=== PATIENT | female | born 1960 | race Hispanic/Latino ===

== ENCOUNTER → 2016-05-21 | Outpatient (CLI) | payer OTHER ==
[~2016-05-21] MED LIST: *ANUSOI RE; /FENT50PA; ACET65TA OR; ALBU17IN2 INH; ALBU83IN INH; ALBUTEROL; ASPI1TAB PO; CELLCEPT; COLA100C2 OR; COMBVENT; DIAZ10TA2 PO; DIAZ5CON PO; DRISDOL PO; DULC10SU2 PR; FLON0.05; INSUDET SC; INSULANT SC; LEVA750T PO; LOPR50TA PO; MORP1SOL PO; NITR4TASL SL; NYST50SS SS; ONDA1TAB16 PO; OXYC1SOL PO; OXYC1TAB57 PO; OXYC20TA21 PO; OXYC40TA12 PO; OXYC40TA19 OR; OXYC5CAP4; OXYC5CAP4 PO; OXYCO5TA PO; PRED5SOL10 PO; PRED5TAB OR; SILV1CRE19 TOP; SILV50CR TOP; TIZA4TAB OR; TYLE325T5 PO; VALI5TAB; VALI5TAB PO; XANA0.25 PO; [UNRECOGNIZED DRUG - CODE]; [UNRECOGNIZED DRUG - CODE] PO; [UNRECOGNIZED DRUG - CODE] PO; [UNRECOGNIZED DRUG - CODE] PV; [UNRECOGNIZED DRUG - OTHER]; [UNRECOGNIZED DRUG - OTHER]; hydroxychloroquine
[2016-05-21 20:37] LABS: ANION GAP 9 MEQ/L (8-16); BLOOD UREA NITROGEN 11 MG/DL (7-18); CALCIUM LEVEL 8.6 MG/DL (8.5-10.1); CARBON DIOXIDE LEVEL 24 MEQ/L (21-32); CHLORIDE LEVEL 108 MEQ/L (98-107); GLOMERULAR FILTRATION RATE > 60.0 (>51); GLUCOSE, FASTING 109 MG/DL (70-105); POTASSIUM SERUM 3.8 MEQ/L (3.5-5.1); SODIUM LEVEL 141 MEQ/L (136-145)
== END ==
LOC: M WUC 16:23
PROVIDERS: ATTEND Family Medicine
DX: M62.838 Other muscle spasm (principal)

== ENCOUNTER → 2016-08-11 | Outpatient (CLI) | payer OTHER ==
[~2016-08-11] MED LIST changes: +LOPR1TAB6 PO; -LOPR50TA PO; +OXYC-517 PO; -OXYC40TA12 PO; +OXYC40TA13 PO; -OXYCO5TA PO
== END ==
LOC: M LAB 12:43
PROVIDERS: ATTEND Nurse Practitioner Family
DX: A09 Infectious gastroenteritis and colitis, unspecified (principal); R10.32 Left lower quadrant pain; R50.9 Fever, unspecified
CPT/HCPCS: 36415; 80053; 82150; 83690; 83735; 85025; G0463

== ENCOUNTER → 2016-11-24 | Outpatient (CLI) | payer OTHER ==
[~2016-11-24] MED LIST changes: -LEVA750T PO; +LEVA750T7 PO; -ONDA1TAB16 PO; +ONDA8TAB7 PO; +OXYC-405 PO; -OXYC1SOL PO; +OXYC1SOL3 PO; -OXYC1TAB57 PO; -OXYC20TA21 PO; +OXYC20TA40 PO; -OXYC40TA13 PO; +OXYC40TA29 PO; -SILV1CRE19 TOP; +SILV1CRE60 TOP
[2016-11-24 19:33] LABS: MEAN CORPUSCULAR HEMOGLOBIN 23.2 pg (27.0-33.0); MEAN CORPUSCULAR HGB CONC 31.8 g/dl (32.0-36.5); MEAN CORPUSCULAR VOLUME 72.8 fl (80.0-96.0); RED CELL DISTRIBUTION WIDTH 15.6 % (11.5-14.5)
[2016-11-24 20:03] LABS: ALBUMIN 3.2 GM/DL (3.2-5.2); ALKALINE PHOSPHATASE 124 U/L (45-117); ALT/SGPT 16 U/L (12-78); ANION GAP 7 MEQ/L (8-16); AST/SGOT 33 U/L (15-37); BILIRUBIN,TOTAL 0.6 MG/DL (0.2-1.0); BLOOD UREA NITROGEN 11 MG/DL (7-18); CALCIUM LEVEL 8.6 MG/DL (8.5-10.1); CARBON DIOXIDE LEVEL 27 MEQ/L (21-32); CHLORIDE LEVEL 105 MEQ/L (98-107); CREATININE FOR GFR 0.95 MG/DL (0.55-1.02); GLOMERULAR FILTRATION RATE > 60.0 (>51); GLUCOSE, FASTING 137 MG/DL (70-105); MAGNESIUM LEVEL 2.2 MG/DL (1.8-2.4); POTASSIUM SERUM 4.3 MEQ/L (3.5-5.1); SODIUM LEVEL 139 MEQ/L (136-145); TOTAL PROTEIN 7.8 GM/DL (6.4-8.2)
== END ==
LOC: M SMT 14:55
PROVIDERS: ATTEND Physician Assistant
DX: M32.19 Other organ or system involvement in systemic lupus erythematosus (principal); D89.9 Disorder involving the immune mechanism, unspecified; R25.2 Cramp and spasm
CPT/HCPCS: 36415; 80053; 83735; 85027; G0463

== ENCOUNTER → 2017-01-21 | Outpatient (CLI) | payer OTHER ==
[2017-01-21 17:38] LABS: IONIZED CALCIUM 4.6 MG/DL (4.5-5.3)
[2017-01-21 20:06] LABS: MAGNESIUM LEVEL 1.9 MG/DL (1.8-2.4); POTASSIUM SERUM 3.7 MEQ/L (3.5-5.1)
== END ==
LOC: M SMT 14:35
PROVIDERS: ATTEND Family Medicine
DX: R25.2 Cramp and spasm (principal)

== ENCOUNTER → 2017-05-07 | Outpatient (CLI) | payer OTHER ==
--- NOTE | 2017-05-07 15:11 | REP ---
Abdominal aortic sonography: History: Abdominal pain. Comparison CT abdomen is from July 24, 2015. No abdominal aortic aneurysm is seen. The abdominal aorta measures 2.2 cm in AP by 2.7 cm in transverse dimension proximally at the diaphragmatic hiatus. At the level of the main renal artery origins these dimensions are 1.6 x 1.9 cm. The distal aorta measures 1.6 x 1.4 cm. Right and left common iliac arteries are normal measuring 0.9 and 1.0 cm in AP dimension respectively. Impression: No abdominal aortic aneurysm seen. Signed by Alejandro Blandon MD 05/07/2017 04:02 P
== END ==
LOC: M RAD 08:06
PROVIDERS: ATTEND Family Medicine
DX: R10.9 Unspecified abdominal pain (principal)

== ENCOUNTER → 2017-06-10 | Outpatient (CLI) | payer OTHER ==
[2017-06-10 18:56] LABS: BASO % 0.3 % (0.0-1.0); EOS # 0.1 10^3/uL (0.0-0.50); EOS % 2.3 % (0.0-3.0); HEMATOCRIT 34.9 % (36.0-47.0); HEMOGLOBIN 10.9 g/dl (12.0-16.0); IMMATURE GRANULOCYTE % 0.2 % (0-0); LYMPH # 2.8 10^3/uL (1.5-4.5); LYMPH % 48.7 % (24.0-44.0); MEAN CORPUSCULAR HEMOGLOBIN 24.2 pg (27.0-33.0); MEAN CORPUSCULAR HGB CONC 31.2 g/dl (32.0-36.5); MEAN CORPUSCULAR VOLUME 77.6 fl (80.0-96.0); MONO # 0.7 10^3/uL (0.0-0.8); MONO % 11.7 % (0.0-5.0); NEUTROPHILS # 2.1 10^3/uL (1.8-7.7); NEUTROPHILS % 36.8 % (36.0-66.0); PLATELET COUNT, AUTOMATED 284 10^3/uL (150-450); RED CELL DISTRIBUTION WIDTH 14.5 % (11.5-14.5); WHITE BLOOD COUNT 5.7 10^3/uL (4.0-10.0)
[2017-06-10 19:56] LABS: ALBUMIN 3.3 GM/DL (3.2-5.2); ALBUMIN/GLOBULIN RATIO 0.79 (1.00-1.93); ALKALINE PHOSPHATASE 118 U/L (45-117); ALT/SGPT 32 U/L (12-78); ANION GAP 6 MEQ/L (8-16); AST/SGOT 50 U/L (7-37); BILIRUBIN,TOTAL 0.4 MG/DL (0.2-1.0); BLOOD UREA NITROGEN 11 MG/DL (7-18); CALCIUM LEVEL 8.4 MG/DL (8.5-10.1); CARBON DIOXIDE LEVEL 29 MEQ/L (21-32); CHLORIDE LEVEL 106 MEQ/L (98-107); CREATININE FOR GFR 0.78 MG/DL (0.55-1.02); GLOMERULAR FILTRATION RATE > 60.0 (>51); GLUCOSE, FASTING 135 MG/DL (70-100); MAGNESIUM LEVEL 2.2 MG/DL (1.8-2.4); POTASSIUM SERUM 4.4 MEQ/L (3.5-5.1); SODIUM LEVEL 141 MEQ/L (136-145); TOTAL PROTEIN 7.5 GM/DL (6.4-8.2)
[2017-06-12 08:07] LABS: CYTOMEGALOVIRUS IgG ANTIBODY <0.60 U/mL (0.00-0.59)
[2017-06-12 08:07] LABS: CYTOMEGALOVIRUS IgM ANTIBODY <30.0 AU/mL (0.0-29.9)
[2017-06-12 11:02] LABS: HEP C VIRUS AB SCREEN MEDICARE 0.1 INDEX (<0.8)
[2017-06-12 11:03] LABS: HIV 1&2 SCREEN CENTAUR NEGATIVE (NEGATIVE)
== END ==
LOC: M SMT 15:25
DX: R10.84 Generalized abdominal pain (principal); R25.2 Cramp and spasm
CPT/HCPCS: 83735

== ENCOUNTER 2017-06-13 13:13 | Emergency (ER) | payer OTHER ==
[2017-06-13] MEDS: NS 500 ML IV (14:55)
[2017-06-13 15:02] LABS: BASO % 0.4 % (0.0-1.0); EOS # 0.1 10^3/uL (0.0-0.50); EOS % 1.7 % (0.0-3.0); HEMATOCRIT 36.7 % (36.0-47.0); HEMOGLOBIN 11.5 g/dl (12.0-16.0); IMMATURE GRANULOCYTE % 0.1 % (0-0); LYMPH # 2.4 10^3/uL (1.5-4.5); LYMPH % 34.2 % (24.0-44.0); MEAN CORPUSCULAR HEMOGLOBIN 24.2 pg (27.0-33.0); MEAN CORPUSCULAR HGB CONC 31.3 g/dl (32.0-36.5); MEAN CORPUSCULAR VOLUME 77.3 fl (80.0-96.0); MONO # 0.7 10^3/uL (0.0-0.8); MONO % 9.5 % (0.0-5.0); NEUTROPHILS # 3.8 10^3/uL (1.8-7.7); NEUTROPHILS % 54.1 % (36.0-66.0); PLATELET COUNT, AUTOMATED 323 10^3/uL (150-450); RED BLOOD COUNT 4.75 10^6/uL (4.00-5.40); RED CELL DISTRIBUTION WIDTH 14.4 % (11.5-14.5)
[2017-06-13] MEDS: MORPHINE 4 MG/ML 1ML SYRINGE IV (15:35)
[2017-06-13 15:41] LABS: ALBUMIN 3.5 GM/DL (3.2-5.2); ALBUMIN/GLOBULIN RATIO 0.67 (1.00-1.93); ALKALINE PHOSPHATASE 109 U/L (45-117); ALT/SGPT 38 U/L (12-78); ANION GAP 5 MEQ/L (8-16); AST/SGOT 57 U/L (7-37); BILIRUBIN,DIRECT < 0.1 MG/DL (0.0-0.2); BILIRUBIN,TOTAL 0.5 MG/DL (0.2-1.0); BLOOD UREA NITROGEN 12 MG/DL (7-18); CALCIUM LEVEL 8.7 MG/DL (8.5-10.1); CARBON DIOXIDE LEVEL 28 MEQ/L (21-32); CHLORIDE LEVEL 108 MEQ/L (98-107); GLOMERULAR FILTRATION RATE > 60.0 (>51); GLUCOSE, FASTING 155 MG/DL (70-100); LIPASE 90 U/L (73-393); POTASSIUM SERUM 3.4 MEQ/L (3.5-5.1); SODIUM LEVEL 141 MEQ/L (136-145); TOTAL PROTEIN 8.7 GM/DL (6.4-8.2)
[2017-06-13 15:41] LABS: LACTIC ACID SEPSIS PROTOCOL 1.2 MMOL/L (0.4-2.0)
[2017-06-13 15:48] LABS: INR 1.08; PROTHROMBIN TIME 14.2 SECONDS (12.4-14.5)
[2017-06-13] MEDS ORDERED: ISOVUE-370 76% 100ML VIAL (Q9967) As Ordered (15:57)
[2017-06-13 17:02] LABS: KETONE, URINE AUTO RFX NEGATIVE (NEGATIVE); LEUKOCYTE ESTERASE UR AUTO RFX NEGATIVE (NEGATIVE); NITRITE, URINE AUTO RFX NEGATIVE (NEGATIVE); RBC, URINE AUTO RFX 0 /HPF (0-3); SPECIFIC GRAVITY UR AUTO RFX 1.019 (1.002-1.035); SQUAM EPITHELIAL CELL UR AURFX 0 /HPF (0-6); WBC, URINE AUTO RFX 0 /HPF (0-3)
[2017-06-13] MEDS: HYDROmorphone HCL 1 MG/ML SYRINGE (J1170) IV (17:47)
== END 2017-06-13 18:20 | disposition home or self-care (01) ==
LOC: M ED 13:13
DX: R10.9 Unspecified abdominal pain (principal); R11.2 Nausea with vomiting, unspecified; R19.7 Diarrhea, unspecified; E11.9 Type 2 diabetes mellitus without complications; J45.909 Unspecified asthma, uncomplicated; K21.9 Gastro-esophageal reflux disease without esophagitis; M32.9 Systemic lupus erythematosus, unspecified; M81.0 Age-related osteoporosis without current pathological fracture; F41.9 Anxiety disorder, unspecified; F32.9 Major depressive disorder, single episode, unspecified; Z87.440 Personal history of urinary (tract) infections; Z86.73 Personal history of transient ischemic attack (TIA), and cerebral infarction without residual deficits; Z77.098 Contact with and (suspected) exposure to other hazardous, chiefly nonmedicinal, chemicals; F12.10 Cannabis abuse, uncomplicated; K57.30 Diverticulosis of large intestine without perforation or abscess without bleeding; K76.0 Fatty (change of) liver, not elsewhere classified; Z79.891 Long term (current) use of opiate analgesic; Z79.899 Other long term (current) drug therapy; Z88.2 Allergy status to sulfonamides; Z88.0 Allergy status to penicillin; Z88.8 Allergy status to other drugs, medicaments and biological substances; Z91.018 Allergy to other foods; Z91.010 Allergy to peanuts
CPT/HCPCS: J1170

== ENCOUNTER 2017-06-19 13:44 | Emergency (ER) | payer OTHER ==
[2017-06-19] MEDS: ONDANSETRON 4MG/2ML VIAL (J2405) IV (14:15)
[2017-06-19] MEDS: NS 1,000 ML IV (14:15)
[2017-06-19 15:02] LABS: BASO % 0.4 % (0.0-1.0); EOS # 0.1 10^3/uL (0.0-0.50); EOS % 1.6 % (0.0-3.0); HEMATOCRIT 36.5 % (36.0-47.0); HEMOGLOBIN 11.6 g/dl (12.0-16.0); IMMATURE GRANULOCYTE % 0.4 % (0-0); LYMPH # 2.3 10^3/uL (1.5-4.5); MEAN CORPUSCULAR HEMOGLOBIN 24.2 pg (27.0-33.0); MEAN CORPUSCULAR HGB CONC 31.8 g/dl (32.0-36.5); MONO # 0.6 10^3/uL (0.0-0.8); NEUTROPHILS % 61.6 % (36.0-66.0); PLATELET COUNT, AUTOMATED 356 10^3/uL (150-450); RED CELL DISTRIBUTION WIDTH 14.9 % (11.5-14.5)
[2017-06-19] MEDS: diphenhydrAMINE INJ 50MG/ML VIAL (J1200) IV (16:30)
[2017-06-19] MEDS: METOCLOPRAMIDE INJ 10MG/2ML VIAL (J2765) IV (16:30)
[2017-06-19 17:32] LABS: ALBUMIN 3.3 GM/DL (3.2-5.2); ALBUMIN/GLOBULIN RATIO 0.75 (1.00-1.93); ALKALINE PHOSPHATASE 85 U/L (45-117); ALT/SGPT 39 U/L (12-78); ANION GAP 6 MEQ/L (8-16); AST/SGOT 81 U/L (7-37); BILIRUBIN,TOTAL 0.9 MG/DL (0.2-1.0); BLOOD UREA NITROGEN 9 MG/DL (7-18); CALCIUM LEVEL 8.3 MG/DL (8.5-10.1); CARBON DIOXIDE LEVEL 27 MEQ/L (21-32); CHLORIDE LEVEL 107 MEQ/L (98-107); CREATININE FOR GFR 0.86 MG/DL (0.55-1.30); GLOMERULAR FILTRATION RATE > 60.0 (>51); GLUCOSE, FASTING 107 MG/DL (70-100); LIPASE 78 U/L (73-393); POTASSIUM SERUM 3.9 MEQ/L (3.5-5.1); SODIUM LEVEL 140 MEQ/L (136-145); TOTAL PROTEIN 7.7 GM/DL (6.4-8.2)
[2017-06-19] MEDS ORDERED: metroNIDAZOLE 500 MG in APPROPRIATE DILUENT 1 EA IV (18:15)
[2017-06-19] MEDS: CIPROFLOXACIN 400 MG in APPROPRIATE DILUENT 1 EA IV (18:25)
[2017-06-19] MEDS: metroNIDAZOLE (FLAGYL) 500 MG TAB PO (20:11)
== END 2017-06-19 20:52 | disposition home or self-care (01) ==
LOC: M ED 13:44
DX: A04.0 Enteropathogenic Escherichia coli infection (principal); R11.2 Nausea with vomiting, unspecified; R19.7 Diarrhea, unspecified; G43.909 Migraine, unspecified, not intractable, without status migrainosus; I73.00 Raynaud's syndrome without gangrene; M35.00 Sjogren syndrome, unspecified; M32.9 Systemic lupus erythematosus, unspecified; K56.50 Intestinal adhesions [bands], unspecified as to partial versus complete obstruction; Z79.899 Other long term (current) drug therapy; Z88.8 Allergy status to other drugs, medicaments and biological substances; Z91.040 Latex allergy status; Z91.010 Allergy to peanuts; Z91.018 Allergy to other foods; Z88.0 Allergy status to penicillin; Z88.2 Allergy status to sulfonamides
CPT/HCPCS: J1200

== ENCOUNTER → 2017-07-10 | Outpatient (CLI) | payer OTHER | LOC: M WUC 16:54 | DX: M79.645 Pain in left finger(s) (principal) ==

== ENCOUNTER 2018-02-21 14:44 | Emergency (ER) | payer OTHER ==
[2018-02-21] MEDS: NS 1,000 ML IV (15:26)
[2018-02-21] MEDS: KETOROLAC 30 MG/ML VIAL (J1885) IV (15:27)
[2018-02-21 16:09] LABS: BASO % 0.2 % (0.0-1.0); EOS # 0.2 10^3/uL (0.0-0.50); EOS % 2.3 % (0.0-3.0); HEMATOCRIT 35.3 % (36.0-47.0); HEMOGLOBIN 11.4 g/dl (12.0-15.5); IMMATURE GRANULOCYTE % 0.2 % (0-3.0); LYMPH # 3.2 10^3/uL (1.5-4.5); LYMPH % 38.3 % (24.0-44.0); MEAN CORPUSCULAR HEMOGLOBIN 24.3 pg (27.0-33.0); MEAN CORPUSCULAR HGB CONC 32.3 g/dl (32.0-36.5); MEAN CORPUSCULAR VOLUME 75.1 fl (80.0-96.0); MONO # 0.7 10^3/uL (0.0-0.8); MONO % 8.3 % (0.0-5.0); NEUTROPHILS # 4.2 10^3/uL (1.8-7.7); NEUTROPHILS % 50.7 % (36.0-66.0); PLATELET COUNT, AUTOMATED 316 10^3/uL (150-450); RED CELL DISTRIBUTION WIDTH 14.6 % (11.5-14.5); WHITE BLOOD COUNT 8.3 10^3/uL (4.0-10.0)
[2018-02-21 16:31] LABS: ALBUMIN 3.7 GM/DL (3.2-5.2); ALBUMIN/GLOBULIN RATIO 0.79 (1.00-1.93); ALKALINE PHOSPHATASE 106 U/L (45-117); ALT/SGPT 48 U/L (12-78); ANION GAP 8 MEQ/L (8-16); AST/SGOT 76 U/L (7-37); BLOOD UREA NITROGEN 14 MG/DL (7-18); CALCIUM LEVEL 8.7 MG/DL (8.5-10.1); CARBON DIOXIDE LEVEL 27 MEQ/L (21-32); CHLORIDE LEVEL 105 MEQ/L (98-107); CREATININE FOR GFR 1.05 MG/DL (0.55-1.30); GLOMERULAR FILTRATION RATE 57.9 (>51); GLUCOSE, FASTING 111 MG/DL (70-100); LIPASE 89 U/L (73-393); POTASSIUM SERUM 3.6 MEQ/L (3.5-5.1); SODIUM LEVEL 140 MEQ/L (136-145); TOTAL PROTEIN 8.4 GM/DL (6.4-8.2)
[2018-02-21] MEDS ORDERED: ISOVUE-370 76% 100ML VIAL (Q9967) As Ordered (16:45)
[2018-02-21 18:10] LABS: KETONE, URINE AUTO RFX NEGATIVE (NEGATIVE); MUCUS, URINE RFX SMALL (NEGATIVE); NITRITE, URINE AUTO RFX NEGATIVE (NEGATIVE); RBC, URINE AUTO RFX 3 /HPF (0-3); SQUAM EPITHELIAL CELL UR AURFX 24 /HPF (0-6); WBC, URINE AUTO RFX 2 /HPF (0-3)
[2018-02-21 18:58] LABS: LEUKOCYTE ESTERASE UR AUTO RFX 3+ (NEGATIVE); SPECIFIC GRAVITY UR AUTO RFX >1.060 (1.002-1.035)
[2018-02-21] MEDS: DICYCLOMINE 10 MG CAP PO (19:04)
== END 2018-02-21 19:25 | disposition home or self-care (01) ==
LOC: M ED 14:44
DX: R11.2 Nausea with vomiting, unspecified (principal); R10.84 Generalized abdominal pain; D59.9 Acquired hemolytic anemia, unspecified; E11.9 Type 2 diabetes mellitus without complications; M32.9 Systemic lupus erythematosus, unspecified; I10 Essential (primary) hypertension; J45.909 Unspecified asthma, uncomplicated; Z86.73 Personal history of transient ischemic attack (TIA), and cerebral infarction without residual deficits; G54.9 Nerve root and plexus disorder, unspecified; M35.00 Sjogren syndrome, unspecified; K57.90 Diverticulosis of intestine, part unspecified, without perforation or abscess without bleeding; Z95.0 Presence of cardiac pacemaker; Z88.8 Allergy status to other drugs, medicaments and biological substances; Z88.0 Allergy status to penicillin; Z88.2 Allergy status to sulfonamides; Z91.018 Allergy to other foods; Z79.899 Other long term (current) drug therapy; Z91.040 Latex allergy status
CPT/HCPCS: Q9967

== ENCOUNTER → 2018-02-24 | Outpatient (REF) | payer OTHER | LOC: M LAB REF 17:34 | DX: R19.7 Diarrhea, unspecified (principal) ==

== ENCOUNTER → 2018-03-01 | Outpatient (REF) | payer OTHER ==
[2018-03-01 17:57] LABS: BASO % 0.3 % (0.0-1.0); EOS # 0.2 10^3/uL (0.0-0.50); EOS % 2.6 % (0.0-3.0); HEMATOCRIT 33.6 % (36.0-47.0); HEMOGLOBIN 10.8 g/dl (12.0-15.5); IMMATURE GRANULOCYTE % 0.2 % (0-3.0); LYMPH # 2.1 10^3/uL (1.5-4.5); LYMPH % 32.4 % (24.0-44.0); MEAN CORPUSCULAR HEMOGLOBIN 24.3 pg (27.0-33.0); MEAN CORPUSCULAR HGB CONC 32.1 g/dl (32.0-36.5); MEAN CORPUSCULAR VOLUME 75.5 fl (80.0-96.0); MONO # 0.6 10^3/uL (0.0-0.8); MONO % 9.7 % (0.0-5.0); NEUTROPHILS # 3.5 10^3/uL (1.8-7.7); NEUTROPHILS % 54.8 % (36.0-66.0); RED BLOOD COUNT 4.45 10^6/uL (4.00-5.40); RED CELL DISTRIBUTION WIDTH 15.1 % (11.5-14.5); WHITE BLOOD COUNT 6.4 10^3/uL (4.0-10.0)
[2018-03-01 18:04] LABS: ALBUMIN 3.6 GM/DL (3.2-5.2); ANION GAP 8 MEQ/L (8-16); BLOOD UREA NITROGEN 6 MG/DL (7-18); CALCIUM LEVEL 8.6 MG/DL (8.5-10.1); CARBON DIOXIDE LEVEL 26 MEQ/L (21-32); CHLORIDE LEVEL 105 MEQ/L (98-107); CREATININE FOR GFR 0.94 MG/DL (0.55-1.30); GLOMERULAR FILTRATION RATE > 60.0 (>51); GLUCOSE, FASTING 149 MG/DL (70-100); PHOSPHORUS LEVEL 3.9 MG/DL (2.5-4.9); POTASSIUM SERUM 3.9 MEQ/L (3.5-5.1); SODIUM LEVEL 139 MEQ/L (136-145)
[2018-03-01 19:10] LABS: POS COUNT POS FLAG
== END ==
LOC: M SFHCPLAZ 15:03
DX: A09 Infectious gastroenteritis and colitis, unspecified (principal)

== ENCOUNTER 2018-06-10 11:29 | Emergency (ER) | payer OTHER ==
[~2018-06-10] VITALS: Ht 157.5 cm; Wt 59.1 kg
[~2018-06-10 11:29] MED LIST changes: +BENT10CA PO; +CIPR500S PO; +DICY20TA11 PO; +FLAG500T PO; +OXYC30TA72; +PROAAER10; +PROP60CA; +SIME80TA PO; +TRAM50TA2 PO; +[UNRECOGNIZED DRUG - REMARK] PB
[2018-06-10] MEDS ORDERED: DIAZ5SOL (11:38)
[2018-06-10 12:27] LABS: BILIRUBIN, URINE MANUAL NEGATIVE (NEGATIVE); GLUCOSE, URINE (UA) MANUAL NEGATIVE (NEGATIVE); KETONE, URINE MANUAL NEGATIVE (NEGATIVE); UROBILINOGEN, URINE MANUAL NORMAL (NORMAL)
[2018-06-10 12:44] LABS: AMORPHOUS SEDIMENT, URINE SMALL AMOUNT (NEGATIVE); BACTERIA, URINE SMALL AMOUNT; HYALINE CAST, URINE NONE SEEN /lpf (0-1); MUCUS, URINE SMALL AMOUNT (NEGATIVE); RBC, URINE 0-1 /hpf (0-3); SQUAMOUS EPITHELIAL CELL URINE SMALL AMOUNT /hpf (SMALL AMT); TRANSITIONAL EPI CELLS, URINE SMALL AMOUNT /hpf
[2018-06-10 13:21] LABS: BASO % 0.2 % (0.0-1.0); EOS # 0.1 10^3/uL (0.0-0.50); EOS % 2.1 % (0.0-3.0); HEMATOCRIT 32.6 % (36.0-47.0); HEMOGLOBIN 10.4 g/dl (12.0-15.5); LYMPH # 2.3 10^3/uL (1.5-4.5); LYMPH % 41.5 % (24.0-44.0); MEAN CORPUSCULAR HGB CONC 31.9 g/dl (32.0-36.5); MEAN CORPUSCULAR VOLUME 75.3 fl (80.0-96.0); MONO # 0.7 10^3/uL (0.0-0.8); MONO % 11.8 % (0.0-5.0); NEUTROPHILS # 2.5 10^3/uL (1.8-7.7); NEUTROPHILS % 44.2 % (36.0-66.0); PLATELET COUNT, AUTOMATED 212 10^3/uL (150-450); RED BLOOD COUNT 4.33 10^6/uL (4.00-5.40); WHITE BLOOD COUNT 5.6 10^3/uL (4.0-10.0)
[2018-06-10 13:55] LABS: ALBUMIN 3.4 GM/DL (3.2-5.2); ALT/SGPT 31 U/L (12-78); AMYLASE 57 U/L (25-115); BILIRUBIN,DIRECT 0.2 MG/DL (0.0-0.2); BILIRUBIN,TOTAL 0.8 MG/DL (0.2-1.0); BLOOD UREA NITROGEN 9 MG/DL (7-18); CALCIUM LEVEL 8.4 MG/DL (8.5-10.1); CARBON DIOXIDE LEVEL 22 MEQ/L (21-32); CHLORIDE LEVEL 104 MEQ/L (98-107); CREATININE FOR GFR 0.95 MG/DL (0.55-1.30); GLOMERULAR FILTRATION RATE > 60.0 (>51); GLUCOSE, FASTING 158 MG/DL (70-100); LIPASE 64 U/L (73-393); POTASSIUM SERUM 3.8 MEQ/L (3.5-5.1); SODIUM LEVEL 137 MEQ/L (136-145); TOTAL PROTEIN 7.6 GM/DL (6.4-8.2)
[2018-06-10] MEDS ORDERED: VOLT1GEL15 TOP (14:58)
[2018-06-10] MEDS ORDERED: KETOROLAC 60 MG/2 ML VIAL (J1885) IM ONE (15:15)
--- NOTE | 2018-06-10 15:24 | REP ---
Urinary tract sonogram: History: Right flank pain. Comparison: Comparison CT study February 21, 2018. Findings: Scanning at the level of the urinary bladder shows no abnormality. Renal cortical echogenicity pattern is normal bilaterally and contours are smooth. There is no evidence of hydronephrosis, cyst, mass, or calculus in either kidney. The right kidney measures 9.7 x 5.5 x 4.2 cm. Left renal dimensions are 10.4 x 4.3 x 5.5 cm. There is a dromedary hump configuration in the left kidney unchanged from the comparison CT study. Impression: Normal urinary tract sonography. Electronically Signed by Alejandro Blandon MD 06/10/2018 03:16 P
[2018-06-10 16:16] VITALS: BP 110/82
== END 2018-06-10 16:38 | disposition home or self-care (01) ==
LOC: M ED 11:29
DX: M62.830 Muscle spasm of back (principal); M32.9 Systemic lupus erythematosus, unspecified; I25.10 Atherosclerotic heart disease of native coronary artery without angina pectoris; R00.1 Bradycardia, unspecified; Z79.899 Other long term (current) drug therapy; Z88.0 Allergy status to penicillin; Z88.2 Allergy status to sulfonamides; Z88.8 Allergy status to other drugs, medicaments and biological substances; Z91.018 Allergy to other foods; Z91.040 Latex allergy status

== ENCOUNTER 2018-06-27 20:09 | Inpatient (IN) | payer OTHER ==
[~2018-06-27] VITALS: Ht 157.5 cm; Wt 61.0 kg
[~2018-06-27 20:09] MED LIST changes: +DIAZ5SOL; -PROAAER10; +PROAAER10 INH; -PROP60CA; +PROP60CA PO; +VOLT1GEL15 TOP
[2018-06-27] MEDS ORDERED: HALOPERIDOL 5 MG/ML VIAL (J1630) IV STA (20:51)
[2018-06-27] MEDS ORDERED: diphenhydrAMINE INJ 50MG/ML VIAL (J1200) IV STA (20:51)
[2018-06-27] MEDS ORDERED: MORPHINE 2 MG/ML 1ML SYRINGE (J2270) IV ONE (21:00)
[2018-06-27] MEDS ORDERED: MORPHINE 10 MG/ML 1ML VIAL (J2270) IV ONE (21:00)
[2018-06-27] MEDS ORDERED: NS 1,000 ML IV ONE (21:00)
[2018-06-27] MEDS ORDERED: HALOPERIDOL 5 MG/ML VIAL (J1630) IM STA (21:28)
[2018-06-27] MEDS ORDERED: MORPHINE 4 MG/ML 1ML VIAL/SYRINGE (J2270) IM ONE (21:30)
[2018-06-27] MEDS ORDERED: diphenhydrAMINE INJ 50MG/ML VIAL (J1200) IM ONE (21:30)
[2018-06-27 23:04] LABS: BASO % 0.4 % (0.0-1.0); EOS # 0.1 10^3/uL (0.0-0.50); EOS % 1.6 % (0.0-3.0); HEMATOCRIT 39.1 % (36.0-47.0); HEMOGLOBIN 12.6 g/dl (12.0-15.5); LYMPH # 2.5 10^3/uL (1.5-4.5); LYMPH % 32.7 % (24.0-44.0); MEAN CORPUSCULAR HEMOGLOBIN 23.9 pg (27.0-33.0); MEAN CORPUSCULAR HGB CONC 32.2 g/dl (32.0-36.5); MEAN CORPUSCULAR VOLUME 74.2 fl (80.0-96.0); MONO # 1.1 10^3/uL (0.0-0.8); MONO % 14.2 % (0.0-5.0); NEUTROPHILS # 3.9 10^3/uL (1.8-7.7); NEUTROPHILS % 50.8 % (36.0-66.0); PLATELET COUNT, AUTOMATED 185 10^3/uL (150-450); RED BLOOD COUNT 5.27 10^6/uL (4.00-5.40); WHITE BLOOD COUNT 7.6 10^3/uL (4.0-10.0)
[2018-06-27 23:22] LABS: ALBUMIN 2.7 GM/DL (3.2-5.2); ALT/SGPT 35 U/L (12-78); BILIRUBIN,DIRECT 0.2 MG/DL (0.0-0.2); BILIRUBIN,TOTAL 0.8 MG/DL (0.2-1.0); BLOOD UREA NITROGEN 15 MG/DL (7-18); CALCIUM LEVEL 7.9 MG/DL (8.5-10.1); CARBON DIOXIDE LEVEL 25 MEQ/L (21-32); CHLORIDE LEVEL 103 MEQ/L (98-107); GLOMERULAR FILTRATION RATE > 60.0 (>51); GLUCOSE, FASTING 242 MG/DL (70-100); LIPASE 65 U/L (73-393); POTASSIUM SERUM 3.3 MEQ/L (3.5-5.1); SODIUM LEVEL 137 MEQ/L (136-145); TOTAL PROTEIN 7.1 GM/DL (6.4-8.2)
[2018-06-27] MEDS ORDERED: ISOVUE-370 76% 100ML VIAL (Q9967) As Ordered ONE (23:48)
--- NOTE | 2018-06-28 01:07 | REPVR ---
EXAM: CT Abdomen and Pelvis With Contrast EXAM DATE/TIME: 06/27/2018 12:00 AM CLINICAL HISTORY: 58 years old, female; Pain; Abdominal pain; Additional info: Pain/emesis/distension TECHNIQUE: Axial computed tomography images of the abdomen and pelvis with intravenous contrast. All CT scans at this facility use at least one of these dose optimization techniques: automated exposure control; mA and/or kV adjustment per patient size (includes targeted exams where dose is matched to clinical indication); or iterative reconstruction. Coronal and sagittal reformatted images were created and reviewed. CONTRAST: 100 ml of iso 370 administered intravenously. COMPARISON: CT ABD/PEL W/IV CONTRAST ONLY 02/21/2018 4:40 PM FINDINGS: Lower thorax: No suspicious mass or airspace process in the visualized lung bases. ABDOMEN: Liver: Liver is decreased in density, consistent with fatty infiltration. Gallbladder and bile ducts: Gallbladder is surgically absent. Prominent central bile ducts, likely postcholecystectomy capacitance effect. Pancreas: Pancreas appears normal. No focal mass or peripancreatic inflammation. Spleen: Spleen appears homogeneous without focal mass. Adrenals: Adrenal glands are normal in appearance. Kidneys and ureters: Kidneys appear normal, with no stone, solid mass or hydronephrosis. Stomach and bowel: No evidence of small bowel obstruction. Long segment distal small bowel wall thickening is present circumferentially with mesenteric edema and fluid. No obstructive change or intramural air. Diverticular changes are present within the colon without inflammation. Appendix: Normal caliber appendix is identified, with no adjacent inflammation. PELVIS: Bladder: Bladder appears normal. Reproductive: Uterus is surgically absent. ABDOMEN and PELVIS: Intraperitoneal space: Moderate volume transudate density abdominal free fluid is present. No pneumoperitoneum. No pneumoperitoneum. Bones/joints: Degenerative changes are seen in the lumbar spine with disc height loss, endplate osteophytes and hypertrophic facet arthropathy. Soft tissues: Unremarkable. Vasculature: Main portal and splenic veins enhance normally. Lymph nodes: Normal. No enlarged lymph nodes. IMPRESSION: 1. Findings are highly suggestive of distal small bowel inflammatory or infectious enteritis with mesenteric edema and small volume ascites. No obstruction or perforation. 2. Probable hepatic steatosis. 3. Normal appearing appendix Electronically signed by: Julius Rojas On 06/28/2018 01:06:58 AM
[2018-06-28] MEDS ORDERED: MORPHINE 4 MG/ML 1ML VIAL/SYRINGE (J2270) IV ONE (02:00)
[2018-06-28] MEDS ORDERED: AFIN5TAB PO (02:08)
[2018-06-28] MEDS ORDERED: VOLT1GEL15 TOP (02:08)
[2018-06-28] MEDS ORDERED: OXYC30TA72 PO (02:15)
[2018-06-28] MEDS ORDERED: OXYC5SOL15 PO (02:15)
[2018-06-28] MEDS ORDERED: PRED5PAK2 PO (02:15)
[2018-06-28] MEDS ORDERED: PROC5TA PO (02:15)
[2018-06-28] MEDS ORDERED: [UNRECOGNIZED DRUG - CODE] PO (02:15)
[2018-06-28] MEDS ORDERED: METO10TA2 PO (02:15)
[2018-06-28] MEDS ORDERED: FLUTISP (02:15)
[2018-06-28] MEDS ORDERED: PATIENT COMMENTS (02:15)
[2018-06-28] MEDS ORDERED: REST0.05 OU (02:15)
[2018-06-28] MEDS ORDERED: ONDANSETRON 4MG/2ML VIAL (J2405) IV PRN (03:15)
[2018-06-28] MEDS ORDERED: KCL 10MEQ/100ML SWI (KRUN) 10 MEQ in APPROPRIATE DILUENT 1 EA IV ONE ×2 (03:30→04:30)
--- NOTE | 2018-06-28 04:29 | HPEPDOC ---
[facility] Medical History & Physical Date of Admission Jun 28, 2018 Other Provider Admitting/dictating: Elmer Servin M.D. Attending Physician: Nate Camacho MD History and Physical CHIEF COMPLAINT: Abdominal pains 3 days' duration HISTORY OF PRESENT ILLNESS: Patient is a 58-year-old woman with history of lupus, diabetes with pacemaker placement, Sjogren's disease, Raynaud's, gastroparesis, osteonecrosis of the hips, asthma, coronary vasospasm, who came in complaining of 3 days' duration of abdominal pains associated with nausea, vomiting and diarrhea. She recounts nausea and dry heave for the past 1 week, resulting in poor oral intake. However, 3 days ago, she developed vomiting of recently ingested food, nonbloody, nonbilious as well as generalized abdominal pains. She describes pain as sore rate 89/10 in intensity, nonradiating, relieved by lying still and aggravated by vomiting. For the past 3 days she has had nothing to eat occasionally able to tolerate fluids until most recently. She denies any chills or fever. No chest pain, no palpitations, no dizziness, no shortness of breath. No cough, showed denies any change in her urinary habits. She was evaluated in the emergency room with a liter bolus of IV fluids and with anti-emetics imaging reveals bowel inflammation. PAST MEDICAL HISTORY: Per HPI She denies diabetes PAST SURGICAL HISTORY: 1. Hysterectomy, 2. ovarian cyst removal in the . 3. Right breast cyst. 4. Laparoscopic cholecystectomy in 2010. 5. Pacer placement for Lupus carditis. SOCIAL HISTORY: Lives with her . Denies smoking, denies illicit drug use. Denies alcohol. Uses marijuana for abdominal pains last use this morning. FAMILY HISTORY: Father: at age 99. He was diagnosed with hypertension and stroke Mother: at age 53 diagnosed with CHF and from complications of asthma Siblings: 2 sisters alive, also diagnosed with SLE Children: 2 daughters, one diagnosed with asthma, the other alive and well. ALLERGIES: Please see below. REVIEW OF SYSTEMS: She denies any chills or fever. No chest pain, no palpitations, no dizziness, no shortness of breath. No cough, showed denies any change in her urinary habits. Other systems reviewed negative. 12 point review of systems done HOME MEDICATIONS: Please see below. PHYSICAL EXAMINATION: VITAL SIGNS: Temperature 98.6, pulse 99, respiratory rate 18, blood pressure 14 5/69, pulse oximetry 97% on room air. GENERAL APPEARANCE: middle aged woman, lying calmly in bed, not in any apparent distress. She is not pale, anicteric and afebrile HEENT: Atraumatic. Neck: Supple. LUNGS: Clear to auscultation bilaterally. CARDIOVASCULAR: S1 and 2 heard, no murmurs, rubs or gallops. ABDOMEN: Soft, Adele umbilical tenderness, not distended. Bowel sounds hyperactive. MUSCULOSKELETAL: Apparently within normal limits. EXTREMITIES: No pedal edema, 2+ bilateral pedal pulses noted. NEUROLOGICAL: Awake, alert, oriented 3. PSYCHIATRIC: Normal affect LABORATORY DATA: See below. IMAGING: CT abdomen and pelvis: IMPRESSION: 1. Findings are highly suggestive of distal small bowel inflammatory or infectious enteritis with mesenteric edema and small volume ascites. No obstruction or perforation. 2. Probable hepatic steatosis. 3. Normal appearing appendix MICROBIOLOGY: Please see below. ASSESSMENT: 58-year-old woman with above mentioned comorbid history comes complaining of abdominal pains associated with nausea, vomiting with diarrhea of 3 days duration. Exam significant for periumbilical tenderness. CT abdomen reveals bowel inflammation. DIAGNOSES: 1. Gastroenteritis. 2. Hypokalemia . PLAN: 1. Patient will be transferred to the medical floor with remote telemetry under care of Dr. Camacho. 2. Will continue volume expansion with normal saline to run at 100 mils per hour. 3. Will replete potassium IV, 20 mEq K run repeat BMP this morning by 6 AM. 4. IV Zofran when necessary, vomiting. 5. IV pantoprazole. I will hold off antibiotics for now. Patient's been no clear signs of systemic infection. 6. DVT prophylaxis, TEDs. 7. Patient will remain nothing by mouth for now. She can commence a trial of cl ear liquid diet when able to tolerate by mouth. 8. We'll resume by mouth medications as soon as she can tolerate by mouth. 9. Further management will be per patient's clinical course. Vital Signs Vital Signs Date Time Temp Pulse Resp B/P (MAP) Pulse Ox O2 Delivery O2 Flow Rate FiO2 06/28/18 02:51 19 06/28/18 00:02 98.6 99 145/69 (94) 97 Room Air Laboratory Data Labs 24H Laboratory Tests 2 06/27/18 22:48: Immature Granulocyte % (Auto) 0.3, White Blood Count 7.6, Red Blood Count 5.27, Hemoglobin 12.6, Hematocrit 39.1, Mean Corpuscular Volume 74.2L, Mean Corpuscular Hemoglobin 23.9L, Mean Corpuscular Hemoglobin Concent 32.2, Red Cell Distribution Width 14.3, Platelet Count 185, Neutrophils (%) (Auto) 50.8, Lymphocytes (%) (Auto) 32.7, Monocytes (%) (Auto) 14.2H, Eosinophils (%) (Auto) 1.6, Basophils (%) (Auto) 0.4, Neutrophils # (Auto) 3.9, Lymphocytes # (Auto) 2.5, Monocytes # (Auto) 1.1H, Eosinophils # (Auto) 0.1, Basophils # (Auto) 0.0, Nucleated Red Blood Cells % (auto) 0.0, Anion Gap 9, Glomerular Filtration Rate > 60.0, Lactic Acid Level 1.2, Calcium Level 7.9L, Aspartate Amino Transf (AST/SGOT) 50H, Alanine Aminotransferase (ALT/SGPT) 35, Alkaline Phosphatase 90, Total Bilirubin 0.8, Direct Bilirubin 0.2, Total Protein 7.1, Albumin 2.7L, Albumin/Globulin Ratio 0.61L, Lipase 65L CBC/BMP Laboratory Tests 06/27/18 22:48 Red Blood Count 5.27, Mean Corpuscular Volume 74.2 L, Mean Corpuscular Hemoglobin 23.9 L, Mean Corpuscular Hemoglobin Concent 32.2, Red Cell Distribution Width 14.3, Neutrophils (%) (Auto) 50.8, Lymphocytes (%) (Auto) 32.7, Monocytes (%) (Auto) 14.2 H, Eosinophils (%) (Auto) 1.6, Basophils (%) (Auto) 0.4, Neutrophils # (Auto) 3.9, Lymphocytes # (Auto) 2.5, Monocytes # (Auto) 1.1 H, Eosinophils # (Auto) 0.1, Basophils # (Auto) 0.0 Home Medications Scheduled (Restasis) 0.05 % Emu, 1 DROP OU BID Erythromycin Ethylsuccinate (Eryped 400) 400 Mg/5 Ml Angela, 400 MG PO DAILY Everolimus (Afinitor) 5 Mg Tab, 2.5 MG PO BID Metoclopramide HCl (Metoclopramide HCl) 10 Mg Tab, 10 MG PO AC PATIENT USES ODT FORM OF METOCLOPRAMIDE Prednisone (Prednisone) 5 Mg Josh, 5 MG PO DAILY Propranolol HCl (Propranolol HCl ER) 60 Mg Cap, 60 MG PO DAILY [Liqui Cannibis] , 2 ML PB TID Scheduled PRN (Voltaren) 1 % Gel, 1 APLCT TOP QID PRN for PAIN apply to affected area(s) (Oxycodone Hydrochloride) 5 Mg/5 Ml Dee Dee, 5 ML PO Q6H PRN for PAIN Albuterol Sulfate (Proair Hfa) 108 Mcg/Act Aer, 2 PUFF INH Q4-6HP PRN for SHORTNESS OF BREATH Diazepam (Diazepam Intensol) 5 Mg/Ml Con, 1 ML PO BIDP PRN for ANXIETY Fluticasone Propionate (Fluticasone Propionate) 50 Mcg/Act Spr, 1 SPRAY NA BID PRN for ALLERGIES Oxycodone HCl (Oxycontin) 30 Mg Tab, 30 MG PO TID PRN for PAIN Prochlorperazine (Prochlorperazine Maleate) 5 Mg Tab, 5 MG PO TID PRN for NAUSEA Miscellaneous Medications [Patient Comments] FAMILY MEMBER PRESENT IN THE ROOM STATES KM HAS NOT TAKEN ANY MEDICATIONS FOR AT LEAST 3 DAYS EXCEPT FOR THE CANNIBIS BECAUSE SHE HAS BEEN VOMITING Allergies Coded Allergies: Sulfa Drugs (Unverified Allergy, Severe, THROAT CLOSES, 10/02/15) Sulfa Drugs Cross Reactors (Unverified Allergy, Severe, THROAT CLOSES, 10/02/15) Penicillins (Unverified Allergy, Intermediate, LIPS SWELL, 10/02/15) Penicillins Cross Reactors (Unverified Allergy, Intermediate, LIPS SWELL, 10/02/15) NUTS (Verified Allergy, Unknown, 01/30/06) Nalbuphine (Verified Allergy, Unknown, 08/19/12) Olives (Verified Allergy, Unknown, 01/30/06) [place] (Verified Allergy, Unknown, 08/19/12) Latex (Verified Adverse Reaction, Intermediate, LATEX SENSITIVITY, 10/02/15) Promethazine (Unverified Adverse Reaction, Intermediate, TACHY, 10/02/15) Colchicine (Unverified Adverse Reaction, Mild, NAUSEA, 10/02/15) ELMER SERVIN MD Jun 28, 2018 03:00
[2018-06-28] MEDS: PANTOPRAZOLE 40MG INJ (PROTONIX) (C9113) IV SCH (05:20)
[2018-06-28] MEDS: NS 1,000 ML IV SCH ×2 (05:20→13:15)
[2018-06-28] MEDS: MORPHINE 4 MG/ML 1ML VIAL/SYRINGE (J2270) IV PRN ×4 (05:46→21:59)
[2018-06-28 06:50] LABS: BASO % 0.1 % (0.0-1.0); EOS # 0.2 10^3/uL (0.0-0.50); EOS % 1.9 % (0.0-3.0); HEMATOCRIT 34.6 % (36.0-47.0); HEMOGLOBIN 10.9 g/dl (12.0-15.5); LYMPH # 2.5 10^3/uL (1.5-4.5); LYMPH % 32.1 % (24.0-44.0); MEAN CORPUSCULAR HEMOGLOBIN 23.6 pg (27.0-33.0); MEAN CORPUSCULAR HGB CONC 31.5 g/dl (32.0-36.5); MEAN CORPUSCULAR VOLUME 75.1 fl (80.0-96.0); MONO % 12.9 % (0.0-5.0); NEUTROPHILS # 4.1 10^3/uL (1.8-7.7); NEUTROPHILS % 52.7 % (36.0-66.0); PLATELET COUNT, AUTOMATED 192 10^3/uL (150-450); RED BLOOD COUNT 4.61 10^6/uL (4.00-5.40); WHITE BLOOD COUNT 7.8 10^3/uL (4.0-10.0)
[2018-06-28 07:28] LABS: BLOOD UREA NITROGEN 13 MG/DL (7-18); CALCIUM LEVEL 7.5 MG/DL (8.5-10.1); CARBON DIOXIDE LEVEL 25 MEQ/L (21-32); CHLORIDE LEVEL 105 MEQ/L (98-107); CREATININE FOR GFR 0.77 MG/DL (0.55-1.30); GLOMERULAR FILTRATION RATE > 60.0 (>51); GLUCOSE, FASTING 172 MG/DL (70-100); POTASSIUM SERUM 3.3 MEQ/L (3.5-5.1); SODIUM LEVEL 138 MEQ/L (136-145)
[2018-06-28] MEDS: methylPREDNISolone INJ 125 MG/2 ML VIAL (J2930) IV SCH (09:04)
[2018-06-28] MEDS ORDERED: KCL 20MEQ IN 100ML SWI (KRUN) 20 MEQ in APPROPRIATE DILUENT 1 EA IV ONE ×2 (10:15)
[2018-06-28] MEDS: KCL 10MEQ/100ML SWI (KRUN) 100 ML IV SCH ×2 (10:30→11:30)
[2018-06-28 14:24] VITALS: BP 136/78
--- NOTE | 2018-06-28 15:05 | REP ---
ABDOMEN, FLAT UPRIGHT PA CHEST, THREE VIEWS: HISTORY: Abdominal pain. COMPARISON: 09/16/2015 A small amount of air is present in the small and large intestine. Several air fluid levels are present. There are no dilated loops of intestine. There is no pneumoperitoneum. A minimal increased in interstitial markings is present in the lower lobes consistent with chronic interstitial change. IMPRESSION:Non-specific bowel gas pattern. Electronically Signed by Francisco Deal MD 06/28/2018 03:06 P
--- NOTE | 2018-06-28 15:53 | IPNPDOC ---
Subjective Date Seen The patient was seen on 06/28/18. Subjective Chief Complaint/HPI Patient reports her pain worsened . Has had long history of nausea, abdominal pain. This is when she started having vomiting with everything, including water. Constitutional: Denies: Chills, Fever ENT: Denies: Head Aches Pulmonary: Denies: Dyspnea Cardiovascular: Denies: Chest Pain Objective Physical Examination General Exam: Positive: Alert, Cooperative, Mild Distress Eye Exam: Positive: PERRLA ENT Exam: Positive: Atraumatic; Negative: Mucous membr. moist/pink (mucous membranes are dry but not cracked or furrowed) Neck Exam: Positive: Supple Chest Exam: Positive: Clear to auscultation; Negative: Rales, Rhonchi Heart Exam: Positive: Rate Normal, Normal S1, Normal S2 Abdomen Exam: Positive: Normal bowel sounds, Tenderness (Diffuse), Other (mildly distended. Pain left upper quadrant. No rebound tenderness. ); Negative: Mass Psych Exam: Positive: Mental status NL, Mood NL, Memory Intact, Oriented x 3 Assessment /Plan Problems (1) Abdominal pain Status: Acute Problem Text: CT showed some evidence of enteritis. No other signs of infection, no fever, WBC normal. Patient noted pain is still intense but better enough to try some sips of water. On IV zofran if needed and IV pantoprazole. Pain being controlled with IV morphine as patient cannot tolerate home oral pain medications. Differential includes gastroparesis, lupus enteritis, diabetes, other infectious cause. 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 (2) SLE (systemic lupus erythematosus related syndrome) Status: Chronic Problem Text: Currently on IV methylprednsiolone at this time. Holding home medication, including Afinitor, at this time. (3) Type 2 diabetes mellitus Onset Date: ~ 07/17/2015 Status: Chronic Problem Text: This is a steroid induced diabetes. When she is not on steroids she does well. However we are restarting her on steroids to help control her current symptoms. Plan/VTE VTE Prophylaxis Ordered?: Yes (Teds and squentials) VS, I&O, 24H, Fishbone Vital Signs/I&O Vital Signs Date Time Temp Pulse Resp B/P (MAP) Pulse Ox O2 Delivery O2 Flow Rate FiO2 06/28/18 14:24 97.6 74 19 136/78 (97) 98 06/28/18 00:02 Room Air Laboratory Data 24H LABS Laboratory Tests 2 06/27/18 22:48: Immature Granulocyte % (Auto) 0.3, White Blood Count 7.6, Red Blood Count 5.27, Hemoglobin 12.6, Hematocrit 39.1, Mean Corpuscular Volume 74.2L, Mean Corpuscular Hemoglobin 23.9L, Mean Corpuscular Hemoglobin Concent 32.2, Red Cell Distribution Width 14.3, Platelet Count 185, Neutrophils (%) (Auto) 50.8, Lymphocytes (%) (Auto) 32.7, Monocytes (%) (Auto) 14.2H, Eosinophils (%) (Auto) 1.6, Basophils (%) (Auto) 0.4, Neutrophils # (Auto) 3.9, Lymphocytes # (Auto) 2.5, Monocytes # (Auto) 1.1H, Eosinophils # (Auto) 0.1, Basophils # (Auto) 0.0, Nucleated Red Blood Cells % (auto) 0.0, Anion Gap 9, Glomerular Filtration Rate > 60.0, Lactic Acid Level 1.2, Calcium Level 7.9L, Aspartate Amino Transf (AST/SGOT) 50H, Alanine Aminotransferase (ALT/SGPT) 35, Alkaline Phosphatase 90, Total Bilirubin 0.8, Direct Bilirubin 0.2, Total Protein 7.1, Albumin 2.7L, Albumin/Globulin Ratio 0.61L, Lipase 65L 06/28/18 06:12: Immature Granulocyte % (Auto) 0.3, White Blood Count 7.8, Red Blood Count 4.61, Hemoglobin 10.9L, Hematocrit 34.6L, Mean Corpuscular Volume 75.1L, Mean Corpusc ular Hemoglobin 23.6L, Mean Corpuscular Hemoglobin Concent 31.5L, Red Cell Distribution Width 14.6H, Platelet Count 192, Neutrophils (%) (Auto) 52.7, Lymphocytes (%) (Auto) 32.1, Monocytes (%) (Auto) 12.9H, Eosinophils (%) (Auto) 1.9, Basophils (%) (Auto) 0.1, Neutrophils # (Auto) 4.1, Lymphocytes # (Auto) 2.5, Monocytes # (Auto) 1.0H, Eosinophils # (Auto) 0.2, Basophils # (Auto) 0.0, Nucleated Red Blood Cells % (auto) 0.0, Anion Gap 8, Glomerular Filtration Rate > 60.0, Calcium Level 7.5L, Blood Urea Nitrogen 13, Creatinine 0.77, Sodium Level 138, Potassium Level 3.3L, Chloride Level 105, Carbon Dioxide Level 25 CBC/BMP Laboratory Tests 06/27/18 22:48 Red Blood Count 5.27, Mean Corpuscular Volume 74.2 L, Mean Corpuscular Hemoglobin 23.9 L, Mean Corpuscular Hemoglobin Concent 32.2, Red Cell Distribution Width 14.3, Neutrophils (%) (Auto) 50.8, Lymphocytes (%) (Auto) 32.7, Monocytes (%) (Auto) 14.2 H, Eosinophils (%) (Auto) 1.6, Basophils (%) (Auto) 0.4, Neutrophils # (Auto) 3.9, Lymphocytes # (Auto) 2.5, Monocytes # (Auto) 1.1 H, Eosinophils # (Auto) 0.1, Basophils # (Auto) 0.0 06/28/18 06:12 Red Blood Count 4.61, Mean Corpuscular Volume 75.1 L, Mean Corpuscular Hemoglobin 23.6 L, Mean Corpuscular Hemoglobin Concent 31.5 L, Red Cell Di stribution Width 14.6 H, Neutrophils (%) (Auto) 52.7, Lymphocytes (%) (Auto) 32.1, Monocytes (%) (Auto) 12.9 H, Eosinophils (%) (Auto) 1.9, Basophils (%) (Auto) 0.1, Neutrophils # (Auto) 4.1, Lymphocytes # (Auto) 2.5, Monocytes # (Auto) 1.0 H, Eosinophils # (Auto) 0.2, Basophils # (Auto) 0.0, Calcium Level 7.5 L GME ATTESTATION ATTENDING NOTE Family Medicine Attending Note: I was present on site to supervise Dale Price D.O. (OGME-3). We discussed the history and exam. I confirmed the henning elements during my [id number] encounter with the patient. We conferred on the assessment and plan; I agree with the note as documented. Taylor Felix has a long history of lupus related complications she has had lupus gastritis and enteritis in the past. 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 We are treating this with steroids to see if we can calm down the inflammation of her small intestine. I have been using erythromycin as a promotility agent for her in the outpatient setting recently. Once we have calmed down her intestinal inflammation we may need to use this again to get things moving. In the outpatient setting she uses liquid diazepam up to twice a day to help relax her muscles and decrease abdominal pain. As we don't have any diazepam currently available in the hospital I have put an order for when necessary lorazepam for the same reason. 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
[2018-06-28 17:51] LABS: HEMATOCRIT 34.1 % (36.0-47.0); HEMOGLOBIN 10.7 g/dl (12.0-15.5); MEAN CORPUSCULAR HEMOGLOBIN 23.8 pg (27.0-33.0); MEAN CORPUSCULAR HGB CONC 31.4 g/dl (32.0-36.5); MEAN CORPUSCULAR VOLUME 75.8 fl (80.0-96.0); PLATELET COUNT, AUTOMATED 163 10^3/uL (150-450); WHITE BLOOD COUNT 5.2 10^3/uL (4.0-10.0)
[2018-06-28] MEDS: LORazepam 2 MG/ML VIAL (J2060) IV PRN (17:55)
[2018-06-28 22:00] VITALS: BP 128/62
[2018-06-29] MEDS: NS 1,000 ML IV SCH ×2 (00:24→09:15)
[2018-06-29] MEDS: MORPHINE 4 MG/ML 1ML VIAL/SYRINGE (J2270) IV PRN ×2 (01:25→08:51)
[2018-06-29] MEDS: LORazepam 2 MG/ML VIAL (J2060) IV PRN (03:29)
[2018-06-29] MEDS: PANTOPRAZOLE 40MG INJ (PROTONIX) (C9113) IV SCH (03:29)
[2018-06-29 06:00] VITALS: BP 132/69
[2018-06-29 07:19] LABS: BLOOD UREA NITROGEN 13 MG/DL (7-18); CALCIUM LEVEL 7.7 MG/DL (8.5-10.1); CARBON DIOXIDE LEVEL 23 MEQ/L (21-32); CHLORIDE LEVEL 109 MEQ/L (98-107); CREATININE FOR GFR 0.63 MG/DL (0.55-1.30); GLOMERULAR FILTRATION RATE > 60.0 (>51); GLUCOSE, FASTING 144 MG/DL (70-100); POTASSIUM SERUM 3.5 MEQ/L (3.5-5.1); SODIUM LEVEL 138 MEQ/L (136-145)
[2018-06-29 08:05] LABS: HEMOGLOBIN A1c 9.4 %
[2018-06-29] MEDS: methylPREDNISolone INJ 125 MG/2 ML VIAL (J2930) IV SCH (08:48)
[2018-06-29] MEDS ORDERED: HYDROmorphone HCL 2 MG/ML 1ML VIAL (J1170) IV PRN (11:15)
[2018-06-29 12:00] VITALS: BP 139/70
[2018-06-29 13:10] LABS: C REACTIVE PROTEIN QUANTITATIV 1.49 MG/DL (0.00-0.30)
[2018-06-29] MEDS: BUDESONIDE EC 3 MG CAP (ENTOCORT EC) PO SCH (13:29)
[2018-06-29] MEDS: HYDROMORPHONE HCL 0.5 MG/ 0.5 ML SYRINGE (J1170 PER 1) IM PRN ×2 (14:05→17:41)
[2018-06-29] MEDS ORDERED: GLUCOSE 4 GM CHEW TABLET PO PRN (15:30)
[2018-06-29] MEDS ORDERED: DEXTROSE 50% 50 ML SYRINGE IV PRN (15:30)
[2018-06-29] MEDS ORDERED: GLUCAGON FOR INJ 1 MG VIAL (J1610) SC PRN (15:30)
[2018-06-29] MEDS: LORazepam 2 MG TAB PO PRN (16:46)
[2018-06-29] MEDS: HumaLOG INSULIN (NovoLOG) PER UNIT SC SCH ×2 (17:30→22:08)
--- NOTE | 2018-06-29 17:45 | IPNPDOC ---
Subjective Date Seen The patient was seen on 06/29/18. Subjective Chief Complaint/HPI Taylor Felix is feeling worse today. She states that it feels like the morphine isn't working. Unfortunately she has also lost her IV access and nursing reports that they have tried 5 times to restart it to no avail. She states she is trying to take down some of the clear liquids, but they make her feel so bad that she can only get a sip or two down before she has to stop. General: Denies: Chills, Normal Appetite Skin: Denies: Rash, Lesions Pulmonary: Denies: Cough Cardiovascular: Denies: Chest Pain, Palpitations Gastrointestinal: Reports: Nausea, Abdominal Pain Genitourinary: Denies: Dysuria Objective Physical Examination General Exam: Positive: Alert, Cooperative, Mild Distress (from the abdominal pain) Eye Exam: Positive: PERRLA; Negative: Sclera icteric ENT Exam: Positive: Atraumatic; Negative: Mucous membr. moist/pink (mucous membranes are dry but not cracked or furrowed) Neck Exam: Positive: Supple Chest Exam: Positive: Clear to auscultation; Negative: Rales, Rhonchi Heart Exam: Positive: Rate Normal, Normal S1, Normal S2 Abdomen Exam: Positive: BS Hypoactive, Tenderness (Diffuse), Other (mildly distended. Pain is more diffuse and jorge-umbillical today); Negative: Mass Extremity Exam: Negative: Edema Psych Exam: Positive: Mental status NL, Memory Intact, Oriented x 3 Assessment /Plan Problems (1) Enteritis Status: Acute Problem Text: 06/29: I have added Entocort to her regimen to try to deliver steroid directly to the inflamed bowel. I have consulted Dr. Phillip to evaluate whether this is lupus related enteritis. If that does not seem promising then, I will look at consulting GI tomorrow (no coverage today). I changed the morphine from 2mg Q3h to IM hydromorphone 0.5mg q3h prn for a slight increase in intensity of the regimen, but also an attempt to make the pain control last longer. 06/28: CT showed some evidence of enteritis. No other signs of infection, no fever, WBC normal. Patient noted pain is still intense but better enough to try some sips of water. On IV zofran if needed and IV pantoprazole. Pain being controlled with IV morphine as patient cannot tolerate home oral pain medications. Differential includes gastroparesis, lupus enteritis, diabetes, other infectious cause. 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 (2) SLE (systemic lupus erythematosus related syndrome) Status: Chronic Problem Text: Currently on IV methylprednsiolone at this time. Unfortunately, she has lost IV access. If it can't be reestablished in the next couple shifts, then will consider a mid-line tomorrow. Holding home medication, including Afinitor, at this time. (3) Type 2 diabetes mellitus Onset Date: ~ 07/17/2015 Status: Chronic Problem Text: Will add 10 units of basal insulin to her regimen starting tomorrow as she will only get worse while on steroids. Plan/VTE VTE Prophylaxis Ordered?: Yes (Teds and squentials) VS, I&O, 24H, Fishbone Vital Signs/I&O Vital Signs Date Time Temp Pulse Resp B/P (MAP) Pulse Ox O2 Delivery O2 Flow Rate FiO2 06/29/18 17:41 14 06/29/18 12:00 99.0 77 139/70 (93) 97 06/28/18 00:02 Room Air I&O- Last 24 Hours up to 6 AM 06/29/18 06:00 Intake Total 2520 ml Output Total 725 ml Balance 1795 ml Laboratory Data 24H LABS Laboratory Tests 2 06/28/18 20:25: Bedside Glucose (Misc Panel) 253H 06/28/18 21:32: 06/28/18 23:49: Bedside Glucose (Misc Panel) 229H 06/29/18 05:41: Anion Gap 6L, Glomerular Filtration Rate > 60.0, Estimated Mean Plasma Glucose 223H, Hemoglobin A1c 9.4, Blood Urea Nitrogen 13, Creatinine 0.63, Sodium Level 138, Potassium Level 3.5, Chloride Level 109H, Carbon Dioxide Level 23, Calcium Level 7.7L 06/29/18 12:03: Bedside Glucose (Misc Panel) 196H 06/29/18 12:37: Erythrocyte Sedimentation Rate 47H, C-Reactive Protein, Quantitative 1.49H, Complement C3 162, Complement C4 27 06/29/18 16:57: Bedside Glucose (Misc Panel) 253H CBC/BMP Laboratory Tests 06/29/18 05:41 Calcium Level 7.7 L Microbiology Microbiology 06/28/18 Gastrointestinal Tract Panel (PCR) - Final, Complete Nate Camacho MD Jun 29, 2018 5:45 pm
--- NOTE | 2018-06-29 18:12 | CR.PDOC ---
General Date of Consultation: Jun 29, 2018 Referring Provider: Nate Camacho MD Primary Care Physician: Nate Camacho MD Consultation REASON FOR CONSULTATION/CHIEF COMPLAINT: evaluate for lupus enteritis HISTORY OF PRESENT ILLNESS: Mrs. Jorgensen is a 67 year-old woman with a long standing history of lupus diagnosed in 1998 as per patient by Dr. Gilbert Rodriguez from [place], and eventually transferred care to Dr. Jyoti Blake in [place]. This time patient is admitted for intractable emesis and diarrhea, unable to tolerate anything by mouth. CT scan abdomen showed enteritis. Patient reports having this abdominal pain, nausea, vomiting and loose stools persistently for at least 6 months. She is a poor historian and history is confusing, but looking at old records, it seems she has been having this problem for more than 10 years. The first note available for review in [facility] records from Dr. Blake (vice president media relations) was in 2009 where it stated patient was on cellcept 1.5g BID, Rapamune 1mg daily and plaquenil 200mg BID for SLE, but she was having some abdominal issues possibly colitis, but it was not inflammatory back then per GI consultation note in [facility]. Cellcept was discontinued due to possible GI side effects. Then patient was supposed to see GI. As per patient they could not finish the colonoscopy and endoscopy. She couldn't explain why. She has been having multiple different "flares of lupus". She says it can flare in her brain, skin, lungs, heart, bowel, joints and basically anywhere. She doesn't take plaquenil or rapamune anymore. She has been lately on Everolimus 2.5mg BID as needed as per last note from Dr. Blake in 02/2018, but patient says she takes only daily as needed. Patient reports severe vomiting for at least one week and could not tolerate anything not even liquid, accompanied with subjective fevers, chills, and weakness. She has watery diarrhea with some "blood spots". She says she was taking Everolimus until 3 days ago. When I asked patient if Dr. Hayden syed about her abdominal complaints, she says "of course, but he doesn't do anything". ALLERGIES: Please see below. HOME MEDICATIONS: Please see below. PAST MEDICAL HISTORY: SLE chronic diarrhea Sinus node dysfunction s/p pacemaker Chronic pain Anxiety disorder PAST SURGICAL HISTORY: Multiple laparoscopic surgeries from adhesions per patient Hysterectomy FAMILY HISTORY: sister has lupus SOCIAL HISTORY: , lives with Has one daughter REVIEW OF SYSTEMS: Constitutional: +fever, and + weight loss, but there is not documented fevers since admission. Eyes: Denies acute vision changes, eye pain, +dry eyes, no red eyes. ENT: Denies hearing changes, dysphagia, sore throat, runny nose, dry mouth. Cardiac: Denies chest pain, edema or orthopnea. +palpitations Respiratory: Denies dyspnea, cough or wheeze. Gastroenterology: +abdominal pain, nausea and vomiting. +diarrhea Genitourinary: Denies dysuria or hematuria. +dark urine Neurologic: Denies seizures, blackout, numbness or focal weakness. Psychiatric: No depression, denies confusion. Endocrine: Denies polyuria or polydipsia. Hematologic: Denies blood clots or easy bleeding. Skin: no rash. Musculoskeletal: +joint pain PHYSICAL EXAMINATION: VITAL SIGNS: Please see below. GENERAL: The patient was lying in bed without acute distress. HEENT: Normocephalic, atraumatic. Extraocular movements intact. No sinus tenderness. No oral ulcers. NECK: Supple without lymph node. CHEST: Clear and good breath sounds equally. No wheezing. No rhonchi. HEART: S1, S2. Regular rate and rhythm. ABDOMEN: Soft, diffuse tenderness especially left lower quadrant. EXTREMITIES: No clubbing, cyanosis or edema. NEUROLOGIC: Patient is alert and oriented x3. No gross focal deficit. No sensory deficit. PSYCHOSOCIAL: Patient is in a good mood. No signs of depression. INTEGUMENT: Moist mucous membranes. Good skin turgor, intact. No visible active rash. No alopecia. MUSCULOSKELETAL: Hands: There is mild swelling and flexion contraction right 5th PIP, with multiple Heberden's and Corinne's nodes. Wrist: There is full range of motion with no tender points or instability in both wrists. Elbows: Full range of motion no synovitis and no pain on extension in both elbows. Shoulders: Full range of motion without the discomfort including abduction and internal rotation in both shoulders. Knees: There is no tenderness to palpation along the joint line in both knees with full range of motion and no effusion or palpable synovitis. Hips: There is pain in the groin and back with internal or external rotation, but range of motion is good. Legs: no pain and swelling. Ankles: Full range of motion with no tenderness or swelling in the ankles Feet: no pain and swelling of toes with normal range of motion. Back: no tenderness in the spine and paraspinal muscles, straight leg raise negative. LABORATORY DATA: Please see below. Reviewed laboratory available in [facility]: MAKI negative in 2014 and 2016, with negative all lupus panel including dsDNA, anti-salamanca, SSA, SSB and GLASS FURNACE TENDER antibodies. Positive anti-Gliadin antibodies, negative anti-transglutaminase. CBC is unremarkable besides chronic anemia with Hb 10, MCV <80. UA with no proteinuria. Normal C3 and C4. ESR 47. CRP 1.[address] scan reviewed with Dr. Stovall: enteritis affecting large section of the distal small bowel new comparing with the previous CT scan. ASSESSMENT/PLAN: Patient carries a history of systemic lupus erythematous on Everolimus as needed. The history is not consistent, and the treatment is not specific. She does have acute on chronic abdominal pain with evidence of small bowel inflammation and ascites seen in CT scan. However, she has hypoalbuminemia that can cause bowel wall edema and ascites seen on CT scan. She has chronic microcytic anemia with low albumin. It's not sure if her hypoalbuminemia is from malabsorption vs malnutrition vs chronic inflammation vs proteinuria (latest one less likely given negative protein in last UA). In term of her SLE, she has negative MAKI twice with negative serology. Currently with normal complement level, no cytopenias except for microcytic anemia. Only mild elevation of ESR and CRP. No evidence of gross kidney diseases with an unusual immunosuppressive therapy regimen making lupus diagnosis questionable. I still can't find out what the objective lupus features she has besides she carries a history of "lupus on Everolimus". We need to get more history and clarify her lupus history from Dr. Blake. Recommendations: Send all complete panel for autoimmune disease to reassess her condition. Please send with am labs the following testing: MAKI titer and pattern, anti-salamanca, anti-GLASS FURNACE TENDER, anti-SSA, anti-SSB, dsDNA, RF, anti-CCP, urine protein random, urine creatinine random, new UA, Immunoglobulins A, M and G, everolimus level. Enteritis work including anti-transglutaminase antibodies, anti-gliadin antibodies, stool studies including wbc, cultures, FOBT, etc Anemia work up to see if it's from chronic inflammation or iron deficiency. GI evaluation regarding her chronic recurrent enteritis that seems not related to lupus as per Dr. Blake's notes Recommendations discussed with Dr. Camacho and patient. Vital Signs/I&O Vital Signs Date Time Temp Pulse Resp B/P (MAP) Pulse Ox O2 Delivery O2 Flow Rate FiO2 06/29/18 14:15 12 06/29/18 12:00 99.0 77 139/70 (93) 97 06/28/18 00:02 Room Air I&O- Last 24 Hours up to 6 AM 06/29/18 06:00 Intake Total 2520 ml Output Total 725 ml Balance 1795 ml Laboratory Data Labs 24H Laboratory Tests 2 06/28/18 17:25: Nucleated Red Blood Cells % (auto) 0.0 06/28/18 20:25: Bedside Glucose (Misc Panel) 253H 06/28/18 21:32: 06/28/18 23:49: Bedside Glucose (Misc Panel) 229H 06/29/18 05:41: Anion Gap 6L, Glomerular Filtration Rate > 60.0, Estimated Mean Plasma Glucose 223H, Hemoglobin A1c 9.4, Blood Urea Nitrogen 13, Creatinine 0.63, Sodium Level 138, Potassium Level 3.5, Chloride Level 109H, Carbon Dioxide Level 23, Calcium Level 7.7L 06/29/18 12:03: Bedside Glucose (Misc Panel) 196H 06/29/18 12:37: Erythrocyte Sedimentation Rate 47H, C-Reactive Protein, Quantitative 1.49H, Complement C3 162, Complement C4 27 06/29/18 16:57: Bedside Glucose (Misc Panel) 253H CBC/BMP Laboratory Tests 06/28/18 17:25 Red Blood Count 4.50, Mean Corpuscular Volume 75.8 L, Mean Corpuscular Hemoglobin 23.8 L, Mean Corpuscular Hemoglobin Concent 31.4 L, Red Cell Dis tribution Width 14.5 06/29/18 05:41 Calcium Level 7.7 L Microbiology Microbiology 06/28/18 Gastrointestinal Tract Panel (PCR) - Final, Complete Allergies Coded Allergies: Sulfa Drugs (Unverified Allergy, Severe, THROAT CLOSES, 10/02/15) Sulfa Drugs Cross Reactors (Unverified Allergy, Severe, THROAT CLOSES, 10/02/15) Penicillins (Unverified Allergy, Intermediate, LIPS SWELL, 10/02/15) Penicillins Cross Reactors (Unverified Allergy, Intermediate, LIPS SWELL, 10/02/15) NUTS (Verified Allergy, Unknown, 01/30/06) Nalbuphine (Verified Allergy, Unknown, 08/19/12) Olives (Verified Allergy, Unknown, 01/30/06) [place] (Verified Allergy, Unknown, 08/19/12) Latex (Verified Adverse Reaction, Intermediate, LATEX SENSITIVITY, 10/02/15) Promethazine (Unverified Adverse Reaction, Intermediate, TACHY, 10/02/15) Colchicine (Unverified Adverse Reaction, Mild, NAUSEA, 10/02/15) Home Medications Scheduled (Restasis) 0.05 % Emu, 1 DROP OU BID, (Reported) Erythromycin Ethylsuccinate (Eryped 400) 400 Mg/5 Ml Agnela, 400 MG PO DAILY, (Reported) Everolimus (Afinitor) 5 Mg Tab, 2.5 MG PO BID, (Reported) Metoclopramide HCl (Metoclopramide HCl) 10 Mg Tab, 10 MG PO AC, (Reported) PATIENT USES ODT FORM OF METOCLOPRAMIDE Prednisone (Prednisone) 5 Mg Josh, 5 MG PO DAILY, (Reported) Propranolol HCl (Propranolol HCl ER) 60 Mg Cap, 60 MG PO DAILY, (Reported) [Liqui Cannibis] , 2 ML PB TID, (Reported) Scheduled PRN (Voltaren) 1 % Gel, 1 APLCT TOP QID PRN for PAIN for 30 Days, #100 (Reported) apply to affected area(s) (Oxycodone Hydrochloride) 5 Mg/5 Ml Dee Dee, 5 ML PO Q6H PRN for PAIN, (Reported) Albuterol Sulfate (Proair Hfa) 108 Mcg/Act Aer, 2 PUFF INH Q4-6HP PRN for SHORTNESS OF BREATH, (Reported) Diazepam (Diazepam Intensol) 5 Mg/Ml Con, 1 ML PO BIDP PRN for ANXIETY, (Reported) Fluticasone Propionate (Fluticasone Propionate) 50 Mcg/Act Spr, 1 SPRAY NA BID PRN for ALLERGIES, (Reported) Oxycodone HCl (Oxycontin) 30 Mg Tab, 30 MG PO TID PRN for PAIN, (Reported) Prochlorperazine (Prochlorperazine Maleate) 5 Mg Tab, 5 MG PO TID PRN for NAUSEA, (Reported) Miscellaneous Medications [Patient Comments] , (Reported) FAMILY MEMBER PRESENT IN THE ROOM STATES KM HAS NOT TAKEN ANY MEDICATIONS FOR AT LEAST 3 DAYS EXCEPT FOR THE CANNIBIS BECAUSE SHE HAS BEEN VOMITING JOSEPH KHAN MD Jun 29, 2018 17:46
[2018-06-30] MEDS: ONDANSETRON 4 MG ORAL DISINTEGRATING TAB (Q0162 PER 1MG) PO PRN (01:21)
[2018-06-30] MEDS: HYDROMORPHONE HCL 0.5 MG/ 0.5 ML SYRINGE (J1170 PER 1) IM PRN ×2 (01:22→06:33)
[2018-06-30] MEDS: LORazepam 2 MG TAB PO PRN ×2 (03:19→19:46)
[2018-06-30 06:00] VITALS: BP 115/69
[2018-06-30 06:29] LABS: BASO % 0.2 % (0.0-1.0); EOS % 0.3 % (0.0-3.0); HEMATOCRIT 29.5 % (36.0-47.0); HEMOGLOBIN 9.5 g/dl (12.0-15.5); LYMPH # 2.3 10^3/uL (1.5-4.5); LYMPH % 39.2 % (24.0-44.0); MEAN CORPUSCULAR HEMOGLOBIN 24.1 pg (27.0-33.0); MEAN CORPUSCULAR HGB CONC 32.2 g/dl (32.0-36.5); MEAN CORPUSCULAR VOLUME 74.9 fl (80.0-96.0); MONO # 0.6 10^3/uL (0.0-0.8); MONO % 9.9 % (0.0-5.0); NEUTROPHILS % 50.2 % (36.0-66.0); PLATELET COUNT, AUTOMATED 178 10^3/uL (150-450); RED BLOOD COUNT 3.94 10^6/uL (4.00-5.40)
[2018-06-30 07:05] LABS: FERRITIN 92 NG/ML (8-252); IMMUNOGLOBULIN G 1080 MG/DL (681-1648); IMMUNOGLOBULIN M 84.5 MG/DL (40-230); IRON (FE) 63 UG/DL (50-170); RHEUMATOID FACTOR QUANT < 10.0 IU/ML (<15.0); TOTAL IRON BINDING CAPACITY 263 UG/DL (250-450)
[2018-06-30] MEDS: HumaLOG INSULIN (NovoLOG) PER UNIT SC SCH ×4 (09:22→22:02)
[2018-06-30] MEDS: LEVEMIR (INSULIN DETEMIR) 1 UNITS/0.01ML SC SCH (09:23)
[2018-06-30] MEDS: LANSOPRAZOLE SUSPENSION 30 MG/10 ML ORAL SYRINGE (FIRST-LANSOPRAZOLE) PO SCH (09:23)
[2018-06-30] MEDS: BUDESONIDE EC 3 MG CAP (ENTOCORT EC) PO SCH (09:26)
[2018-06-30] MEDS: methylPREDNISolone INJ 125 MG/2 ML VIAL (J2930) IV SCH ×2 (12:00→17:40)
[2018-06-30 14:00] VITALS: BP 114/63
[2018-06-30 14:34] LABS: ANTI DOUBLE STRAND-DNA AB 1 IU/mL (0-9)
[2018-06-30 15:23] LABS: TOTAL PROTEIN,RANDOM URINE 18.6 MG/DL (0.0-12.0)
[2018-06-30 15:25] LABS: APPEARANCE, URINE CLEAR (CLEAR); BACTERIA, URINE AUTO NEGATIVE (NEGATIVE); BILIRUBIN, URINE AUTO NEGATIVE (NEGATIVE); BLOOD, URINE BLOOD NEGATIVE (NEGATIVE); COLOR, URINE YELLOW (YELLOW); GLUCOSE, URINE (UA) AUTO NEGATIVE (NEGATIVE); KETONE, URINE AUTO NEGATIVE (NEGATIVE); LEUKOCYTE ESTERASE, URINE AUTO 1+ (NEGATIVE); MUCUS, URINE SMALL (NEGATIVE); NITRITE, URINE AUTO NEGATIVE (NEGATIVE); PROTEIN, URINE AUTO NEGATIVE (NEGATIVE); RBC, URINE AUTO 1 /HPF (0-3); SPECIFIC GRAVITY URINE AUTO 1.013 (1.002-1.035); SQUAMOUS EPITHELIAL CELL UR AU 1 /HPF (0-6); WBC, URINE AUTO 6 /HPF (0-3)
[2018-06-30] MEDS ORDERED: LIDOCAINE 1% MDV 20ML VIAL As Ordered ONE (16:20)
[2018-06-30] MEDS ORDERED: SODIUM CHLORIDE 0.9% INJ 10 ML SYR IV PRN (17:15)
[2018-06-30] MEDS ORDERED: LORazepam 2 MG/ML VIAL (J2060) IV PRN (17:30)
[2018-06-30] MEDS: NS 1,000 ML IV SCH (17:36)
[2018-06-30] MEDS: HYDROMORPHONE HCL 0.5 MG/ 0.5 ML SYRINGE (J1170 PER 1) IV PRN (17:38)
[2018-06-30] MEDS: SODIUM CHLORIDE 0.9% INJ 10 ML SYR IV SCH (17:59)
--- NOTE | 2018-06-30 18:13 | IPNPDOC ---
Subjective Date Seen The patient was seen on 06/30/18. Subjective Chief Complaint/HPI Patient still has a lot of pain. The pain medicine does help some for some time. Would like to have her ativan closer with her pain medication when she goes to sleep. Has been trying sips of clear liquid but very painful. Lost IV access overnight. ENT: Denies: Head Aches Pulmonary: Denies: Dyspnea, Cough Objective Physical Examination General Exam: Positive: Alert, Cooperative, Mild Distress (from the abdominal pain) Eye Exam: Positive: PERRLA; Negative: Sclera icteric ENT Exam: Positive: Atraumatic; Negative: Mucous membr. moist/pink (mucous membranes are dry but not cracked or furrowed) Neck Exam: Positive: Supple Chest Exam: Positive: Clear to auscultation; Negative: Rales, Rhonchi Heart Exam: Positive: Rate Normal, Normal S1, Normal S2 Abdomen Exam: Positive: BS Hypoactive, Tenderness (Diffuse), Other (mildly distended. Pain is more diffuse and jorge-umbillical); Negative: Mass Extremity Exam: Negative: Edema Psych Exam: Positive: Mental status NL, Memory Intact, Oriented x 3 Assessment /Plan Problems (1) Enteritis Status: Acute Problem Text: 06/30 Per Rheumatology, labs pending. Will call and discuss case with GI, Dr. Beltran, who she was referred outpatient. Lost IV access so will put in midline. 06/29: I have added Entocort to her regimen to try to deliver steroid directly to the inflamed bowel. I have consulted Dr. Phillip to evaluate whether this is lupus related enteritis. If that does not seem promising then, I will look at consulting GI tomorrow (no coverage today). I changed the morphine from 2mg Q3h to IM hydromorphone 0.5mg q3h prn for a slight increase in intensity of the regimen, but also an attempt to make the pain control last longer. 06/28: CT showed some evidence of enteritis. No other signs of infection, no fever, WBC normal. Patient noted pain is still intense but better enough to try some sips of water. On IV zofran if needed and IV pantoprazole. Pain being controlled with IV morphine as patient cannot tolerate home oral pain medications. Differential includes gastroparesis, lupus enteritis, diabetes, other infectious cause. 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 (2) SLE (systemic lupus erythematosus related syndrome) Status: Chronic Problem Text: 06/30 Putting in midline today. Will give IV methylpednisolone when that is placed. Labs pending. 06/29 Currently on IV methylprednsiolone at this time. Unfortunately, she has lost IV access. If it can't be reestablished in the next couple shifts, then will consider a mid-line tomorrow. Holding home medication, including Afinitor, at this time. (3) Type 2 diabetes mellitus Onset Date: ~ 07/17/2015 Status: Chronic Problem Text: 06/30 Continue to monitor glucose. 06/29 Will add 10 units of basal insulin to her regimen starting tomorrow as she will only get worse while on steroids. Plan/VTE VTE Prophylaxis Ordered?: Yes (David and derrell) Plan Family Medicine Attending Note: I was present on site to supervise Dale rPice D.O. (OGME-3). We discussed the history and exam. I confirmed the henning elements during my [id number] encounter with the patient. We conferred on the assessment and plan; I agree with the note as documented. Ms. Jorgensen is complaining that her pain is inadequately controlled, but nursing staff also reports that she is refusing pain medication because she is worried that they will constipate her more. She did have a midline placed today, and after that she received IV medication. I had a chance to speak to Dr. Sales, who she was supposed to see in the outpatient setting tomorrow. He reviewed the chart and images with me and has agreed to consult on her tomorrow. Appreciate his input. 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) VS, I&O, 24H, Fishbone Vital Signs/I&O Vital Signs Date Time Temp Pulse Resp B/P (MAP) Pulse Ox O2 Delivery O2 Flow Rate FiO2 06/30/18 17:38 16 06/30/18 14:00 98.0 63 114/63 (80) 97 06/28/18 00:02 Room Air I&O- Last 24 Hours up to 6 AM 06/30/18 06:00 Intake Total 950 ml Output Total 1450 ml Balance -500 ml Laboratory Data 24H LABS Laboratory Tests 2 06/29/18 21:13: Bedside Glucose (Misc Panel) 217H 06/30/18 05:49: Immature Granulocyte % (Auto) 0.2, White Blood Count 6.0, Red Blood Count 3.94L, Hemoglobin 9.5L, Hematocrit 29.5L, Mean Corpuscular Volume 74.9L, Mean Corpuscular Hemoglobin 24.1L, Mean Corpuscular Hemoglobin Concent 32.2, Red Cell Distribution Width 14.5, Platelet Count 178, Neutrophils (%) (Auto) 50.2, Lymphocytes (%) (Auto) 39.2, Monocytes (%) (Auto) 9.9H, Eosinophils (%) (Auto) 0.3, Basophils (%) (Auto) 0.2, Neutrophils # (Auto) 3.0, Lymphocytes # (Auto) 2.3, Monocytes # (Auto) 0.6, Eosinophils # (Auto) 0.0, Basophils # (Auto) 0.0, Reticulocyte # (auto) 28.4, Nucleated Red Blood Cells % (auto) 0.0, Percent Reticulocyte Count 0.7, Reticulocyte Hemoglobin Equivalent 28.6, Iron Level 63, Total Iron Binding Capacity 263, Transferrin % Saturation 24.0, Ferritin 92, C- Reactive Protein, Quantitative 1.25H, Immunoglobulin G 1080, Immunoglobulin A 316.0, Immunoglobulin M 84.5, Rheumatoid Factor < 10.0 06/30/18 05:55: Bedside Glucose (Misc Panel) 130H 06/30/18 08:16: Bedside Glucose (Misc Panel) 163H 06/30/18 11:50: Bedside Glucose (Misc Panel) 121H 06/30/18 14:55: Urine Appearance CLEAR, Urine Color YELLOW, Urine pH 7.0, Urine Specific [place] 1.013, Urine Protein NEGATIVE, Urine Glucose (UA) NEGATIVE, Urine Ketones NEGATIVE, Urine Urobilinogen 4.0H, Urine Bilirubin NEGATIVE, Urine Leukocyte Esterase 1+H, Urine Blood NEGATIVE, Urine Nitrite NEGATIVE, Urine WBC (Auto) 6H, Urine RBC (Auto) 1, Urine Hyaline Casts (Auto) 0, Urine Bacteria (Auto) NEGATIVE, Urine Squamous Epithelial Cells 1, Urine Mucus (Auto) SMALL, Urine Sperm (Auto) , Urine Random Creatinine 103.0, Urine Random Total Protein 18.6H 06/30/18 17:44: Bedside Glucose (Misc Panel) 127H CBC/BMP Laboratory Tests 06/30/18 05:49 Red Blood Count 3.94 L, Mean Corpuscular Volume 74.9 L, Mean Corpuscular Hemoglobin 24.1 L, Mean Corpuscular Hemoglobin Concent 32.2, Red Cell Distribution Width 14.5, Neutrophils (%) (Auto) 50.2, Lymphocytes (%) (Auto) 39.2, Monocytes (%) (Auto) 9.9 H, Eosinophils (%) (Auto) 0.3, Basophils (%) (Auto) 0.2, Neutrophils # (Auto) 3.0, Lymphocytes # (Auto) 2.3, Monocytes # (Auto) 0.6, Eosinophils # (Auto) 0.0, Basophils # (Auto) 0.0 Microbiology Microbiology 06/30/18 Stool Occult Blood (KINJAL) - Final, Complete 06/28/18 Gastrointestinal Tract Panel (PCR) - Final, Complete GME ATTESTATION GME ATTESTATION My faculty preceptor for this patient encounter was physically present during the encounter and was fully available. All aspects of the patient interview, examination, medical decision making process, and medical care plan development were reviewed and approved by the faculty preceptor. The faculty preceptor is aware and concurs with the plan as stated in the body of this note and will attest to such by his/her cosignature. DALE PRICE DO Jun 30, 2018 6:12 pm Nate Camacho MD Jun 30, 2018 8:42 pm
[2018-06-30 22:00] VITALS: BP 132/60
[2018-07-01] MEDS: ONDANSETRON 4 MG ORAL DISINTEGRATING TAB (Q0162 PER 1MG) PO PRN ×3 (01:13→19:33)
[2018-07-01] MEDS: NS 1,000 ML IV SCH ×3 (01:13→17:59)
[2018-07-01] MEDS: HYDROMORPHONE HCL 0.5 MG/ 0.5 ML SYRINGE (J1170 PER 1) IV PRN ×6 (01:14→22:38)
[2018-07-01] MEDS: LORazepam 2 MG TAB PO PRN ×3 (02:44→20:30)
[2018-07-01] MEDS: SODIUM CHLORIDE 0.9% INJ 10 ML SYR IV SCH ×2 (05:43→17:52)
[2018-07-01 06:00] VITALS: BP 137/77
[2018-07-01] MEDS: LEVEMIR (INSULIN DETEMIR) 1 UNITS/0.01ML SC SCH (08:37)
[2018-07-01] MEDS: LANSOPRAZOLE SUSPENSION 30 MG/10 ML ORAL SYRINGE (FIRST-LANSOPRAZOLE) PO SCH (08:37)
[2018-07-01] MEDS: HumaLOG INSULIN (NovoLOG) PER UNIT SC SCH ×4 (08:37→21:00)
[2018-07-01] MEDS: BUDESONIDE EC 3 MG CAP (ENTOCORT EC) PO SCH (08:38)
--- NOTE | 2018-07-01 09:19 | REP ---
Procedure: Mid line insertion with Site-Rite The procedure was performed under the direct supervision of Dr. Stovall. The risks and benefits of the procedure were explained to the patient and informed consent was obtained. The right basilic vein was localized using ultrasound guidance. The skin was prepped and draped in a sterile fashion. 1% lidocaine was used as a local anesthetic. Using ultrasound guidance the basilic vein was cannulated and a 0.018 guidewire was inserted. The needle was removed and a 4.5 Danish dilator and peel-away sheath was inserted over the guide wire. A 4.5 Danish single lumen catheter was cut to length of 16.5 cm. The dilator was removed and the catheter was inserted over the guide wire. The peel-away sheath was removed and the catheter was flushed with heparinized saline as per Hospital protocol. The catheter was affixed to the skin and a sterile dressing was applied. The patient tolerated the procedure well and there were no immediate complications. Reviewed by JEMMA Rodriguez 06/30/2018 05:04 P Electronically Signed by Carloz Stovall MD 07/01/2018 09:11 A
[2018-07-01 10:34] LABS: EOS % 0.1 % (0.0-3.0); HEMATOCRIT 30.3 % (36.0-47.0); HEMOGLOBIN 9.6 g/dl (12.0-15.5); LYMPH # 1.6 10^3/uL (1.5-4.5); LYMPH % 23.1 % (24.0-44.0); MEAN CORPUSCULAR HEMOGLOBIN 23.5 pg (27.0-33.0); MEAN CORPUSCULAR HGB CONC 31.7 g/dl (32.0-36.5); MEAN CORPUSCULAR VOLUME 74.3 fl (80.0-96.0); MONO # 0.3 10^3/uL (0.0-0.8); MONO % 5.1 % (0.0-5.0); NEUTROPHILS # 4.8 10^3/uL (1.8-7.7); NEUTROPHILS % 71.3 % (36.0-66.0); PLATELET COUNT, AUTOMATED 198 10^3/uL (150-450); RED BLOOD COUNT 4.08 10^6/uL (4.00-5.40); WHITE BLOOD COUNT 6.7 10^3/uL (4.0-10.0)
[2018-07-01 10:39] LABS: ALBUMIN 2.6 GM/DL (3.2-5.2); ALT/SGPT 49 U/L (12-78); BILIRUBIN,TOTAL 0.9 MG/DL (0.2-1.0); BLOOD UREA NITROGEN 11 MG/DL (7-18); CALCIUM LEVEL 7.9 MG/DL (8.5-10.1); CARBON DIOXIDE LEVEL 24 MEQ/L (21-32); CHLORIDE LEVEL 107 MEQ/L (98-107); GLOMERULAR FILTRATION RATE > 60.0 (>51); GLUCOSE, FASTING 172 MG/DL (70-100); POTASSIUM SERUM 3.4 MEQ/L (3.5-5.1); SODIUM LEVEL 139 MEQ/L (136-145); TOTAL PROTEIN 6.5 GM/DL (6.4-8.2)
[2018-07-01] MEDS ORDERED: ISOVUE-370 76% 100ML VIAL (Q9967) As Ordered ONE (12:35)
[2018-07-01 14:00] VITALS: BP 149/65
--- NOTE | 2018-07-01 18:59 | REP ---
CT ANGIOGRAM ABDOMINAL AORTA AND BILATERAL LOWER EXTREMITIES: CT angiogram of the abdominal aorta and bilateral lower extremities were performed following intravenous administration of 100 mL of Isovue-370. Sagittal, coronal and 3D reconstructions images are performed. Comparison is made with prior CT of 06/27/2018. Abdominal aorta is normal in caliber with no aneurysm. I do not see significant atherosclerotic plaquing. Celiac axis demonstrates focal narrowing at the origin with a hooked shape of the celiac axis as seen on sagittal reconstruction images. The appearance is consistent with median arcuate ligament syndrome with the narrowing caused by compression of the celiac axis by the medial arcuate ligament. A degree of stenosis appears to be in the range of about 80-90%. There is mild post-stenotic dilatation of the celiac artery. There appears to be a prominent collateral gastroduodenal artery assisting supply of the hepatic artery. Superior and inferior mesenteric arteries are widely patent. Renal arteries are widely patent. Common iliac, external iliac, internal iliac and common femoral arteries are widely patent with no stenosis. Bilateral lower extremity arterial systems are also widely patent without significant stenosis. There is three vessel runoff into both feet. There appears to be diffuse fatty infiltration of the liver. There is no hydronephrosis of the kidneys. I see no adenopathy or free air. Previously noted diffuse distal small bowel wall thickening has improved with mild residual thickening present. Upper abdominal ascites has also improved, with a very small amount of free fluid in the pelvis now seen. Sigmoid diverticulosis is noted. The appendix is normal. Small left effusion is seen with adjacent left bas atelectasis/infiltrate. There is a tiny right effusion. 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 The hook like narrowing is apparent on sagittal reconstruction images, characteristic of this syndrome. There is no other evidence of arterial narrowing as discussed above. There is a prominent gastroduodenal collateral artery helping to provide flow for the hepatic artery. Previously noted distal small bowel wall thickening has improved. Ascites has improved with mild free fluid in the pelvis. Small left effusion with adjacent left basilar atelectasis/infiltrate. Tiny right effusion. Electronically Signed by Carloz Stovall MD 07/02/2018 03:57 P
--- NOTE | 2018-07-01 20:11 | CR ---
DATE OF CONSULTATION: 07/01/2018 STATUS OF PATIENT: Inpatient. REQUESTING PHYSICIAN: Dr. Nate Camacho REASON FOR CONSULTATION: Abdominal pain, abnormal CT scan. HISTORY OF PRESENT ILLNESS: Taylor Jorgensen Is a 58-year-old female with a history of systemic lupus erythematous, diabetes. she also has a history of chronic abdominal pain with diarrhea and sometimes constipation. She presents with a 3-day history of increased abdominal pain, nausea and vomiting. She denies any fevers or chills. On presentation, her CT scan showed some abnormal ileum c/w ileitis. Consultation was placed to evaluate this abnormal CT scan and her symptoms. PAST MEDICAL HISTORY: 1. Systemic lupus erythematous on CellCept. 2. Gastroparesis. 3. Osteonecrosis of the hips. 4. Coronary artery spasm. 5. Chronic abdominal pain. PAST SURGICAL HISTORY: Hysterectomy, ovarian cyst, cholecystectomy, pacemaker placement. SOCIAL HISTORY: Negative for tobacco. Negative for alcohol. ALLERGIES: Are to SULFA, PENICILLIN, LATEX, PROMETHAZINE, COLCHICINE. MEDICATIONS: At home are: - erythromycin - everolimus - metoclopramide - prednisone - propranolol - as needed diazepam - as needed oxycodone FAMILY HISTORY: Is negative for colorectal carcinoma, inflammatory bowel disease. PHYSICAL EXAMINATION: Temperature 98.7, pulse is 60, respiratory rate 18, blood pressure 149/65, pulse oximetry 95% room air. General: She is a awake and alert and is oriented times three. She is in mild abdominal distress. She is nontoxic in appearance. Head, eyes, ears, nose and throat: Grossly without abnormality. There is no oral thrush. No jaundice. Mucosa are pink. Neck is supple. No lymphadenopathy, thyromegaly. Chest is clear bilaterally. Heart is regular rate and rhythm, S1, S2. Abdomen is positive bowel sounds throughout. Soft abdomen, no masses palpable. She is very tender in the left lower quadrant and lower abdomen. There is no rebound tenderness. Her abdominal exam reveals no fluid. Extremities are negative for edema. Rectal examination is deferred as per patient. Hemoglobin 9.6, hematocrit 30.3, MCV 74.3, platelet count is 198, sodium 139, potassium 3.4, BUN 11, creatinine 0.6, CRP 1.25 / 0.90, albumin 2.6. IMAGING STUDIES: 06/27/2018 CT abdomen and pelvis with IV contrast, impression: 1. Findings highly suggestive of distal small bowel, inflammatory or infectious enteritis with mesenteric edema and small volume ascites. No obstruction or perforation. 2. Probable hepatic pseudoptosis. 3. Normal-appearing appendix. IMPRESSION: 1. Patient with chronic abdominal pain presents with acute worsening of her discomfort over the past 2-3 days. This is associated with nausea, vomiting and diarrhea. She has an abnormal CT scan and a physical examination with pain out of proportion to her examination. I have reviewed several of her previous CT scans over the course of the past few years and this CT finding appears to be new. Differential diagnoses here includes infectious (incl viral), inflammatory and with her history of lupus also includes ischemic / vasculitis. RECOMMENDATIONS: 1. CT angio of her mesenteric vessels to determine vasculitis / ischemia, especially in view of findings on examination. 2. Endoscopic evaluation of the small bowel / terminal ileum should also be considered. However, I will wait until her abdominal pain is somewhat improved. 3. I think it is reasonable to try budesonide / Entocort. 4. We are awaiting viral studies at this time. DISCUSSION: I have reviewed several of her previous CT scans which never in the past have shown any abnormalities of her ileum. On one of the CT scans I see that she may have had some sigmoid colitis that was read as such. That also is not a consistent finding. From an inflammatory bowel disease perspective, it would be highly unusual to have sudden new findings such as this and the degree of abdominal pain is also unusual for inflammatory bowel disease. At this time we are awaiting CT angiography and decide on further management. DONELL
--- NOTE | 2018-07-01 21:35 | IPNPDOC ---
Subjective Date Seen The patient was seen on 07/01/18. Subjective Chief Complaint/HPI Patient still has a lot of pain. Pain medication does provide some relief. Not drinking much oral intake. Constitutional: Denies: Chills, Fever Gastrointestinal: Reports: Abdominal Pain Objective Physical Examination General Exam: Positive: Alert, Cooperative, Mild Distress (from the abdominal pain) Eye Exam: Positive: PERRLA; Negative: Sclera icteric ENT Exam: Positive: Atraumatic; Negative: Mucous membr. moist/pink (mucous membranes are dry but not cracked or furrowed) Neck Exam: Positive: Supple Chest Exam: Positive: Clear to auscultation; Negative: Rales, Rhonchi Heart Exam: Positive: Rate Normal, Normal S1, Normal S2 Abdomen Exam: Positive: BS Hypoactive, Tenderness (Diffuse), Other (mildly distended. Pain is more diffuse and jogre-umbillical); Negative: Mass Extremity Exam: Negative: Edema Psych Exam: Positive: Mental status NL, Memory Intact, Oriented x 3 Assessment /Plan Problems (1) Enteritis Status: Acute Problem Text: 07/01 Labs pending. GI consulted, appreciate Dr. Beltran's assistance. Continue IV steroids and IV pain medication. 06/30 Per Rheumatology, labs pending. Will call and discuss case with GI, Dr. Beltran, who she was referred outpatient. Lost IV access so will put in midline. 06/29: I have added Entocort to her regimen to try to deliver steroid directly to the inflamed bowel. I have consulted Dr. Phillip to evaluate whether this is lupus related enteritis. If that does not seem promising then, I will look at consulting GI tomorrow (no coverage today). I changed the morphine from 2mg Q3h to IM hydromorphone 0.5mg q3h prn for a slight increase in intensity of the regimen, but also an attempt to make the pain control last longer. 06/28: CT showed some evidence of enteritis. No other signs of infection, no fever, WBC normal. Patient noted pain is still intense but better enough to try some sips of water. On IV zofran if needed and IV pantoprazole. Pain being controlled with IV morphine as patient cannot tolerate home oral pain medications. Differential includes gastroparesis, lupus enteritis, diabetes, other infectious cause. 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 (2) SLE (systemic lupus erythematosus related syndrome) Status: Chronic Problem Text: 06/30 Putting in midline today. Will give IV methylpednisolone when that is placed. Labs pending. 06/29 Currently on IV methylprednsiolone at this time. Unfortunately, she has lost IV access. If it can't be reestablished in the next couple shifts, then will consider a mid-line tomorrow. Holding home medication, including Afinitor, at this time. (3) Type 2 diabetes mellitus Onset Date: ~ 07/17/2015 Status: Chronic Problem Text: 06/30 Continue to monitor glucose. 06/29 Will add 10 units of basal insulin to her regimen starting tomorrow as she will only get worse while on steroids. Plan/VTE VTE Prophylaxis Ordered?: Yes (Teds and squentials) VS, I&O, 24H, Fishbone Vital Signs/I&O Vital Signs Date Time Temp Pulse Resp B/P (MAP) Pulse Ox O2 Delivery O2 Flow Rate FiO2 07/01/18 19:43 18 07/01/18 14:00 98.7 60 149/65 (93) 07/01/18 12:47 95 06/28/18 00:02 Room Air I&O- Last 24 Hours up to 6 AM 07/01/18 06:00 Intake Total 2100 ml Output Total 500 ml Balance 1600 ml Laboratory Data 24H LABS Laboratory Tests 2 06/30/18 21:36: Bedside Glucose (Misc Panel) 151H 07/01/18 05:43: Anion Gap 8, Glomerular Filtration Rate > 60.0, Blood Urea Nitrogen 11, Creatinine 0.60, Sodium Level 139, Potassium Level 3.4L, Chloride Level 107, Carbon Dioxide Level 24, Calcium Level 7.9L, Aspartate Amino Transf (AST/SGOT) 54H, Alanine Aminotransferase (ALT/SGPT) 49, Alkaline Phosphatase 71, Total Bilirubin 0.9, Total Protein 6.5, Albumin 2.6L, C-Reactive Protein, Quantitative 0.90H, Albumin/Globulin Ratio 0.67L 07/01/18 06:00: Immature Granulocyte % (Auto) 0.4, White Blood Count 6.7, Red Blood Count 4.08, Hemoglobin 9.6L, Hematocrit 30.3L, Mean Corpuscular Volume 74.3L, Mean Corpuscular Hemoglobin 23.5L, Mean Corpuscular Hemoglobin Concent 31.7L, Red Cell Distribution Width 14.6H, Platelet Count 198, Neutrophils (%) (Auto) 71.3H, Lymphocytes (%) (Auto) 23.1L, Monocytes (%) (Auto) 5.1H, Eosinophils (%) (Auto) 0.1, Basophils (%) (Auto) 0.0, Neutrophils # (Auto) 4.8, Lymphocytes # (Auto) 1.6, Monocytes # (Auto) 0.3, Eosinophils # (Auto) 0.0, Basophils # (Auto) 0.0, Nucleated Red Blood Cells % (auto) 0.0 07/01/18 06:09: Bedside Glucose (Misc Panel) 151H 07/01/18 11:24: Bedside Glucose (Misc Panel) 91 07/01/18 16:51: Bedside Glucose (Misc Panel) 109H CBC/BMP Laboratory Tests 07/01/18 05:43 Calcium Level 7.9 L, Aspartate Amino Transf (AST/SGOT) 54 H, Alanine Aminotransferase (ALT/SGPT) 49, Alkaline Phosphatase 71, Total Bilirubin 0.9, Total Protein 6.5, Albumin 2.6 L 07/01/18 06:00 Red Blood Count 4.08, Mean Corpuscular Volume 74.3 L, Mean Corpuscular Hemoglobin 23.5 L, Mean Corpuscular Hemoglobin Concent 31.7 L, Red Cell Distribution Width 14.6 H, Neutrophils (%) (Auto) 71.3 H, Lymphocytes (%) (Auto) 23.1 L, Monocytes (%) (Auto) 5.1 H, Eosinophils (%) (Auto) 0.1, Basophils (%) (Auto) 0.0, Neutrophils # (Auto) 4.8, Lymphocytes # (Auto) 1.6, Monocytes # (Auto) 0.3, Eosinophils # (Auto) 0.0, Basophils # (Auto) 0.0 Microbiology Microbiology 06/30/18 Stool Occult Blood (KINJAL) - Final, Complete 06/28/18 Gastrointestinal Tract Panel (PCR) - Final, Complete GME ATTESTATION ATTENDING NOTE Family Medicine Attending Note: I was present on site to supervise Dale Price D.O. (OGME-3). We discussed the history and exam. I confirmed the henning elements during my [id number] encounter with the patient. We conferred on the assessment and plan; I agree with the note as documented. Dr. Sales will see her today; appreciate his input. He has ordered CT angiogram of her mesentery. We'll continue to monitor. 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
[2018-07-01 22:00] VITALS: BP 96/50
[2018-07-02 00:07] LABS: ANA (HEP2) Negative (.); RNP ANTIBODY 0.2 AI (0.0-0.9); SMITHS ANTIBODY < 0.2 AI (0.0-0.9); SSA SJOGRENS A <0.2 AI (0.0-0.9); SSB SJOGRENS B <0.2 AI (0.0-0.9); TISSUE TRANSGLUTAMINASE IgA <2 U/mL (0-3); TISSUE TRANSGLUTAMINASE IgG <2 U/mL (0-5)
[2018-07-02] MEDS ORDERED: PREPARATION H SUPP (HEMORRHOID) PR PRN (01:15)
[2018-07-02] MEDS: NS 1,000 ML IV SCH (01:34)
[2018-07-02] MEDS: HYDROMORPHONE HCL 0.5 MG/ 0.5 ML SYRINGE (J1170 PER 1) IV PRN ×4 (01:34→21:11)
[2018-07-02] MEDS: ONDANSETRON 4 MG ORAL DISINTEGRATING TAB (Q0162 PER 1MG) PO PRN ×3 (01:44→21:29)
[2018-07-02] MEDS: LORazepam 2 MG TAB PO PRN ×3 (02:06→22:38)
[2018-07-02] MEDS: SODIUM CHLORIDE 0.9% INJ 10 ML SYR IV SCH ×2 (05:42→17:28)
[2018-07-02 06:00] VITALS: BP 129/68
[2018-07-02 06:45] LABS: HEMATOCRIT 28.5 % (36.0-47.0); MEAN CORPUSCULAR HEMOGLOBIN 23.8 pg (27.0-33.0); MEAN CORPUSCULAR HGB CONC 31.6 g/dl (32.0-36.5); MEAN CORPUSCULAR VOLUME 75.4 fl (80.0-96.0); PLATELET COUNT, AUTOMATED 212 10^3/uL (150-450); RED BLOOD COUNT 3.78 10^6/uL (4.00-5.40); WHITE BLOOD COUNT 7.6 10^3/uL (4.0-10.0)
[2018-07-02 07:41] LABS: BLOOD UREA NITROGEN 6 MG/DL (7-18); C REACTIVE PROTEIN QUANTITATIV 0.49 MG/DL (0.00-0.30); CALCIUM LEVEL 7.3 MG/DL (8.5-10.1); CARBON DIOXIDE LEVEL 22 MEQ/L (21-32); CHLORIDE LEVEL 109 MEQ/L (98-107); CREATININE FOR GFR 0.72 MG/DL (0.55-1.30); GLOMERULAR FILTRATION RATE > 60.0 (>51); GLUCOSE, FASTING 133 MG/DL (70-100); POTASSIUM SERUM 2.6 MEQ/L (3.5-5.1); SODIUM LEVEL 140 MEQ/L (136-145)
[2018-07-02] MEDS: KCL 10MEQ/100ML SWI (KRUN) 10 MEQ in APPROPRIATE DILUENT 1 EA IV SCH ×4 (08:55→13:00)
[2018-07-02] MEDS: KCL 20MEQ in NS 1000ML 1,000 ML IV SCH ×2 (08:55→19:57)
[2018-07-02] MEDS: BUDESONIDE EC 3 MG CAP (ENTOCORT EC) PO SCH (08:56)
[2018-07-02] MEDS: methylPREDNISolone INJ 125 MG/2 ML VIAL (J2930) IV SCH (08:56)
[2018-07-02] MEDS: LEVEMIR (INSULIN DETEMIR) 1 UNITS/0.01ML SC SCH (08:57)
[2018-07-02] MEDS: HumaLOG INSULIN (NovoLOG) PER UNIT SC SCH ×4 (08:58→21:00)
[2018-07-02 09:48] LABS: MAGNESIUM LEVEL 1.8 MG/DL (1.8-2.4)
[2018-07-02] MEDS ORDERED: POTASSIUM CHLORIDE 10 MEQ SR TABLET PO ONE (10:00)
[2018-07-02] MEDS: LANSOPRAZOLE SUSPENSION 30 MG/10 ML ORAL SYRINGE (FIRST-LANSOPRAZOLE) PO SCH (11:52)
[2018-07-02] MEDS: NYSTATIN 500,000 U/5 ML SUSP UDC SS SCH ×2 (11:52→18:00)
[2018-07-02 14:00] VITALS: BP 138/77
[2018-07-02 16:13] LABS: CYCLIC CITRULLINATED PEPTIDE 11 units (0-19); EVEROLIMUS LEVEL 1.3 ng/mL (3.0-8.0); UNITSIGA FOR GLIADIN IGA 9 units (0-19); UNITSIGG FOR GLIADIN IGG 2 units (0-19)
[2018-07-02 17:54] LABS: BLOOD UREA NITROGEN 4 MG/DL (7-18); CALCIUM LEVEL 8.3 MG/DL (8.5-10.1); CARBON DIOXIDE LEVEL 24 MEQ/L (21-32); CHLORIDE LEVEL 106 MEQ/L (98-107); CREATININE FOR GFR 0.74 MG/DL (0.55-1.30); GLOMERULAR FILTRATION RATE > 60.0 (>51); GLUCOSE, FASTING 187 MG/DL (70-100); POTASSIUM SERUM 4.9 MEQ/L (3.5-5.1); SODIUM LEVEL 137 MEQ/L (136-145)
--- NOTE | 2018-07-02 19:04 | IPNPDOC ---
Subjective Date Seen The patient was seen on 07/02/18. Subjective Chief Complaint/HPI Still has pain, severe. Consistent. Anxious to go home. Has not been drinking much due to pain. Had some lentel soup that friend brought in and vomited it up last night. Pulmonary: Denies: Dyspnea Cardiovascular: Denies: Chest Pain Gastrointestinal: Reports: Abdominal Pain Objective Physical Examination General Exam: Positive: Alert, Cooperative, Mild Distress (from the abdominal pain) Eye Exam: Positive: PERRLA; Negative: Sclera icteric ENT Exam: Positive: Atraumatic; Negative: Mucous membr. moist/pink (mucous membranes are dry but not cracked or furrowed) Neck Exam: Positive: Supple Chest Exam: Positive: Clear to auscultation; Negative: Rales, Rhonchi Heart Exam: Positive: Rate Normal, Normal S1, Normal S2 Abdomen Exam: Positive: BS Hypoactive, Tenderness (Diffuse), Other (mildly di stended. Pain is more diffuse and jorge-umbillical); Negative: Mass Extremity Exam: Negative: Edema Psych Exam: Positive: Mental status NL, Memory Intact, Oriented x 3 Assessment /Plan Problems (1) Median arcuate ligament syndrome Problem Text: Noted on CT scan. May be contributing to pain. (2) Abdominal pain Problem Text: Continue to treat abdominal pain. Dilaudid IV. (3) Hypokalemia Problem Text: K was 2.6 this morning. Added K to IV fluids and gave K runs. recheck at 1700. (4) Enteritis Status: Acute Problem Text: 07/01 Labs pending. GI consulted, appreciate Dr. Beltran's assistance. Continue IV steroids and IV pain medication. 06/30 Per Rheumatology, labs pending. Will call and discuss case with GI, Dr. Beltran, who she was referred outpatient. Lost IV access so will put in midline. 06/29: I have added Entocort to her regimen to try to deliver steroid directly to the inflamed bowel. I have consulted Dr. Phillip to evaluate whether this is lupus related enteritis. If that does not seem promising then, I will look at consulting GI tomorrow (no coverage today). I changed the morphine from 2mg Q3h to IM hydromorphone 0.5mg q3h prn for a slight increase in intensity of the regimen, but also an attempt to make the pain control last longer. 06/28: CT showed some evidence of enteritis. No other signs of infection, no fever, WBC normal. Patient noted pain is still intense but better enough to try some sips of water. On IV zofran if needed and IV pantoprazole. Pain being controlled with IV morphine as patient cannot tolerate home oral pain medications. Differential includes gastroparesis, lupus enteritis, diabetes, other infectious cause. 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 (5) SLE (systemic lupus erythematosus related syndrome) Status: Chronic Problem Text: 06/30 Putting in midline today. Will give IV methylpednisolone when that is placed. Labs pending. 06/29 Currently on IV methylprednsiolone at this time. Unfortunately, she has lost IV access. If it can't be reestablished in the next couple shifts, then will consider a mid-line tomorrow. Holding home medication, including Afinitor, at this time. (6) Type 2 diabetes mellitus Onset Date: ~ 07/17/2015 Status: Chronic Problem Text: 06/30 Continue to monitor glucose. 06/29 Will add 10 units of basal insulin to her regimen starting tomorrow as she will only get worse while on steroids. Plan/VTE VTE Prophylaxis Ordered?: Yes (Teds and squentials) VS, I&O, 24H, Fishbone Vital Signs/I&O Vital Signs Date Time Temp Pulse Resp B/P (MAP) Pulse Ox O2 Delivery O2 Flow Rate FiO2 07/02/18 06:02 18 07/02/18 06:00 98.1 63 129/68 (88) 97 06/28/18 00:02 Room Air I&O- Last 24 Hours up to 6 AM 07/02/18 06:00 Intake Total 1910 ml Output Total 1000 ml Balance 910 ml Laboratory Data 24H LABS Laboratory Tests 2 07/01/18 11:24: Bedside Glucose (Misc Panel) 91 07/01/18 16:51: Bedside Glucose (Misc Panel) 109H 07/01/18 21:17: Bedside Glucose (Misc Panel) 157H 07/02/18 06:33: Nucleated Red Blood Cells % (auto) 0.0, Anion Gap 9, Glomerular Filtration Rate > 60.0, Blood Urea Nitrogen 6L, Creatinine 0.72, Sodium Level 140, Potassium Level 2.6#*L, Chloride Level 109H, Carbon Dioxide Level 22, Calcium Level 7.3L, Magnesium Level 1.8, C-Reactive Protein, Quantitative 0.49H CBC/BMP Laboratory Tests 07/02/18 06:33 Red Blood Count 3.78 L, Mean Corpuscular Volume 75.4 L, Mean Corpuscular Hemoglobin 23.8 L, Mean Corpuscular Hemoglobin Concent 31.6 L, Red Cell Distribution Width 15.0 H, Calcium Level 7.3 L Microbiology Microbiology 07/02/18 Stool Lactoferrin, Received Pending 06/30/18 Stool Occult Blood (KINJAL) - Final, Complete 06/28/18 Gastrointestinal Tract Panel (PCR) - Final, Complete GME ATTESTATION ATTENDING NOTE Family Medicine Attending Note: I was present on site to supervise Dale Price D.O. (OGME-3). We discussed the history and exam. I confirmed the henning elements during my [id number] encounter with the patient. We conferred on the assessment and plan; I agree with the note as documented. CT angiogram done ye sterday showed median arcuate ligament syndrome. I had a conversation with Dr. Chang today regarding this and he feels that she may benefit from surgical correction future. However, first we need to calm down the ileitis/inflammation. After that he would like to do upper and lower scopes to confirm there is no pathology in those areas. Capsule scope may be necessary after that. It would be around that time that surgical correction for the immediate arcuate ligament syndrome may be best considered. Objectively her inflammation (CRP, and CT findings) seems to be improving. Subjectively she seems about the same. Perhaps this is because she is limiting her intake of the pain medication. I encouraged her not to overuse the medication, but to take enough that she could get some relief and therefore rest and heal better. 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
[2018-07-03] MEDS: HYDROMORPHONE HCL 0.5 MG/ 0.5 ML SYRINGE (J1170 PER 1) IV PRN ×7 (00:20→21:12)
[2018-07-03] MEDS: NYSTATIN 500,000 U/5 ML SUSP UDC SS SCH ×4 (00:25→18:50)
[2018-07-03] MEDS: LORazepam 2 MG TAB PO PRN ×3 (03:55→22:34)
[2018-07-03] MEDS: KCL 20MEQ in NS 1000ML 1,000 ML IV SCH ×3 (03:55→21:14)
[2018-07-03] MEDS: SODIUM CHLORIDE 0.9% INJ 10 ML SYR IV SCH ×2 (05:34→17:58)
[2018-07-03 06:00] VITALS: BP 115/59
[2018-07-03] MEDS: LANSOPRAZOLE SUSPENSION 30 MG/10 ML ORAL SYRINGE (FIRST-LANSOPRAZOLE) PO SCH (09:59)
[2018-07-03] MEDS: methylPREDNISolone INJ 125 MG/2 ML VIAL (J2930) IV SCH (10:00)
[2018-07-03] MEDS: LEVEMIR (INSULIN DETEMIR) 1 UNITS/0.01ML SC SCH (10:01)
[2018-07-03] MEDS: HumaLOG INSULIN (NovoLOG) PER UNIT SC SCH ×4 (10:02→21:13)
[2018-07-03] MEDS: BUDESONIDE EC 3 MG CAP (ENTOCORT EC) PO SCH (10:05)
--- NOTE | 2018-07-03 11:39 | IPNPDOC ---
Subjective Date Seen The patient was seen on 07/03/18. Subjective Chief Complaint/HPI Noted that the pain does improve with Dilaudid. Has not had much to drink due to concern for high glucose. Would like friend to bring her in food to try. No other new concerns. No vomiting overnight. Constitutional: Denies: Chills, Fever Pulmonary: Denies: Dyspnea Cardiovascular: Denies: Chest Pain Objective Physical Examination General Exam: Positive: Alert, Cooperative, Mild Distress (from the abdominal pain) Eye Exam: Positive: PERRLA; Negative: Sclera icteric ENT Exam: Positive: Atraumatic; Negative: Mucous membr. moist/pink (mucous membranes are dry but not cracked or furrowed) Neck Exam: Positive: Supple Chest Exam: Positive: Clear to auscultation; Negative: Rales, Rhonchi Heart Exam: Positive: Rate Normal, Normal S1, Normal S2 Abdomen Exam: Positive: BS Hypoactive, Tenderness (Diffuse), Other (mildly distended. Pain is more diffuse and jorge-umbillical); Negative: Mass Extremity Exam: Negative: Edema Psych Exam: Positive: Mental status NL, Memory Intact, Oriented x 3 Assessment /Plan Problems (1) Abdominal pain Problem Text: Continue to treat abdominal pain. Encourage patient to use medication when need it. Dilaudid IV. Morphine was not helping as much, wore off. (2) Hypokalemia Problem Text: 07/03 K improved yesterday. Repeating BMP today. IV fluids with K. May adjust if needed. 07/02 K was 2.6 this morning. Added K to IV fluids and gave K runs. recheck at 1700. (3) Enteritis Status: Acute Problem Text: 07/02 Continue IV methylprenisolone to calm down inflammation. If able to calm down pain Dr. Beltran will consider upper endoscopy for patient while admitted. Also continue oral steroids at this time. 07/01 Labs pending. GI consulted, appreciate Dr. Beltran's assistance. Continue IV steroids and IV pain medication. 06/30 Per Rheumatology, labs pending. Will call and discuss case with GI, Dr. Beltran, who she was referred outpatient. Lost IV access so will put in midline. 06/29: I have added Entocort to her regimen to try to deliver steroid directly to the inflamed bowel. I have consulted Dr. Phillip to evaluate whether this is lupus related enteritis. If that does not seem promising then, I will look at consulting GI tomorrow (no coverage today). I changed the morphine from 2mg Q3h to IM hydromorphone 0.5mg q3h prn for a slight increase in intensity of the regimen, but also an attempt to make the pain control last longer. 06/28: CT showed some evidence of enteritis. No other signs of infection, no fever, WBC normal. Patient noted pain is still intense but better enough to try some sips of water. On IV zofran if needed and IV pantoprazole. Pain being controlled with IV morphine as patient cannot tolerate home oral pain medications. Differential includes gastroparesis, lupus enteritis, diabetes, other infectious cause. 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 (4) Median arcuate ligament syndrome Problem Text: Noted on CT scan. May be contributing to pain. May consider treating outpatient. (5) Thrush Problem Text: Some oral thrush was noted. Using Nystain SS q6. (6) SLE (systemic lupus erythematosus related syndrome) Status: Chronic Problem Text: 06/30 Putting in midline today. Will give IV methylpednisolone when that is placed. Labs pending. 06/29 Currently on IV methylprednsiolone at this time. Unfortunately, she has lost IV access. If it can't be reestablished in the next couple shifts, then will consider a mid-line tomorrow. Holding home medication, including Afinitor, at this time. (7) Type 2 diabetes mellitus Onset Date: ~ 07/17/2015 Status: Chronic Problem Text: 06/30 Continue to monitor glucose. 06/29 Will add 10 units of basal insulin to her regimen starting tomorrow as she will only get worse while on steroids. Plan/VTE VTE Prophylaxis Ordered?: Yes (Teds and squentials) VS, I&O, 24H, Fishbone Vital Signs/I&O Vital Signs Date Time Temp Pulse Resp B/P (MAP) Pulse Ox O2 Delivery O2 Flow Rate FiO2 07/03/18 10:00 16 07/03/18 06:00 98.2 68 115/59 (77) 95 06/28/18 00:02 Room Air I&O- Last 24 Hours up to 6 AM 07/03/18 06:00 Intake Total 2870 ml Output Total 3600 ml Balance -730 ml Laboratory Data 24H LABS Laboratory Tests 2 07/02/18 11:40: Bedside Glucose (Misc Panel) 121H 07/02/18 16:47: Bedside Glucose (Misc Panel) 189H 07/02/18 17:01: Anion Gap 7L, Glomerular Filtration Rate > 60.0, Blood Urea Nitrogen 4L, Creatinine 0.74, Sodium Level 137, Potassium Level 4.9#, Chloride Level 106, Carbon Dioxide Level 24, Calcium Level 8.3L 07/03/18 05:48: Bedside Glucose (Misc Panel) 153H 07/03/18 05:54: C-Reactive Protein, Quantitative 0.55H CBC/BMP Laboratory Tests 07/02/18 17:01 Calcium Level 8.3 L Microbiology Microbiology 07/02/18 Stool Lactoferrin - Final, Complete 06/30/18 Stool Occult Blood (KINJAL) - Final, Complete 06/28/18 Gastrointestinal Tract Panel (PCR) - Final, Complete GME ATTESTATION GME ATTESTATION My faculty preceptor for this patient encounter was physically present during the encounter and was fully available. All aspects of the patient interview, examination, medical decision making process, and medical care plan development were reviewed and approved by the faculty preceptor. The faculty preceptor is aware and concurs with the plan as stated in the body of this note and will attest to such by his/her cosignature. ATTENDING NOTE Patient seen and examined. Case reviewed with Dr. Price. DALE PRICE DO Jul 03, 2018 11:39 Felipe Hartman M.D. Jul 05, 2018 07:59
[2018-07-03 13:06] LABS: BLOOD UREA NITROGEN 5 MG/DL (7-18); CALCIUM LEVEL 8.1 MG/DL (8.5-10.1); CARBON DIOXIDE LEVEL 25 MEQ/L (21-32); CHLORIDE LEVEL 111 MEQ/L (98-107); CREATININE FOR GFR 0.86 MG/DL (0.55-1.30); GLOMERULAR FILTRATION RATE > 60.0 (>51); GLUCOSE, FASTING 66 MG/DL (70-100); POTASSIUM SERUM 3.6 MEQ/L (3.5-5.1); SODIUM LEVEL 143 MEQ/L (136-145)
[2018-07-03 14:00] VITALS: BP 123/61
[2018-07-03 22:00] VITALS: BP 131/71
[2018-07-03] MEDS: ONDANSETRON 4 MG ORAL DISINTEGRATING TAB (Q0162 PER 1MG) PO PRN (22:04)
[2018-07-04] MEDS: HYDROMORPHONE HCL 0.5 MG/ 0.5 ML SYRINGE (J1170 PER 1) IV PRN ×6 (00:22→20:54)
[2018-07-04] MEDS: NYSTATIN 500,000 U/5 ML SUSP UDC SS SCH ×5 (00:28→23:07)
[2018-07-04] MEDS: KCL 20MEQ in NS 1000ML 1,000 ML IV SCH ×3 (05:09→18:20)
[2018-07-04] MEDS: LORazepam 2 MG TAB PO PRN (05:09)
[2018-07-04] MEDS: SODIUM CHLORIDE 0.9% INJ 10 ML SYR IV SCH ×2 (05:10→14:48)
[2018-07-04 06:00] VITALS: BP 122/67
[2018-07-04 07:00] LABS: BLOOD UREA NITROGEN 4 MG/DL (7-18); C REACTIVE PROTEIN QUANTITATIV 0.52 MG/DL (0.00-0.30); CALCIUM LEVEL 7.7 MG/DL (8.5-10.1); CARBON DIOXIDE LEVEL 23 MEQ/L (21-32); CHLORIDE LEVEL 110 MEQ/L (98-107); CREATININE FOR GFR 0.86 MG/DL (0.55-1.30); GLOMERULAR FILTRATION RATE > 60.0 (>51); GLUCOSE, FASTING 165 MG/DL (70-100); POTASSIUM SERUM 3.5 MEQ/L (3.5-5.1); SODIUM LEVEL 140 MEQ/L (136-145)
[2018-07-04] MEDS: methylPREDNISolone INJ 125 MG/2 ML VIAL (J2930) IV SCH (10:12)
[2018-07-04] MEDS: HumaLOG INSULIN (NovoLOG) PER UNIT SC SCH ×4 (10:13→21:00)
[2018-07-04] MEDS: LANSOPRAZOLE SUSPENSION 30 MG/10 ML ORAL SYRINGE (FIRST-LANSOPRAZOLE) PO SCH (10:13)
[2018-07-04] MEDS: BUDESONIDE EC 3 MG CAP (ENTOCORT EC) PO SCH (10:13)
[2018-07-04] MEDS: LEVEMIR (INSULIN DETEMIR) 1 UNITS/0.01ML SC SCH (10:14)
[2018-07-04] MEDS: ONDANSETRON 4 MG ORAL DISINTEGRATING TAB (Q0162 PER 1MG) PO PRN (19:36)
[2018-07-04 22:00] VITALS: BP 123/67
[2018-07-04] MEDS: zolPIDEM TARTRATE 10MG TAB PO PRN (23:07)
[2018-07-05] MEDS: HYDROMORPHONE HCL 0.5 MG/ 0.5 ML SYRINGE (J1170 PER 1) IV PRN ×8 (00:02→22:49)
[2018-07-05] MEDS: KCL 20MEQ in NS 1000ML 1,000 ML IV SCH ×3 (03:08→20:37)
[2018-07-05] MEDS: LORazepam 2 MG TAB PO PRN ×2 (03:59→16:02)
[2018-07-05 06:00] VITALS: BP 140/64
[2018-07-05] MEDS: NYSTATIN 500,000 U/5 ML SUSP UDC SS SCH ×4 (06:10→23:09)
[2018-07-05] MEDS: SODIUM CHLORIDE 0.9% INJ 10 ML SYR IV SCH ×2 (06:11→16:56)
[2018-07-05 06:26] LABS: BASO % 0.1 % (0.0-1.0); EOS % 0.4 % (0.0-3.0); HEMATOCRIT 26.8 % (36.0-47.0); HEMOGLOBIN 8.6 g/dl (12.0-15.5); LYMPH # 2.5 10^3/uL (1.5-4.5); LYMPH % 28.3 % (24.0-44.0); MEAN CORPUSCULAR HEMOGLOBIN 24.5 pg (27.0-33.0); MEAN CORPUSCULAR HGB CONC 32.1 g/dl (32.0-36.5); MEAN CORPUSCULAR VOLUME 76.4 fl (80.0-96.0); MONO # 0.9 10^3/uL (0.0-0.8); MONO % 9.6 % (0.0-5.0); NEUTROPHILS # 5.4 10^3/uL (1.8-7.7); NEUTROPHILS % 60.4 % (36.0-66.0); PLATELET COUNT, AUTOMATED 256 10^3/uL (150-450); RED BLOOD COUNT 3.51 10^6/uL (4.00-5.40); WHITE BLOOD COUNT 8.9 10^3/uL (4.0-10.0)
[2018-07-05 06:54] LABS: ALBUMIN 2.6 GM/DL (3.2-5.2); ALT/SGPT 36 U/L (12-78); BILIRUBIN,TOTAL 0.4 MG/DL (0.2-1.0); BLOOD UREA NITROGEN 5 MG/DL (7-18); C REACTIVE PROTEIN QUANTITATIV 0.39 MG/DL (0.00-0.30); CALCIUM LEVEL 7.6 MG/DL (8.5-10.1); CARBON DIOXIDE LEVEL 25 MEQ/L (21-32); CHLORIDE LEVEL 108 MEQ/L (98-107); CREATININE FOR GFR 0.85 MG/DL (0.55-1.30); GLOMERULAR FILTRATION RATE > 60.0 (>51); GLUCOSE, FASTING 171 MG/DL (70-100); POTASSIUM SERUM 3.3 MEQ/L (3.5-5.1); SODIUM LEVEL 140 MEQ/L (136-145); TOTAL PROTEIN 6.1 GM/DL (6.4-8.2)
[2018-07-05] MEDS ORDERED: POTASSIUM CHLORIDE 10% LIQ 20 MEQ/15 ML UDC PO ONE (09:00)
[2018-07-05] MEDS: BUDESONIDE EC 3 MG CAP (ENTOCORT EC) PO SCH (09:21)
[2018-07-05] MEDS: methylPREDNISolone INJ 125 MG/2 ML VIAL (J2930) IV SCH (09:22)
[2018-07-05] MEDS: LANSOPRAZOLE SUSPENSION 30 MG/10 ML ORAL SYRINGE (FIRST-LANSOPRAZOLE) PO SCH (09:22)
[2018-07-05] MEDS: LEVEMIR (INSULIN DETEMIR) 1 UNITS/0.01ML SC SCH (09:23)
[2018-07-05] MEDS: HumaLOG INSULIN (NovoLOG) PER UNIT SC SCH ×4 (09:24→20:34)
--- NOTE | 2018-07-05 11:54 | IPNPDOC ---
Subjective Date Seen The patient was seen on 07/05/18. Subjective Chief Complaint/HPI Patient is in about the same amount of pain as previous. The pain medication does bring it down. Patient is able to walk to the bathroom and back. Did keep down some outside tea over the weekend. Constitutional: Denies: Chills, Fever ENT: Denies: Head Aches Pulmonary: Denies: Dyspnea, Cough Cardiovascular: Denies: Chest Pain Objective Physical Examination General Exam: Positive: Alert, Cooperative, Mild Distress (from the abdominal pain) Eye Exam: Positive: PERRLA; Negative: Sclera icteric ENT Exam: Positive: Atraumatic; Negative: Mucous membr. moist/pink (mucous membranes are dry but not cracked or furrowed) Neck Exam: Positive: Supple Chest Exam: Positive: Clear to auscultation; Negative: Rales, Rhonchi Heart Exam: Positive: Rate Normal, Normal S1, Normal S2 Abdomen Exam: Positive: BS Hypoactive, Tenderness (Diffuse), Other (mildly distended. Pain is more diffuse and jorge-umbillical); Negative: Mass Extremity Exam: Negative: Edema Psych Exam: Positive: Mental status NL, Memory Intact, Oriented x 3 Assessment /Plan Problems (1) Abdominal pain Problem Text: 07/05 Patient continues to have abdominal pain. Is being managed with Dilaudid. Continue to treat abdominal pain. Encourage patient to use medication when need it. Dilaudid IV. Morphine was not helping as much, wore off. (2) Hypokalemia Problem Text: 07/05 K 3.3 today. Continue to give K in IV fluids. One time dose 20 meq PO potassium. 07/03 K improved yesterday. Repeating BMP today. IV fluids with K. May adjust if needed. 07/02 K was 2.6 this morning. Added K to IV fluids and gave K runs. recheck at 1700. (3) Enteritis Status: Acute Problem Text: 07/05 Consider tapering IV steroid tomorrow. Also continuing oral steroids for now. If patient's symptoms worsen can increase. 07/02 Continue IV methylprenisolone to calm down inflammation. If able to calm down pain Dr. Beltran will consider upper endoscopy for patient while admitted. Also continue oral steroids at this time. 07/01 Labs pending. GI consulted, appreciate Dr. Beltran's assistance. Continue IV steroids and IV pain medication. 06/30 Per Rheumatology, labs pending. Will call and discuss case with GI, Dr. Beltran, who she was referred outpatient. Lost IV access so will put in midline. 06/29: I have added Entocort to her regimen to try to deliver steroid directly to the inflamed bowel. I have consulted Dr. Phillip to evaluate whether this is lupus related enteritis. If that does not seem promising then, I will look at consulting GI tomorrow (no coverage today). I changed the morphine from 2mg Q3h to IM hydromorphone 0.5mg q3h prn for a slight increase in intensity of the regimen, but also an attempt to make the pain control last longer. 06/28: CT showed some evidence of enteritis. No other signs of infection, no fever, WBC normal. Patient noted pain is still intense but better enough to try some sips of water. On IV zofran if needed and IV pantoprazole. Pain being controlled with IV morphine as patient cannot tolerate home oral pain medications. Differential includes gastroparesis, lupus enteritis, diabetes, other infectious cause. 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 (4) Median arcuate ligament syndrome Problem Text: Noted on CT scan. May be contributing to pain. May consider treating outpatient. (5) Thrush Problem Text: Some oral thrush was noted. Using Nystain SS q6. (6) SLE (systemic lupus erythematosus related syndrome) Status: Chronic Problem Text: 07/05 Labs for IBD and celiac were negative. 06/30 Putting in midline today. Will give IV methylpednisolone when that is placed. Labs pending. 06/29 Currently on IV methylprednsiolone at this time. Unfortunately, she has lost IV access. If it can't be reestablished in the next couple shifts, then will consider a mid-line tomorrow. Holding home medication, including Afinitor, at this time. (7) Type 2 diabetes mellitus Onset Date: ~ 07/17/2015 Status: Chronic Problem Text: 06/30 Continue to monitor glucose. 06/29 Will add 10 units of basal insulin to her regimen starting tomorrow as she will only get worse while on steroids. Plan/VTE VTE Prophylaxis Ordered?: Yes (Teds and squentials) VS, I&O, 24H, Fishbone Vital Signs/I&O Vital Signs Date Time Temp Pulse Resp B/P (MAP) Pulse Ox O2 Delivery O2 Flow Rate FiO2 07/05/18 09:35 16 07/05/18 06:00 98.3 86 140/64 (89) 97 I&O- Last 24 Hours up to 6 AM 07/05/18 05:59 Intake Total 300 ml Output Total 1300 ml Balance -1000 ml Laboratory Data 24H LABS Laboratory Tests 2 07/04/18 11:58: Bedside Glucose (Misc Panel) 123H 07/04/18 16:26: Bedside Glucose (Misc Panel) 224H 07/04/18 21:49: Bedside Glucose (Misc Panel) 198H 07/05/18 05:59: Immature Granulocyte % (Auto) 1.2, White Blood Count 8.9, Red Blood Count 3.51L, Hemoglobin 8.6L, Hematocrit 26.8L, Mean Corpuscular Volume 76.4L, Mean Corpuscular Hemoglobin 24.5L, Mean Corpuscular Hemoglobin Concent 32.1, Red Cell Distribution Width 15.8H, Platelet Count 256, Neutrophils (%) (Auto) 60.4, Lymphocytes (%) (Auto) 28.3, Monocytes (%) (Auto) 9.6H, Eosinophils (%) (Auto) 0.4, Basophils (%) (Auto) 0.1, Neutrophils # (Auto) 5.4, Lymphocytes # (Auto) 2.5, Monocytes # (Auto) 0.9H, Eosinophils # (Auto) 0.0, Basophils # (Auto) 0.0, Nucleated Red Blood Cells % (auto) 0.0, Anion Gap 7L, Glomerular Filtration Rate > 60.0, Blood Urea Nitrogen 5L, Creatinine 0.85, Sodium Level 140, Potassium Level 3.3L, Chloride Level 108H, Carbon Dioxide Level 25, Calcium Level 7.6L, Aspartate Amino Transf (AST/SGOT) 21, Alanine Aminotransferase (ALT/SGPT) 36, Alkaline Phosphatase 95, Total Bilirubin 0.4, Total Protein 6.1L, Albumin 2.6L, C-Reactive Protein, Quantitative 0.39H, Albumin/Globulin Ratio 0.74L CBC/BMP Laboratory Tests 07/05/18 05:59 Red Blood Count 3.51 L, Mean Corpuscular Volume 76.4 L, Mean Corpuscular Hemoglobin 24.5 L, Mean Corpuscular Hemoglobin Concent 32.1, Red Cell Distribution Width 15.8 H, Neutrophils (%) (Auto) 60.4, Lymphocytes (%) (Auto) 28.3, Monocytes (%) (Auto) 9.6 H, Eosinophils (%) (Auto) 0.4, Basophils (%) (Auto) 0.1, Neutrophils # (Auto) 5.4, Lymphocytes # (Auto) 2.5, Monocytes # (Auto) 0.9 H, Eosinophils # (Auto) 0.0, Basophils # (Auto) 0.0, Calcium Level 7.6 L, Aspartate Amino Transf (AST/SGOT) 21, Alanine Aminotransferase (ALT/SGPT) 36, Alkaline Phosphatase 95, Total Bilirubin 0.4, Total Protein 6.1 L, Albumin 2.6 L Microbiology Microbiology 07/02/18 Stool Lactoferrin - Final, Complete 06/30/18 Stool Occult Blood (KINJAL) - Final, Complete 06/28/18 Gastrointestinal Tract Panel (PCR) - Final, Complete GME ATTESTATION GME ATTESTATION My faculty preceptor for this patient encounter was physically present during the encounter and was fully available. All aspects of the patient interview, examination, medical decision making process, and medical care plan development were reviewed and approved by the faculty preceptor. The faculty preceptor is aware and concurs with the plan as stated in the body of this note and will attest to such by his/her cosignature. DALE PRICE DO Jul 05, 2018 11:54
[2018-07-05 14:00] VITALS: BP 129/67
[2018-07-05] MEDS: zolPIDEM TARTRATE 10MG TAB PO PRN (20:36)
--- NOTE | 2018-07-05 20:59 | IPNPDOC ---
Date Seen The patient was seen on 07/05/18. Progress Note SUBJECTIVE: Patient is feeling about the same and having more abdominal pain this morning. No other new symptoms. PHYSICAL EXAMINATION: VITAL SIGNS: Please see below. GENERAL: The patient was lying in bed without acute distress. HEENT: Normocephalic, atraumatic. Extraocular movements intact. MUSCULOSKELETAL: Hands: There is mild swelling and flexion contraction right 5th PIP, with multiple Heberden's and Corinne's nodes. LABORATORY DATA: Please see below. Reviewed laboratory available in [facility]: MAKI negative in 2013 and 2016, with negative all lupus panel including dsDNA, anti-salamanca, SSA, SSB and DIGITAL COMMENTATOR antibodies. Positive anti-Gliadin antibodies, negative anti-transglutaminase. CBC is unremarkable besides chronic anemia with Hb 10, MCV <80. UA with no proteinuria. Normal C3 and C4. ESR 47. CRP 1.[address] scan reviewed with Dr. Stovall: enteritis affecting large section of the distal small bowel new comparing with the previous CT scan. CT angiogram showed arcuate ligament syndrome, decreased ascites. ASSESSMENT/PLAN: Patient carries a history of systemic lupus erythematous on Everolimus as needed. The history is not consistent, and the treatment is not specific. She does have acute on chronic abdominal pain with evidence of small bowel inflammation and ascites seen in CT scan. CT angiogram showed abnormalities with arcuate ligament syndrome that could cause her symptoms. In term of her SLE, she has negative MAKI twice with negative serology. Currently with normal complement level, no cytopenias except for microcytic anemia. Only mild elevation of ESR and CRP. No evidence of gross kidney diseases with an unusual immunosuppressive therapy regimen making lupus diagnosis questionable. I don't see any active lupus features at this moment and her abdominal symptom is less likely from lupus. The immediate plan should be the treatment of abdominal pain. Follow up GI recommendations. I discussed with patient the results of her laboratory and imaging testing. I advised her to follow up with Dr. Mayo after discharge from hospital. Rheumatology will sign off. Please call me if any further questions. VS, I&O, 24H, Fishbone Vital Signs/I&O Vital Signs Date Time Temp Pulse Resp B/P (MAP) Pulse Ox O2 Delivery O2 Flow Rate FiO2 07/05/18 19:40 18 07/05/18 14:00 98.1 63 129/67 (87) 98 I&O- Last 24 Hours up to 6 AM 2/18/19 06:00 Intake Total 300 ml Output Total 1450 ml Balance -1150 ml Laboratory Data 24H LABS Laboratory Tests 2 07/04/18 21:49: Bedside Glucose (Misc Panel) 198H 07/05/18 05:59: Immature Granulocyte % (Auto) 1.2, White Blood Count 8.9, Red Blood Count 3.51L, Hemoglobin 8.6L, Hematocrit 26.8L, Mean Corpuscular Volume 76.4L, Mean Corpuscular Hemoglobin 24.5L, Mean Corpuscular Hemoglobin Concent 32.1, Red Cell Distribution Width 15.8H, Platelet Count 256, Neutrophils (%) (Auto) 60.4, Lymphocytes (%) (Auto) 28.3, Monocytes (%) (Auto) 9.6H, Eosinophils (%) (Auto) 0.4, Basophils (%) (Auto) 0.1, Neutrophils # (Auto) 5.4, Lymphocytes # (Auto) 2.5, Monocytes # (Auto) 0.9H, Eosinophils # (Auto) 0.0, Basophils # (Auto) 0.0, Nucleated Red Blood Cells % (auto) 0.0, Anion Gap 7L, Glomerular Filtration Rate > 60.0, Blood Urea Nitrogen 5L, Creatinine 0.85, Sodium Level 140, Potassium Level 3.3L, Chloride Level 108H, Carbon Dioxide Level 25, Calcium Level 7.6L, Aspartate Amino Transf (AST/SGOT) 21, Alanine Aminotransferase (ALT/SGPT) 36, Alkaline Phosphatase 95, Total Bilirubin 0.4, Total Protein 6.1L, Albumin 2.6L, C-Reactive Protein, Quantitative 0.39H, Albumin/Globulin Ratio 0.74L 07/05/18 12:37: Bedside Glucose (Misc Panel) 163H 07/05/18 16:50: Bedside Glucose (Misc Panel) 193H 07/05/18 20:32: Bedside Glucose (Misc Panel) 210H CBC/BMP Laboratory Tests 07/05/18 05:59 Red Blood Count 3.51 L, Mean Corpuscular Volume 76.4 L, Mean Corpuscular Hemoglobin 24.5 L, Mean Corpuscular Hemoglobin Concent 32.1, Red Cell Distribution Width 15.8 H, Neutrophils (%) (Auto) 60.4, Lymphocytes (%) (Auto) 28.3, Monocytes (%) (Auto) 9.6 H, Eosinophils (%) (Auto) 0.4, Basophils (%) (Auto) 0.1, Neutrophils # (Auto) 5.4, Lymphocytes # (Auto) 2.5, Monocytes # (Auto) 0.9 H, Eosinophils # (Auto) 0.0, Basophils # (Auto) 0.0, Calcium Level 7.6 L, Aspartate Amino Transf (AST/SGOT) 21, Alanine Aminotransferase (ALT/SGPT) 36, Alkaline Phosphatase 95, Total Bilirubin 0.4, Total Protein 6.1 L, Albumin 2.6 L Microbiology Microbiology 07/02/18 Stool Lactoferrin - Final, Complete 06/30/18 Stool Occult Blood (KINJAL) - Final, Complete 06/28/18 Gastrointestinal Tract Panel (PCR) - Final, Complete JOSEPH KHAN MD Jul 05, 2018 20:59
[2018-07-05] MEDS: ONDANSETRON 4 MG ORAL DISINTEGRATING TAB (Q0162 PER 1MG) PO PRN (21:38)
[2018-07-05 22:00] VITALS: BP 120/56
[2018-07-06] MEDS: HYDROMORPHONE HCL 0.5 MG/ 0.5 ML SYRINGE (J1170 PER 1) IV PRN ×5 (02:02→21:09)
[2018-07-06] MEDS: KCL 20MEQ in NS 1000ML 1,000 ML IV SCH ×3 (05:02→23:58)
[2018-07-06] MEDS: NYSTATIN 500,000 U/5 ML SUSP UDC SS SCH ×4 (05:02→23:58)
[2018-07-06] MEDS: SODIUM CHLORIDE 0.9% INJ 10 ML SYR IV SCH ×2 (05:02→17:51)
[2018-07-06 06:00] VITALS: BP 142/76
[2018-07-06 06:07] LABS: HEMATOCRIT 26.9 % (36.0-47.0); HEMOGLOBIN 8.6 g/dl (12.0-15.5); MEAN CORPUSCULAR VOLUME 78.2 fl (80.0-96.0); PLATELET COUNT, AUTOMATED 283 10^3/uL (150-450); RED BLOOD COUNT 3.44 10^6/uL (4.00-5.40); WHITE BLOOD COUNT 11.2 10^3/uL (4.0-10.0)
[2018-07-06 06:36] LABS: BLOOD UREA NITROGEN 7 MG/DL (7-18); C REACTIVE PROTEIN QUANTITATIV < 0.30 MG/DL (0.00-0.30); CALCIUM LEVEL 7.5 MG/DL (8.5-10.1); CARBON DIOXIDE LEVEL 25 MEQ/L (21-32); CHLORIDE LEVEL 109 MEQ/L (98-107); GLOMERULAR FILTRATION RATE > 60.0 (>51); GLUCOSE, FASTING 171 MG/DL (70-100); POTASSIUM SERUM 3.5 MEQ/L (3.5-5.1); SODIUM LEVEL 142 MEQ/L (136-145)
[2018-07-06] MEDS: methylPREDNISolone INJ 125 MG/2 ML VIAL (J2930) IV SCH (08:05)
[2018-07-06] MEDS: LANSOPRAZOLE SUSPENSION 30 MG/10 ML ORAL SYRINGE (FIRST-LANSOPRAZOLE) PO SCH (08:05)
[2018-07-06] MEDS: BUDESONIDE EC 3 MG CAP (ENTOCORT EC) PO SCH (08:06)
[2018-07-06] MEDS: LEVEMIR (INSULIN DETEMIR) 1 UNITS/0.01ML SC SCH (08:07)
[2018-07-06] MEDS: HumaLOG INSULIN (NovoLOG) PER UNIT SC SCH ×4 (08:07→20:55)
[2018-07-06] MEDS: LORazepam 2 MG TAB PO PRN ×2 (08:29→16:31)
[2018-07-06 10:50] VITALS: BP 135/66
--- NOTE | 2018-07-06 11:24 | IPNPDOC ---
Subjective Date Seen The patient was seen on 07/06/18. Subjective Chief Complaint/HPI Pt this morning c/o persistent abd pain. General: Denies: Fatigue Constitutional: Denies: Chills, Fever Skin: Denies: Rash Pulmonary: Denies: Dyspnea, Cough Cardiovascular: Denies: Chest Pain, Palpitations Gastrointestinal: Reports: Abdominal Pain; Denies: Nausea, Vomiting Neurological: Denies: Weakness Objective Physical Examination General Exam: Positive: Alert, Cooperative, No Acute Distress, Mild Distress (from the abdominal pain) Eye Exam: Positive: PERRLA; Negative: Sclera icteric ENT Exam: Positive: Atraumatic; Negative: Mucous membr. moist/pink (mucous membranes are dry but not cracked or furrowed) Neck Exam: Positive: Supple Chest Exam: Positive: Clear to auscultation, Normal air movement; Negative: Rales, Rhonchi Heart Exam: Positive: Rate Normal, Normal S1, Normal S2 Abdomen Exam: Positive: BS Hyperactive, Tenderness (Diffuse), Other (mildly distended. Pain is more diffuse and jorge-umbillical); Negative: Mass Extremity Exam: Negative: Edema Psych Exam: Positive: Mental status NL, Memory Intact, Oriented x 3 Assessment /Plan Problems (1) Abdominal pain Status: Acute Discussed With: Nurse, Patient Problem Text: 07/06 Persistent abd pain. 07/05 Patient continues to have abdominal pain. Is being managed with Dilaudid. Continue to treat abdominal pain. Encourage patient to use medication when need it. Dilaudid IV. Morphine was not helping as much, wore off. (2) Hypokalemia Status: Acute Response to Treatment: Improving Discussed With: Patient Problem Text: 07/05 K 3.3 today. Continue to give K in IV fluids. One time dose 20 meq PO potassium. 07/03 K improved yesterday. Repeating BMP today. IV fluids with K. May adjust if needed. 07/02 K was 2.6 this morning. Added K to IV fluids and gave K runs. recheck at 1700. (3) Enteritis Status: Acute Problem Text: 07/05 Consider tapering IV steroid tomorrow. Also continuing oral steroids for now. If patient's symptoms worsen can increase. 07/02 Continue IV methylprenisolone to calm down inflammation. If able to calm down pain Dr. Beltran will consider upper endoscopy for patient while admitted. Also continue oral steroids at this time. 07/01 Labs pending. GI consulted, appreciate Dr. Beltran's assistance. Continue IV steroids and IV pain medication. 06/30 Per Rheumatology, labs pending. Will call and discuss case with GI, Dr. Beltran, who she was referred outpatient. Lost IV access so will put in midline. 06/29: I have added Entocort to her regimen to try to deliver steroid directly to the inflamed bowel. I have consulted Dr. Phillip to evaluate whether this is lupus related enteritis. If that does not seem promising then, I will look at consulting GI tomorrow (no coverage today). I changed the morphine from 2mg Q3h to IM hydromorphone 0.5mg q3h prn for a slight increase in intensity of the regimen, but also an attempt to make the pain control last longer. 06/28: CT showed some evidence of enteritis. No other signs of infection, no fever, WBC normal. Patient noted pain is still intense but better enough to try some sips of water. On IV zofran if needed and IV pantoprazole. Pain being controlled with IV morphine as patient cannot tolerate home oral pain medications. Differential includes gastroparesis, lupus enteritis, diabetes, other infectious cause. 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 (4) Median arcuate ligament syndrome Problem Text: Noted on CT scan. May be contributing to pain. May consider treating outpatient. (5) Thrush Problem Text: Some oral thrush was noted. Using Nystain SS q6. (6) SLE (systemic lupus erythematosus related syndrome) Status: Chronic Problem Text: 07/05 Labs for IBD and celiac were negative. 06/30 Putting in midline today. Will give IV methylpednisolone when that is placed. Labs pending. 06/29 Currently on IV methylprednsiolone at this time. Unfortunately, she has lost IV access. If it can't be reestablished in the next couple shifts, then will consider a mid-line tomorrow. Holding home medication, including Afinitor, at this time. (7) Type 2 diabetes mellitus Onset Date: ~ 07/17/2015 Status: Chronic Problem Text: 06/30 Continue to monitor glucose. 06/29 Will add 10 units of basal insulin to her regimen starting tomorrow as she will only get worse while on steroids. Plan/VTE VTE Prophylaxis Ordered?: Yes (Teds and squentials) VS, I&O, 24H, Fishbone Vital Signs/I&O Vital Signs Date Time Temp Pulse Resp B/P (MAP) Pulse Ox O2 Delivery O2 Flow Rate FiO2 07/06/18 08:30 16 07/06/18 06:00 97.6 62 142/76 (98) 96 I&O- Last 24 Hours up to 6 AM 07/06/18 06:00 Intake Total 4510 ml Output Total 2800 ml Balance 1710 ml Laboratory Data 24H LABS Laboratory Tests 2 07/05/18 12:37: Bedside Glucose (Misc Panel) 163H 07/05/18 16:50: Bedside Glucose (Misc Panel) 193H 07/05/18 20:32: Bedside Glucose (Misc Panel) 210H 07/05/18 21:25: Bedside Glucose (Misc Panel) 210H 07/06/18 05:47: Nucleated Red Blood Cells % (auto) 0.0, Anion Gap 8, Glomerular Filtration Rate > 60.0, Blood Urea Nitrogen 7, Creatinine 0.80, Sodium Level 142, Potassium Level 3.5, Chloride Level 109H, Carbon Dioxide Level 25, Calcium Level 7.5L, C- Reactive Protein, Quantitative < 0.30 CBC/BMP Laboratory Tests 07/06/18 05:47 Red Blood Count 3.44 L, Mean Corpuscular Volume 78.2 L, Mean Corpuscular Hemoglobin 25.0 L, Mean Corpuscular Hemoglobin Concent 32.0, Red Cell Distribution Width 16.5 H, Calcium Level 7.5 L Microbiology Microbiology 07/02/18 Stool Lactoferrin - Final, Complete 06/30/18 Stool Occult Blood (KINJAL) - Final, Complete 06/28/18 Gastrointestinal Tract Panel (PCR) - Final, Complete HENRY NOEL PA-C Jul 06, 2018 11:24
[2018-07-06 14:39] VITALS: BP 117/59
[2018-07-06] MEDS: ONDANSETRON 4 MG ORAL DISINTEGRATING TAB (Q0162 PER 1MG) PO PRN (16:37)
--- NOTE | 2018-07-06 19:50 | IPN ---
DATE: 07/04/2018 The patient is seen today on [facility]. She reports that she had some vomiting in the night. Still having abdominal pain, still having nausea. Her bowels are moving but not what she would expect. Really only tolerating liquids. She did have some broth yesterday. She is not having any cough or shortness of breath, chest pains or palpitations. She remains on: - normal saline with 20 mEq of potassium per liter - Dilaudid - She has Dilaudid 0.8 mg every 3 hours as needed - Ativan 2 mg every 4 hours as needed - lansoprazole 30 mg daily - Levemir 10 units daily - Zofran 4 mg every 4 hours as needed - sliding scale insulin - Ativan as needed for anxiety intravenous (IV). She has not used that. - Entocort - She is getting the Entocort - Solu-Medrol - 60 mg of Solu-Medrol daily PHYSICAL EXAMINATION: VITAL SIGNS: On examination, temperature is 97.3, pulse 74 and regular, respiratory rate 18, blood pressure 122/67, pulse oximetry 97%. GENERAL: She is awake and alert. She looks uncomfortable and frustrated. LUNGS: Her lungs are clear. HEART: Her heart has a regular rhythm without any murmur, click or gallop. ABDOMEN: Abdomen is soft and slightly protuberant. Bowel sounds are hypoactive. Seems to be most tender in the epigastrium and the left upper quadrant. There is no edema. LABORATORIES: Labs done today show: BUN of 4, creatinine 0.86. Sodium 140, potassium 3.5, fasting glucose 165, calcium 7.7. C-reactive protein 0.52. ASSESSMENT: 1. Chronic abdominal pain. This does not seem to be any better. 2. Hypokalemia. Potassium is normal at this time. 3. Enteritis. Her CT angiogram seemed to indicate that this was improving. 4. Possible median arcuate ligament syndrome. See below. 5. Thrush. Using oral nystatin. 6. Systemic lupus erythematosus. See below. 7. Type 2 diabetes. Under treatment. PLAN: At this point we will continue all the medications mentioned above. She says she is not sleeping and that Ativan does not help her sleep, therefore we will reduce the number of doses of Ativan that she can receive and then allow her to receive Ambien at bed time. I indicated to her that Dr. Beltran needs to indicate to us what his plans are if he is not going to endoscope her this week then what else we should do to diagnose or treat her pain. If she truly has the median arcuate ligament syndrome the specialist to consult would be the vascular surgeon and we will get him involved when he is available tomorrow. During this admission also seen by Dr. Phillip, who expressed some question as well whether the patient truly has had lupus or not, but I do not have enough background information to indicate this. The person who knows her best seems to be Dr. Camacho.
[2018-07-06 22:00] VITALS: BP 150/71
[2018-07-07] MEDS: HYDROMORPHONE HCL 0.5 MG/ 0.5 ML SYRINGE (J1170 PER 1) IV PRN ×7 (00:10→23:36)
[2018-07-07] MEDS: LORazepam 2 MG TAB PO PRN ×4 (02:10→23:35)
[2018-07-07] MEDS ORDERED: ACETAMINOPHEN TAB 650MG DOSE (2X325MG) PO PRN (04:00)
[2018-07-07] MEDS: SODIUM CHLORIDE 0.9% INJ 10 ML SYR IV SCH ×2 (06:00→17:42)
[2018-07-07] MEDS: NYSTATIN 500,000 U/5 ML SUSP UDC SS SCH ×4 (06:18→23:35)
[2018-07-07 06:44] LABS: BLOOD UREA NITROGEN 9 MG/DL (7-18); CALCIUM LEVEL 7.9 MG/DL (8.5-10.1); CARBON DIOXIDE LEVEL 27 MEQ/L (21-32); CHLORIDE LEVEL 109 MEQ/L (98-107); CREATININE FOR GFR 0.76 MG/DL (0.55-1.30); GLOMERULAR FILTRATION RATE > 60.0 (>51); GLUCOSE, FASTING 123 MG/DL (70-100); POTASSIUM SERUM 3.6 MEQ/L (3.5-5.1); SODIUM LEVEL 142 MEQ/L (136-145)
[2018-07-07] MEDS: BUDESONIDE EC 3 MG CAP (ENTOCORT EC) PO SCH (09:06)
[2018-07-07] MEDS: methylPREDNISolone INJ 40 MG/1 ML VIAL (J2920) IV SCH (09:07)
[2018-07-07] MEDS: LEVEMIR (INSULIN DETEMIR) 1 UNITS/0.01ML SC SCH (09:09)
[2018-07-07] MEDS: LANSOPRAZOLE SUSPENSION 30 MG/10 ML ORAL SYRINGE (FIRST-LANSOPRAZOLE) PO SCH (09:10)
[2018-07-07] MEDS: KCL 20MEQ in NS 1000ML 1,000 ML IV SCH ×3 (09:15→21:20)
[2018-07-07] MEDS: HumaLOG INSULIN (NovoLOG) PER UNIT SC SCH ×4 (09:58→20:16)
--- NOTE | 2018-07-07 12:09 | IPNPDOC ---
Subjective Date Seen The patient was seen on 07/07/18. Subjective Chief Complaint/HPI Patient lying in bed as I entered the room. She states she is not happy being on a full liquid diet. She is stating she wants to go home. She reports abdominal pain persists and she wants something to be done about her pain Constitutional: Denies: Chills, Fever Pulmonary: Denies: Dyspnea, Cough Cardiovascular: Denies: Chest Pain, Palpitations Gastrointestinal: Reports: Nausea, Abdominal Pain; Denies: Vomiting, Diarrhea Psych: Reports: Mood Normal Objective Physical Examination General Exam: Positive: Alert, Cooperative, No Acute Distress Eye Exam: Positive: PERRLA; Negative: Sclera icteric ENT Exam: Positive: Atraumatic; Negative: Mucous membr. moist/pink (mucous membranes are dry but not cracked or furrowed) Neck Exam: Positive: Supple Chest Exam: Positive: Clear to auscultation, Normal air movement; Negative: Rales, Rhonchi Heart Exam: Positive: Rate Normal, Normal S1, Normal S2 Abdomen Exam: Positive: BS Hyperactive, Tenderness (Diffuse), Other (mildly distended. Pain is more diffuse and jorge-umbillical); Negative: Mass Extremity Exam: Negative: Edema Psych Exam: Positive: Mental status NL, Memory Intact, Oriented x 3 Assessment /Plan Problems (1) Abdominal pain Status: Acute Discussed With: Nurse, Patient Problem Text: 07/07/18: Abdominal pain persists. Per nursing staff, patient consumed [place] food last evening which exacerbated her pain. Patient denies this. I encouraged patient to follow the recommended liquid diet 07/06 Persistent abd pain. 07/05 Patient continues to have abdominal pain. Is being managed with Dilaudid. Continue to treat abdominal pain. Encourage patient to use medication when need it. Dilaudid IV. Morphine was not helping as much, wore off. (2) Hypokalemia Status: Acute Response to Treatment: Improving Discussed With: Patient Problem Text: 07/07/18: 3.6 today. She remains on IVF with K. Patient is drinking and eating well. We may want to consider reducing or d/c her IVF. I will discuss with attending. 07/05 K 3.3 today. Continue to give K in IV fluids. One time dose 20 meq PO potassium. 07/03 K improved yesterday. Repeating BMP today. IV fluids with K. May adjust if needed. 07/02 K was 2.6 this morning. Added K to IV fluids and gave K runs. recheck at 1700. (3) Enteritis Status: Acute Problem Text: 07/07/18: Steroids are being tapered. 07/05 Consider tapering IV steroid tomorrow. Also continuing oral steroids for now. If patient's symptoms worsen can increase. 07/02 Continue IV methylprenisolone to calm down inflammation. If able to calm down pain Dr. Beltran will consider upper endoscopy for patient while admitted. Also continue oral steroids at this time. 07/01 Labs pending. GI consulted, appreciate Dr. Beltran's assistance. Continue IV steroids and IV pain medication. 06/30 Per Rheumatology, labs pending. Will call and discuss case with GI, Dr. Beltran, who she was referred outpatient. Lost IV access so will put in midline. 06/29: I have added Entocort to her regimen to try to deliver steroid directly to the inflamed bowel. I have consulted Dr. Phillip to evaluate whether this is lupus related enteritis. If that does not seem promising then, I will look at consulting GI tomorrow (no coverage today). I changed the morphine from 2mg Q3h to IM hydromorphone 0.5mg q3h prn for a slight increase in intensity of the regimen, but also an attempt to make the pain control last longer. 06/28: CT showed some evidence of enteritis. No other signs of infection, no fever, WBC normal. Patient noted pain is still intense but better enough to try some sips of water. On IV zofran if needed and IV pantoprazole. Pain being controlled with IV morphine as patient cannot tolerate home oral pain medications. Differential includes gastroparesis, lupus enteritis, diabetes, other infectious cause. 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 (4) Median arcuate ligament syndrome Problem Text: Noted on CT scan. May be contributing to pain. May consider treating outpatient. (5) Thrush Problem Text: Some oral thrush was noted. Using Nystain SS q6. (6) SLE (systemic lupus erythematosus related syndrome) Status: Chronic Problem Text: 07/05 Labs for IBD and celiac were negative. 06/30 Putting in midline today. Will give IV methylpednisolone when that is placed. Labs pending. 06/29 Currently on IV methylprednsiolone at this time. Unfortunately, she has lost IV access. If it can't be reestablished in the next couple shifts, then will consider a mid-line tomorrow. Holding home medication, including Afinitor, at this time. (7) Type 2 diabetes mellitus Onset Date: ~ 07/17/2015 Status: Chronic Problem Text: 06/30 Continue to monitor glucose. 06/29 Will add 10 units of basal insulin to her regimen starting tomorrow as she will only get worse while on steroids. Plan/VTE VTE Prophylaxis Ordered?: Yes (Teds and squentials) VS, I&O, 24H, Fishbone Vital Signs/I&O Vital Signs Date Time Temp Pulse Resp B/P (MAP) Pulse Ox O2 Delivery O2 Flow Rate FiO2 07/07/18 10:09 15 07/06/18 22:00 99.4 69 150/71 (97) 98 I&O- Last 24 Hours up to 6 AM 07/07/18 06:00 Intake Total 2800 ml Output Total 975 ml Balance 1825 ml Laboratory Data 24H LABS Laboratory Tests 2 07/06/18 16:25: Bedside Glucose (Misc Panel) 139H 07/06/18 20:42: Bedside Glucose (Misc Panel) 190H 07/07/18 06:13: Anion Gap 6L, Glomerular Filtration Rate > 60.0, Blood Urea Nitrogen 9, Creatinine 0.76, Sodium Level 142, Potassium Level 3.6, Chloride Level 109H, Carbon Dioxide Level 27, Calcium Level 7.9L 07/07/18 07:57: 07/07/18 11:35: Bedside Glucose (Misc Panel) 166H CBC/BMP Laboratory Tests 07/07/18 06:13 Calcium Level 7.9 L Microbiology Microbiology 07/02/18 Stool Lactoferrin - Final, Complete 06/30/18 Stool Occult Blood (KINJAL) - Final, Complete 06/28/18 Gastrointestinal Tract Panel (PCR) - Final, Complete POLO MCKEON Jul 07, 2018 12:09
[2018-07-07 13:45] VITALS: BP 142/73
[2018-07-07] MEDS ORDERED: MIRALAX *UNIT DOSE* 17GM PACKET PO ONE (15:00)
[2018-07-07 22:00] VITALS: BP 149/71
[2018-07-08] MEDS: HYDROMORPHONE HCL 0.5 MG/ 0.5 ML SYRINGE (J1170 PER 1) IV PRN ×5 (02:54→19:50)
[2018-07-08] MEDS ORDERED: MIRALAX *UNIT DOSE* 17GM PACKET PO ONE (05:00)
[2018-07-08] MEDS: NYSTATIN 500,000 U/5 ML SUSP UDC SS SCH ×3 (05:12→18:07)
[2018-07-08] MEDS: KCL 20MEQ in NS 1000ML 1,000 ML IV SCH ×3 (05:18→22:20)
[2018-07-08] MEDS: SODIUM CHLORIDE 0.9% INJ 10 ML SYR IV SCH ×2 (05:18→18:08)
[2018-07-08 06:00] VITALS: BP 139/67
[2018-07-08 06:21] LABS: HEMATOCRIT 29.8 % (36.0-47.0); HEMOGLOBIN 9.2 g/dl (12.0-15.5); MEAN CORPUSCULAR HEMOGLOBIN 24.3 pg (27.0-33.0); MEAN CORPUSCULAR HGB CONC 30.9 g/dl (32.0-36.5); MEAN CORPUSCULAR VOLUME 78.6 fl (80.0-96.0); PLATELET COUNT, AUTOMATED 326 10^3/uL (150-450); RED BLOOD COUNT 3.79 10^6/uL (4.00-5.40); WHITE BLOOD COUNT 12.4 10^3/uL (4.0-10.0)
[2018-07-08 06:39] LABS: ALBUMIN 2.9 GM/DL (3.2-5.2); ALT/SGPT 31 U/L (12-78); BILIRUBIN,TOTAL 0.5 MG/DL (0.2-1.0); BLOOD UREA NITROGEN 5 MG/DL (7-18); CALCIUM LEVEL 8.1 MG/DL (8.5-10.1); CARBON DIOXIDE LEVEL 25 MEQ/L (21-32); CHLORIDE LEVEL 108 MEQ/L (98-107); CREATININE FOR GFR 0.89 MG/DL (0.55-1.30); GLOMERULAR FILTRATION RATE > 60.0 (>51); GLUCOSE, FASTING 141 MG/DL (70-100); POTASSIUM SERUM 3.4 MEQ/L (3.5-5.1); SODIUM LEVEL 141 MEQ/L (136-145); TOTAL PROTEIN 6.6 GM/DL (6.4-8.2)
[2018-07-08] MEDS ORDERED: PROPOFOL 500 MG/50 ML VIAL As Ordered ONE (06:52)
[2018-07-08] MEDS ORDERED: LIDOCAINE 2% INJ 100 MG/5 ML SDV (FOR ANES.) As Ordered ONE (06:56)
[2018-07-08] MEDS: HumaLOG INSULIN (NovoLOG) PER UNIT SC SCH ×4 (07:20→21:00)
[2018-07-08] MEDS: LANSOPRAZOLE SUSPENSION 30 MG/10 ML ORAL SYRINGE (FIRST-LANSOPRAZOLE) PO SCH (09:32)
[2018-07-08] MEDS: BUDESONIDE EC 3 MG CAP (ENTOCORT EC) PO SCH (09:32)
[2018-07-08] MEDS: methylPREDNISolone INJ 40 MG/1 ML VIAL (J2920) IV SCH (09:33)
[2018-07-08] MEDS: LEVEMIR (INSULIN DETEMIR) 1 UNITS/0.01ML SC SCH (09:33)
[2018-07-08 14:00] VITALS: BP 141/67
--- NOTE | 2018-07-08 16:50 | ROOR ---
Patient Name: Taylor Jorgensen Procedure Date: 07/08/2018 3:49 PM Date of : 1960 Age: 58 Gender: Female Note Status: Finalized Procedure: Upper GI endoscopy Indications: Epigastric abdominal pain, Abdominal pain in the left lower quadrant, Failure to respond to medical treatment Providers: Gabe GENAO MD Referring MD: SHARON ANDERS MD, 2. Inpatient 2. Inpatient Requesting Provider: Medicines: Monitored Anesthesia Care Complications: No immediate complications. Procedure: Pre-Anesthesia Assessment: - The heart rate, respiratory rate, oxygen saturations, blood pressure, adequacy of pulmonary ventilation, and response to care were monitored throughout the procedure. The Endoscope was introduced through the mouth, and advanced to the second part of duodenum. The upper GI endoscopy was accomplished without difficulty. The patient tolerated the procedure well. Findings: The esophagus was normal. The stomach was normal. The examined duodenum was normal. Impression: - Normal esophagus. - Normal stomach. - Normal examined duodenum. - No specimens collected. Recommendation: - Perform a colonoscopy today. Gabe Genao MD Gabe GENAO MD 07/08/2018 4:50:24 PM This report has been signed electronically. Number of Addenda: 0 Note Initiated On: 07/08/2018 3:49 PM Estimated Blood Loss: Estimated blood loss: none.
[2018-07-08] MEDS ORDERED: LABETALOL HCL 100 MG/20 ML VIAL As Ordered ONE (17:19)
[2018-07-08] MEDS ORDERED: LIDOCAINE 2% MDV 20 ML VIAL As Ordered ONE (17:19)
[2018-07-08] MEDS ORDERED: PROPOFOL 200 MG/20 ML VIAL As Ordered ONE (17:19)
--- NOTE | 2018-07-08 18:10 | ROOR ---
Patient Name: Taylor Jorgensen Procedure Date: 07/08/2018 3:47 PM Date of : 1960 Age: 58 Gender: Female Note Status: Finalized Procedure: Colonoscopy Indications: Epigastric abdominal pain, Abdominal pain in the left lower quadrant, Abnormal CT of the GI tract Providers: Gabe GENAO MD Referring MD: SHARON ANDERS MD, 2. Inpatient 2. Inpatient Requesting Provider: Medicines: Monitored Anesthesia Care Complications: No immediate complications. Procedure: Pre-Anesthesia Assessment: - The heart rate, respiratory rate, oxygen saturations, blood pressure, adequacy of pulmonary ventilation, and response to care were monitored throughout the procedure. The Colonoscope was introduced through the anus and advanced to the cecum, identified by appendiceal orifice and ileocecal valve. The colonoscopy was somewhat difficult due to inadequate bowel prep. Successful completion of the procedure was aided by lavage. The patient tolerated the procedure well. The quality of the bowel preparation was suboptimal. Findings: The perianal and digital rectal examinations were normal. The colon (entire examined portion) was redundant. The exam was otherwise without abnormality. Impression: - Preparation of the colon was suboptimal after extensive lavage. - Redundant colon. - The colon examination was otherwise normal. - Unable to intubate terminal ileum due to poor visualisation.--will get CT enterography tomorrow - No specimens collected. Recommendation: - Repeat colonoscopy as outpatient in future for screening colonoscopy because the bowel preparation today was suboptimal. - Perform a computed tomographic (CT scan) enterography tomorrow. Gabe Genao MD Gabe GENAO MD 07/08/2018 6:10:00 PM This report has been signed electronically. Number of Addenda: 0 Note Initiated On: 07/08/2018 3:47 PM Estimated Blood Loss: Estimated blood loss: none.
--- NOTE | 2018-07-08 20:31 | IPNPDOC ---
Subjective Date Seen The patient was seen on 07/08/18. Subjective Chief Complaint/HPI Patient has the same amount of pain as previous. Would like to be able to go home. Still wants her pain to be resolved. Constitutional: Denies: Chills, Fever Pulmonary: Denies: Dyspnea Cardiovascular: Denies: Chest Pain Objective Physical Examination General Exam: Positive: Alert, Cooperative, No Acute Distress Eye Exam: Positive: PERRLA; Negative: Sclera icteric ENT Exam: Positive: Atraumatic; Negative: Mucous membr. moist/pink (mucous membranes are dry but not cracked or furrowed) Neck Exam: Positive: Supple Chest Exam: Positive: Clear to auscultation, Normal air movement; Negative: Rales, Rhonchi Heart Exam: Positive: Rate Normal, Normal S1, Normal S2 Abdomen Exam: Positive: BS Hyperactive, Tenderness (Diffuse), Other (mildly distended. Pain is more diffuse and jorge-umbillical); Negative: Mass Extremity Exam: Negative: Edema Psych Exam: Positive: Mental status NL, Memory Intact, Oriented x 3 Assessment /Plan Assessment Colonoscopy with incomplete prep, plan CT enterography tomorrow, per Reindl. Donaldson iscussed with patient. -- CDT Problems (1) Abdominal pain Status: Acute Discussed With: Nurse, Patient Problem Text: 07/08 Pain persists. Manageable with IV pain meds. Continue to follow diet. 07/07/18: Abdominal pain persists. Per nursing staff, patient consumed [place] food last evening which exacerbated her pain. Patient denies this. I encouraged patient to follow the recommended liquid diet 07/06 Persistent abd pain. 07/05 Patient continues to have abdominal pain. Is being managed with Dilaudid. Continue to treat abdominal pain. Encourage patient to use medication when need it. Dilaudid IV. Morphine was not helping as much, wore off. (2) Hypokalemia Status: Acute Response to Treatment: Improving Discussed With: Patient Problem Text: 07/08 3.4 today. Continue with K daily. Repeat level tomorrow. 07/07/18: 3.6 today. She remains on IVF with K. Patient is drinking and eating well. We may want to consider reducing or d/c her IVF. I will discuss with attending. 07/05 K 3.3 today. Continue to give K in IV fluids. One time dose 20 meq PO potassium. 07/03 K improved yesterday. Repeating BMP today. IV fluids with K. May adjust if needed. 07/02 K was 2.6 this morning. Added K to IV fluids and gave K runs. recheck at 1700. (3) Enteritis Status: Acute Problem Text: 07/08 Will consider taper steroid tomorrow. 07/07/18: Steroids are being tapered. 07/05 Consider tapering IV steroid tomorrow. Also continuing oral steroids for now. If patient's symptoms worsen can increase. 07/02 Continue IV methylprenisolone to calm down inflammation. If able to calm down pain Dr. Beltran will consider upper endoscopy for patient while admitted. Also continue oral steroids at this time. 07/01 Labs pending. GI consulted, appreciate Dr. Beltran's assistance. Continue IV steroids and IV pain medication. 06/30 Per Rheumatology, labs pending. Will call and discuss case with GI, Dr. Beltran, who she was referred outpatient. Lost IV access so will put in midline. 06/29: I have added Entocort to her regimen to try to deliver steroid directly to the inflamed bowel. I have consulted Dr. Phillip to evaluate whether this is lupus related enteritis. If that does not seem promising then, I will look at consulting GI tomorrow (no coverage today). I changed the morphine from 2mg Q3h to IM hydromorphone 0.5mg q3h prn for a slight increase in intensity of the regimen, but also an attempt to make the pain control last longer. 06/28: CT showed some evidence of enteritis. No other signs of infection, no fever, WBC normal. Patient noted pain is still intense but better enough to try some sips of water. On IV zofran if needed and IV pantoprazole. Pain being controlled with IV morphine as patient cannot tolerate home oral pain medications. Differential includes gastroparesis, lupus enteritis, diabetes, other infectious cause. 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 (4) Median arcuate ligament syndrome Problem Text: Noted on CT scan. May be contributing to pain. May consider treating outpatient. (5) Thrush Problem Text: Some oral thrush was noted. Using Nystain SS q6. (6) SLE (systemic lupus erythematosus related syndrome) Status: Chronic Problem Text: 07/05 Labs for IBD and celiac were negative. 06/30 Putting in midline today. Will give IV methylpednisolone when that is placed. Labs pending. 06/29 Currently on IV methylprednsiolone at this time. Unfortunately, she has lost IV access. If it can't be reestablished in the next couple shifts, then will consider a mid-line tomorrow. Holding home medication, including Afinitor, at this time. (7) Type 2 diabetes mellitus Onset Date: ~ 07/17/2015 Status: Chronic Problem Text: 06/30 Continue to monitor glucose. 06/29 Will add 10 units of basal insulin to her regimen starting tomorrow as she will only get worse while on steroids. Plan/VTE VTE Prophylaxis Ordered?: Yes (Teds and squentials) VS, I&O, 24H, Fishbone Vital Signs/I&O Vital Signs Date Time Temp Pulse Resp B/P (MAP) Pulse Ox O2 Delivery O2 Flow Rate FiO2 07/08/18 19:50 20 07/08/18 14:00 98.5 70 141/67 (91) 95 I&O- Last 24 Hours up to 6 AM 07/08/18 06:00 Intake Total 1490 ml Output Total 1800 ml Balance -310 ml Laboratory Data 24H LABS Laboratory Tests 2 07/08/18 05:44: Nucleated Red Blood Cells % (auto) 0.0, Anion Gap 8, Glomerular Filtration Rate > 60.0, Blood Urea Nitrogen 5L, Creatinine 0.89, Sodium Level 141, Potassium Level 3.4L, Chloride Level 108H, Carbon Dioxide Level 25, Calcium Level 8.1L, Aspartate Amino Transf (AST/SGOT) 21, Alanine Aminotransferase (ALT/SGPT) 31, Alkaline Phosphatase 89, Total Bilirubin 0.5, Total Protein 6.6, Albumin 2.9L, Albumin/Globulin Ratio 0.78L 07/08/18 11:28: Bedside Glucose (Misc Panel) 122H 07/08/18 18:01: Bedside Glucose (Misc Panel) 150H 07/08/18 18:13: Bedside Glucose (Misc Panel) 156H CBC/BMP Laboratory Tests 07/08/18 05:44 Red Blood Count 3.79 L, Mean Corpuscular Volume 78.6 L, Mean Corpuscular Hemoglobin 24.3 L, Mean Corpuscular Hemoglobin Concent 30.9 L, Red Cell Distribution Width 17.7 H, Calcium Level 8.1 L, Aspartate Amino Transf (AST/SGOT) 21, Alanine Aminotransferase (ALT/SGPT) 31, Alkaline Phosphatase 89, Total Bilirubin 0.5, Total Protein 6.6, Albumin 2.9 L Microbiology Microbiology 07/02/18 Stool Lactoferrin - Final, Complete 06/30/18 Stool Occult Blood (KINJAL) - Final, Complete 06/28/18 Gastrointestinal Tract Panel (PCR) - Final, Complete GME ATTESTATION GME ATTESTATION My faculty preceptor for this patient encounter was physically present during the encounter and was fully available. All aspects of the patient interview, examination, medical decision making process, and medical care plan development were reviewed and approved by the faculty preceptor. The faculty preceptor is aware and concurs with the plan as stated in the body of this note and will attest to such by his/her cosignature. DALE PRICE DO Jul 08, 2018 20:31 MELL PETERSEN DO Jul 09, 2018 01:38
[2018-07-08] MEDS: LORazepam 2 MG TAB PO PRN (21:28)
[2018-07-08 22:00] VITALS: BP 143/77
[2018-07-09] MEDS: NYSTATIN 500,000 U/5 ML SUSP UDC SS SCH ×4 (00:52→18:46)
[2018-07-09] MEDS: HYDROMORPHONE HCL 0.5 MG/ 0.5 ML SYRINGE (J1170 PER 1) IV PRN ×5 (05:59→22:06)
[2018-07-09 06:00] VITALS: BP 143/75
[2018-07-09] MEDS: SODIUM CHLORIDE 0.9% INJ 10 ML SYR IV SCH ×2 (06:00→17:41)
[2018-07-09 06:03] LABS: HEMATOCRIT 31.1 % (36.0-47.0); HEMOGLOBIN 9.6 g/dl (12.0-15.5); MEAN CORPUSCULAR HEMOGLOBIN 24.2 pg (27.0-33.0); MEAN CORPUSCULAR HGB CONC 30.9 g/dl (32.0-36.5); MEAN CORPUSCULAR VOLUME 78.5 fl (80.0-96.0); PLATELET COUNT, AUTOMATED 299 10^3/uL (150-450); RED BLOOD COUNT 3.96 10^6/uL (4.00-5.40); WHITE BLOOD COUNT 12.2 10^3/uL (4.0-10.0)
[2018-07-09 06:16] LABS: ALBUMIN 2.4 GM/DL (3.2-5.2); ALT/SGPT 29 U/L (12-78); BILIRUBIN,TOTAL 0.5 MG/DL (0.2-1.0); BLOOD UREA NITROGEN 4 MG/DL (7-18); CALCIUM LEVEL 7.8 MG/DL (8.5-10.1); CARBON DIOXIDE LEVEL 25 MEQ/L (21-32); CHLORIDE LEVEL 109 MEQ/L (98-107); CREATININE FOR GFR 0.72 MG/DL (0.55-1.30); GLOMERULAR FILTRATION RATE > 60.0 (>51); GLUCOSE, FASTING 140 MG/DL (70-100); POTASSIUM SERUM 3.6 MEQ/L (3.5-5.1); SODIUM LEVEL 142 MEQ/L (136-145); TOTAL PROTEIN 6.1 GM/DL (6.4-8.2)
[2018-07-09] MEDS: LORazepam 2 MG TAB PO PRN (07:10)
[2018-07-09] MEDS: LEVEMIR (INSULIN DETEMIR) 1 UNITS/0.01ML SC SCH (09:35)
[2018-07-09] MEDS: HumaLOG INSULIN (NovoLOG) PER UNIT SC SCH ×4 (09:36→20:37)
[2018-07-09] MEDS ORDERED: GLUCAGON FOR INJ 1 MG VIAL (J1610) As Ordered ONE (10:00)
[2018-07-09] MEDS ORDERED: VoLumen 0.1% SUSPENSION 450ML BOTTLE As Ordered ONE (10:00)
[2018-07-09] MEDS ORDERED: ISOVUE-370 76% 100ML VIAL (Q9967) As Ordered ONE (10:01)
[2018-07-09 14:00] VITALS: BP 128/70
[2018-07-09] MEDS: methylPREDNISolone INJ 40 MG/1 ML VIAL (J2920) IV SCH (14:13)
[2018-07-09] MEDS: LANSOPRAZOLE SUSPENSION 30 MG/10 ML ORAL SYRINGE (FIRST-LANSOPRAZOLE) PO SCH (14:13)
[2018-07-09] MEDS: BUDESONIDE EC 3 MG CAP (ENTOCORT EC) PO SCH (14:14)
[2018-07-09] MEDS: KCL 20MEQ in NS 1000ML 1,000 ML IV SCH ×2 (14:30→15:00)
--- NOTE | 2018-07-09 18:37 | REP ---
CT ENTEROGRAPHY: 07/12/2018. Comparison: CTA angiogram abdomen to 07/01/2018 CT 06/27/2018. Technique: Our CT enterography protocol was utilized with a total of 1350 ml of volume total in three doses of 450 ml over the 1 hour prior to the examination. 0.6 mg IV glucagon prior to IV contrast followed by a bolus 100 ml Isovue 370 at 4.5 ml/sec. Arterial and venous imaging was then performed. Coronal sagittal standard reconstructions and MIP reformatting provided. Clinical history: Small bowel abnormality on previous CT evaluate the ileum. Findings: CT abdomen: The heart enlarged. Some left ventricular enlargement and no pericardial thickening or effusion. A dual lead pacer. No hiatal hernia. Liver shows a small cyst right hepatic lobe and left hepatic lobe is mildly prominent. There is no hepatosplenomegaly, biliary dilatation nor adjacent ascites. Stomach with small amount retained fluid. Clips from prior cholecystectomy noted. Pancreas unremarkable. Adrenal glands normal. Extrarenal pelves bilaterally without gross hydronephrosis. There is no mass or cyst in the kidneys. No renal or ureteral stone. On the venous image set, small bowel loops proximal and distal portion of jejunum and ileum respectively show thickening of the wall. There is some mild haziness of the mesenteric fat suggesting edema. There are trace areas with fluid particularly around the terminal ileum and distal ileum near the cecum. There is certainly more fluid present there then air was 8 days ago. Appendix is seen and normal. The cecum, right colon, hepatic flexure and proximal transverse colon were intact from mid transverse colon through the splenic flexure left colon to the sigmoid. There is collapse of the colon and thickening of wall suggesting some degree of colitis. Some minor stranding in the pericolonic fat. All of this suggests inflammatory bowel disease such as Crohn's colitis and ileitis. I do not see perforation or free air, ileus or abscess. Bones are unchanged. No interval change in the vascularity. Scattered small mesenteric nodes are present. No aortic aneurysm. No ventral hernia. CT pelvis: Free fluid in the deep pelvis increase from the CT 8 days ago. Much of this is along the loops of distal ileum, terminal ileum and into the right side of the pelvis. Bladder only partially filled. There is no ureteral dilatation or stone and no bladder wall thickening, stone or mass. No ventral or inguinal hernia. Impression: 1. Terminal ileum, distal ileum. Some of proximal jejunal loops and the colon from the mid transverse colon through to the sigmoid shows wall thickening. Some mild stranding consistent with colitis. Findings most consistent with inflammatory bowel process such as Crohn's disease. The two solid organs, unchanged. Appendix normal. Gallbladder absent. Vascularity unchanged. Electronically Signed by Jones Fuentes MD 07/09/2018 08:00 P
--- NOTE | 2018-07-09 20:02 | IPNPDOC ---
Subjective Date Seen The patient was seen on 07/09/18. Subjective Chief Complaint/HPI Patient notes pain is about the same. Has been tolerating liquid diet. No vomiting but has nausea. Constitutional: Denies: Chills, Fever Cardiovascular: Denies: Chest Pain Objective Physical Examination General Exam: Positive: Alert, Cooperative, No Acute Distress Eye Exam: Positive: PERRLA; Negative: Sclera icteric ENT Exam: Positive: Atraumatic Neck Exam: Positive: Supple Chest Exam: Positive: Clear to auscultation, Normal air movement; Negative: Rales, Rhonchi Heart Exam: Positive: Rate Normal, Normal S1, Normal S2 Abdomen Exam: Positive: BS Hyperactive, Tenderness (Diffuse), Other (mildly distended. Pain is more diffuse and jorge-umbillical); Negative: Mass Extremity Exam: Negative: Edema Psych Exam: Positive: Mental status NL, Memory Intact, Oriented x 3 Assessment /Plan Problems (1) Abdominal pain Status: Acute Discussed With: Nurse, Patient Problem Text: 07/09 Pain continues. Consider switch to oral pain medication tomorrow. 07/07/18: Abdominal pain persists. Per nursing staff, patient consumed [place] food last evening which exacerbated her pain. Patient denies this. I encouraged patient to follow the recommended liquid diet 07/06 Persistent abd pain. 07/05 Patient continues to have abdominal pain. Is being managed with Dilaudid. Continue to treat abdominal pain. Encourage patient to use medication when need it. Dilaudid IV. Morphine was not helping as much, wore off. (2) Hypokalemia Status: Acute Response to Treatment: Improving Discussed With: Patient Problem Text: 07/09 Repeat K level tomorrow. Monitor. 07/07/18: 3.6 today. She remains on IVF with K. Patient is drinking and eating well. We may want to consider reducing or d/c her IVF. I will discuss with attending. 07/05 K 3.3 today. Continue to give K in IV fluids. One time dose 20 meq PO potassium. 07/03 K improved yesterday. Repeating BMP today. IV fluids with K. May adjust if needed. 07/02 K was 2.6 this morning. Added K to IV fluids and gave K runs. recheck at 1700. (3) Enteritis Status: Acute Problem Text: 07/09 Tapered steroids again today. Monitor progress tomorrow. Con medical service representative changing liquid diet to soft if no vomiting. Also consider cutting back on IV fluids. 07/07/18: Steroids are being tapered. 07/05 Consider tapering IV steroid tomorrow. Also continuing oral steroids for now. If patient's symptoms worsen can increase. 07/02 Continue IV methylprenisolone to calm down inflammation. If able to calm down pain Dr. Beltran will consider upper endoscopy for patient while admitted. Also continue oral steroids at this time. 07/01 Labs pending. GI consulted, appreciate Dr. Beltran's assistance. Continue IV steroids and IV pain medication. 06/30 Per Rheumatology, labs pending. Will call and discuss case with GI, Dr. Beltran, who she was referred outpatient. Lost IV access so will put in midline. 06/29: I have added Entocort to her regimen to try to deliver steroid directly to the inflamed bowel. I have consulted Dr. Phillip to evaluate whether this is lupus related enteritis. If that does not seem promising then, I will look at consulting GI tomorrow (no coverage today). I changed the morphine from 2mg Q3h to IM hydromorphone 0.5mg q3h prn for a slight increase in intensity of the regimen, but also an attempt to make the pain control last longer. 06/28: CT showed some evidence of enteritis. No other signs of infection, no fever, WBC normal. Patient noted pain is still intense but better enough to try some sips of water. On IV zofran if needed and IV pantoprazole. Pain being controlled with IV morphine as patient cannot tolerate home oral pain medications. Differential includes gastroparesis, lupus enteritis, diabetes, other infectious cause. 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 (4) Median arcuate ligament syndrome Problem Text: Noted on CT scan. May be contributing to pain. May consider treating outpatient. (5) Thrush Problem Text: Some oral thrush was noted. Using Nystain SS q6. (6) SLE (systemic lupus erythematosus related syndrome) Status: Chronic Problem Text: 07/05 Labs for IBD and celiac were negative. 06/30 Putting in midline today. Will give IV methylpednisolone when that is placed. Labs pending. 06/29 Currently on IV methylprednsiolone at this time. Unfortunately, she has lost IV access. If it can't be reestablished in the next couple shifts, then will consider a mid-line tomorrow. Holding home medication, including Afinitor, at this time. (7) Type 2 diabetes mellitus Onset Date: ~ 07/17/2015 Status: Chronic Problem Text: 07/09 Continue to monitor. 06/30 Continue to monitor glucose. 06/29 Will add 10 units of basal insulin to her regimen starting tomorrow as she will only get worse while on steroids. Plan/VTE VTE Prophylaxis Ordered?: Yes (Teds and squentials) VS, I&O, 24H, Fishbone Vital Signs/I&O Vital Signs Date Time Temp Pulse Resp B/P (MAP) Pulse Ox O2 Delivery O2 Flow Rate FiO2 07/09/18 19:38 16 07/09/18 14:00 97.4 76 128/70 (89) 97 I&O- Last 24 Hours up to 6 AM 07/09/18 06:00 Intake Total 1120 ml Output Total 850 ml Balance 270 ml Laboratory Data 24H LABS Laboratory Tests 2 07/08/18 21:15: Bedside Glucose (Misc Panel) 165H 07/09/18 05:42: Nucleated Red Blood Cells % (auto) 0.0, Anion Gap 8, Glomerular Filtration Rate > 60.0, Blood Urea Nitrogen 4L, Creatinine 0.72, Sodium Level 142, Potassium Level 3.6, Chloride Level 109H, Carbon Dioxide Level 25, Calcium Level 7.8L, Aspartate Amino Transf (AST/SGOT) 21, Alanine Aminotransferase (ALT/SGPT) 29, Alkaline Phosphatase 74, Total Bilirubin 0.5, Total Protein 6.1L, Albumin 2.4L, Albumin/Globulin Ratio 0.65L 07/09/18 12:07: Bedside Glucose (Misc Panel) 89 07/09/18 16:51: Bedside Glucose (Misc Panel) 92 CBC/BMP Laboratory Tests 07/09/18 05:42 Red Blood Count 3.96 L, Mean Corpuscular Volume 78.5 L, Mean Corpuscular Hemoglobin 24.2 L, Mean Corpuscular Hemoglobin Concent 30.9 L, Red Cell Distribution Width 18.4 H, Calcium Level 7.8 L, Aspartate Amino Transf (AST/SGOT) 21, Alanine Aminotransferase (ALT/SGPT) 29, Alkaline Phosphatase 74, Total Bilirubin 0.5, Total Protein 6.1 L, Albumin 2.4 L Microbiology Microbiology 07/02/18 Stool Lactoferrin - Final, Complete 06/30/18 Stool Occult Blood (KINJAL) - Final, Complete GME ATTESTATION GME ATTESTATION My faculty preceptor for this patient encounter was physically present during the encounter and was fully available. All aspects of the patient interview, examination, medical decision making process, and medical care plan development were reviewed and approved by the faculty preceptor. The faculty preceptor is aware and concurs with the plan as stated in the body of this note and will attest to such by his/her cosignature. ATTENDING NOTE Agree with resident's note. We await read on CT enterography. Patient complains of difficulty sleeping, and I will hold her Ambien tonight and try hydroxyzine. -- DALE RUIZ DO Jul 09, 2018 20:01 MELL PETERSEN DO Jul 10, 2018 00:12
[2018-07-09] MEDS: ONDANSETRON 4 MG ORAL DISINTEGRATING TAB (Q0162 PER 1MG) PO PRN (20:10)
[2018-07-09] MEDS ORDERED: hydrOXYzine 25 MG TAB PO SCH (21:00)
[2018-07-09 22:00] VITALS: BP 132/75
[2018-07-10 00:06] LABS: CYTOMEGALOVIRUS IgM ANTIBODY <30.0 AU/mL (0.0-29.9); HSV TYPE I IgM AB <1:10 titer (<1:10); HSV TYPE II IgM ABY <1:10 titer (<1:10)
[2018-07-10] MEDS: NYSTATIN 500,000 U/5 ML SUSP UDC SS SCH ×2 (01:08→06:10)
[2018-07-10] MEDS: KCL 20MEQ in NS 1000ML 1,000 ML IV SCH ×2 (01:09→12:03)
[2018-07-10] MEDS: HYDROMORPHONE HCL 0.5 MG/ 0.5 ML SYRINGE (J1170 PER 1) IV PRN ×3 (01:09→08:18)
[2018-07-10 05:44] LABS: HEMATOCRIT 27.9 % (36.0-47.0); HEMOGLOBIN 8.5 g/dl (12.0-15.5); MEAN CORPUSCULAR HEMOGLOBIN 23.5 pg (27.0-33.0); MEAN CORPUSCULAR HGB CONC 30.5 g/dl (32.0-36.5); MEAN CORPUSCULAR VOLUME 77.3 fl (80.0-96.0); PLATELET COUNT, AUTOMATED 291 10^3/uL (150-450); RED BLOOD COUNT 3.61 10^6/uL (4.00-5.40); WHITE BLOOD COUNT 10.5 10^3/uL (4.0-10.0)
[2018-07-10 06:00] VITALS: BP 138/66
[2018-07-10] MEDS: SODIUM CHLORIDE 0.9% INJ 10 ML SYR IV SCH (06:00)
[2018-07-10 06:05] LABS: ALBUMIN 2.7 GM/DL (3.2-5.2); ALT/SGPT 27 U/L (12-78); BILIRUBIN,TOTAL 0.6 MG/DL (0.2-1.0); BLOOD UREA NITROGEN 7 MG/DL (7-18); CARBON DIOXIDE LEVEL 26 MEQ/L (21-32); CHLORIDE LEVEL 104 MEQ/L (98-107); CREATININE FOR GFR 0.85 MG/DL (0.55-1.30); GLOMERULAR FILTRATION RATE > 60.0 (>51); GLUCOSE, FASTING 180 MG/DL (70-100); POTASSIUM SERUM 4.1 MEQ/L (3.5-5.1); SODIUM LEVEL 141 MEQ/L (136-145); TOTAL PROTEIN 6.2 GM/DL (6.4-8.2)
[2018-07-10] MEDS: methylPREDNISolone INJ 40 MG/1 ML VIAL (J2920) IV SCH (08:19)
[2018-07-10] MEDS: LANSOPRAZOLE SUSPENSION 30 MG/10 ML ORAL SYRINGE (FIRST-LANSOPRAZOLE) PO SCH (08:20)
[2018-07-10] MEDS: BUDESONIDE EC 3 MG CAP (ENTOCORT EC) PO SCH (08:21)
[2018-07-10] MEDS: LEVEMIR (INSULIN DETEMIR) 1 UNITS/0.01ML SC SCH (08:21)
[2018-07-10] MEDS: HumaLOG INSULIN (NovoLOG) PER UNIT SC SCH ×2 (08:43→13:44)
[2018-07-10 10:16] VITALS: BP 135/69
[2018-07-10] MEDS ORDERED: oxyCODONE 5MG TAB PO PRN (11:45)
--- NOTE | 2018-07-10 12:00 | IPNPDOC ---
Subjective Date Seen The patient was seen on 07/10/18. Objective Physical Examination General Exam: Positive: Alert, Cooperative, No Acute Distress Eye Exam: Positive: PERRLA; Negative: Sclera icteric ENT Exam: Positive: Atraumatic Neck Exam: Positive: Supple Chest Exam: Positive: Clear to auscultation, Normal air movement; Negative: Rales, Rhonchi Heart Exam: Positive: Rate Normal, Normal S1, Normal S2 Abdomen Exam: Positive: BS Hyperactive, Tenderness (Diffuse), Other (mildly d istended. Pain is more diffuse and jorge-umbillical); Negative: Mass Extremity Exam: Negative: Edema Psych Exam: Positive: Mental status NL, Memory Intact, Oriented x 3 Assessment /Plan Assessment Nurse notified me around 2 PM that she may have cut her IV fluid line. Discontinue IV fluids. Patient upset about pain medication being changed. Problems (1) Abdominal pain Status: Acute Discussed With: Nurse, Patient Problem Text: 07/10 Stopping Dilaudid IV and starting Oxycodone 10 mg, relatively equivalent dose. Advancing diet to soft foods. Monitor vomiting. 07/09 Pain continues. Consider switch to oral pain medication tomorrow. 07/07/18: Abdominal pain persists. Per nursing staff, patient consumed [place] food last evening which exacerbated her pain. Patient denies this. I encouraged patient to follow the recommended liquid diet 07/06 Persistent abd pain. 07/05 Patient continues to have abdominal pain. Is being managed with Dilaudid. Continue to treat abdominal pain. Encourage patient to use medication when need it. Dilaudid IV. Morphine was not helping as much, wore off. (2) Hypokalemia Status: Acute Response to Treatment: Improving Discussed With: Patient Problem Text: 07/10 K normal level today. Repeat tomorrow. 07/09 Repeat K level tomorrow. Monitor. 07/07/18: 3.6 today. She remains on IVF with K. Patient is drinking and eating well. We may want to consider reducing or d/c her IVF. I will discuss with attending. 07/05 K 3.3 today. Continue to give K in IV fluids. One time dose 20 meq PO potassium. 07/03 K improved yesterday. Repeating BMP today. IV fluids with K. May adjust if needed. 07/02 K was 2.6 this morning. Added K to IV fluids and gave K runs. recheck at 1700. (3) Enteritis Status: Acute Problem Text: 07/09 Tapered steroids again today. Monitor progress tomorrow. Consider changing liquid diet to soft if no vomiting. Also consider cutting back on IV fluids. 07/07/18: Steroids are being tapered. 07/05 Consider tapering IV steroid tomorrow. Also continuing oral steroids for now. If patient's symptoms worsen can increase. 07/02 Continue IV methylprenisolone to calm down inflammation. If able to calm down pain Dr. Beltran will consider upper endoscopy for patient while admitted. Also continue oral steroids at this time. 07/01 Labs pending. GI consulted, appreciate Dr. Beltran's assistance. Continue IV steroids and IV pain medication. 06/30 Per Rheumatology, labs pending. Will call and discuss case with GI, Dr. Beltran, who she was referred outpatient. Lost IV access so will put in midline. 06/29: I have added Entocort to her regimen to try to deliver steroid directly to the inflamed bowel. I have consulted Dr. Phillip to evaluate whether this is lupus related enteritis. If that does not seem promising then, I will look at consulting GI tomorrow (no coverage today). I changed the morphine from 2mg Q3h to IM hydromorphone 0.5mg q3h prn for a slight increase in intensity of the regimen, but also an attempt to make the pain control last longer. 06/28: CT showed some evidence of enteritis. No other signs of infection, no fever, WBC normal. Patient noted pain is still intense but better enough to try some sips of water. On IV zofran if needed and IV pantoprazole. Pain being controlled with IV morphine as patient cannot tolerate home oral pain medications. Differential includes gastroparesis, lupus enteritis, diabetes, other infectious cause. 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 (4) Median arcuate ligament syndrome Problem Text: Noted on CT scan. May be contributing to pain. May consider treating outpatient. Surgery not consulted. (5) Thrush Problem Text: 07/10 Stopping Nystatin daily after over 7 days of treatment. Some oral thrush was noted. Using Nystain SS q6. (6) SLE (systemic lupus erythematosus related syndrome) Status: Chronic Problem Text: 07/10 Continue to taper IV Methylpednisolone tomorrow to 20 mg. Continue with oral Budesonide at this time. Continue to hold home Afinitor. 07/05 Labs for IBD and celiac were negative. 06/30 Putting in midline today. Will give IV methylpednisolone when that is placed. Labs pending. 06/29 Currently on IV methylprednsiolone at this time. Unfortunately, she has lost IV access. If it can't be reestablished in the next couple shifts, then will consider a mid-line tomorrow. Holding home medication, including Afinitor, at this time. (7) Type 2 diabetes mellitus Onset Date: ~ 07/17/2015 Status: Chronic Problem Text: 07/09 Continue to monitor. 06/30 Continue to monitor glucose. 06/29 Will add 10 units of basal insulin to her regimen starting tomorrow as she will only get worse while on steroids. Plan/VTE VTE Prophylaxis Ordered?: Yes (Teds and squentials) VS, I&O, 24H, Fishbone Vital Signs/I&O Vital Signs Date Time Temp Pulse Resp B/P (MAP) Pulse Ox O2 Delivery O2 Flow Rate FiO2 07/10/18 10:16 97.3 74 14 135/69 (91) 97 I&O- Last 24 Hours up to 6 AM 07/10/18 06:00 Intake Total 3550 ml Balance 3550 ml Laboratory Data 24H LABS Laboratory Tests 2 07/09/18 12:07: Bedside Glucose (Misc Panel) 89 07/09/18 16:51: Bedside Glucose (Misc Panel) 92 07/09/18 20:21: Bedside Glucose (Misc Panel) 204H 07/10/18 05:19: Nucleated Red Blood Cells % (auto) 0.0, Anion Gap 11, Glomerular Filtration Rate > 60.0, Blood Urea Nitrogen 7#, Creatinine 0.85, Sodium Level 141, Potassium Level 4.1, Chloride Level 104, Carbon Dioxide Level 26, Calcium Level 8.0L, Aspartate Amino Transf (AST/SGOT) 15, Alanine Aminotransferase (ALT/SGPT) 27, Alkaline Phosphatase 78, Total Bilirubin 0.6, Total Protein 6.2L, Albumin 2.7L, Albumin/Globulin Ratio 0.77L 07/10/18 11:34: Bedside Glucose (Misc Panel) 151H CBC/BMP Laboratory Tests 07/10/18 05:19 Red Blood Count 3.61 L, Mean Corpuscular Volume 77.3 L, Mean Corpuscular Hemoglobin 23.5 L, Mean Corpuscular Hemoglobin Concent 30.5 L, Red Cell Distribution Width 18.6 H, Calcium Level 8.0 L, Aspartate Amino Transf (AST/SGOT) 15, Alanine Aminotransferase (ALT/SGPT) 27, Alkaline Phosphatase 78, Total Bilirubin 0.6, Total Protein 6.2 L, Albumin 2.7 L Microbiology Microbiology 07/02/18 Stool Lactoferrin - Final, Complete 06/30/18 Stool Occult Blood (KINJAL) - Final, Complete GME ATTESTATION GME ATTESTATION My faculty preceptor for this patient encounter was physically present during the encounter and was fully available. All aspects of the patient interview, examination, medical decision making process, and medical care plan development were reviewed and approved by the faculty preceptor. The faculty preceptor is aware and concurs with the plan as stated in the body of this note and will attest to such by his/her cosignature. DALE PRICE DO Jul 10, 2018 12:00
[2018-07-10] MEDS ORDERED: BUDE3CAP PO (14:47)
[2018-07-10] MEDS ORDERED: PRED10TA2 PO (14:47)
[2018-07-10] MEDS ORDERED: HYDR-3363 PO (14:47)
[2018-07-10] MEDS ORDERED: OXYC10TA12 PO (15:11)
--- NOTE | 2018-07-10 17:27 | DS.PDOC ---
Discharge Summary General Date of Admission Jun 28, 2018 at 03:01 Date of Discharge 07/10/17 Primary Care Physician: Nate Camacho MD Attending Physician: Tenzin Blackwood MD Discharge Summary PROCEDURES PERFORMED DURING STAY: Upper Endoscopy and Colonoscopy. ADMITTING DIAGNOSES: 1. DISCHARGE DIAGNOSES: 1. COMPLICATIONS/CHIEF COMPLAINT: Gastroenteritis,Hypokalemia,Gastrointestinal Loss. HISTORY OF PRESENT ILLNESS: . HOSPITAL COURSE: . DISCHARGE MEDICATIONS: Please see below. ALLERGIES: Please see below. PHYSICAL EXAMINATION ON DISCHARGE: VITAL SIGNS: Please see below. GENERAL: HEENT: NECK: CARDIOVASCULAR EXAMINATION: RESPIRATORY EXAMINATION: ABDOMINAL EXAMINATION: EXTREMITIES: SKIN: NEUROLOGICAL EXAMINATION: PSYCHIATRIC EXAMINATION: LABORATORY DATA: Please see below. IMAGING: PROGNOSIS: ACTIVITY: [As tolerated]. DIET: DISCHARGE PLAN: DISPOSITION: Home, Self-Care. DISCHARGE INSTRUCTIONS: 1. . ITEMS TO FOLLOWUP ON ON OUTPATIENT: 1. . DISCHARGE CONDITION: [Stable]. TIME SPENT ON DISCHARGE: Greater than 30 minutes. Vital Signs/I&Os Vital Signs Date Time Temp Pulse Resp B/P (MAP) Pulse Ox O2 Delivery O2 Flow Rate FiO2 07/10/18 10:16 97.3 74 14 135/69 (91) 97 I&O- Last 24 Hours up to 6 AM 07/10/18 05:59 Intake Total 3060 ml Balance 3060 ml Laboratory Data Labs 24H Laboratory Tests 2 07/09/18 20:21: Bedside Glucose (Misc Panel) 204H 07/10/18 05:19: Nucleated Red Blood Cells % (auto) 0.0, Anion Gap 11, Glomerular Filtration Rate > 60.0, Blood Urea Nitrogen 7#, Creatinine 0.85, Sodium Level 141, Potassium Level 4.1, Chloride Level 104, Carbon Dioxide Level 26, Calcium Level 8.0L, Aspartate Amino Transf (AST/SGOT) 15, Alanine Aminotransferase (ALT/SGPT) 27, Alkaline Phosphatase 78, Total Bilirubin 0.6, Total Protein 6.2L, Albumin 2.7L, Albumin/Globulin Ratio 0.77L 07/10/18 11:34: Bedside Glucose (Misc Panel) 151H CBC/BMP Laboratory Tests 07/10/18 05:19 Red Blood Count 3.61 L, Mean Corpuscular Volume 77.3 L, Mean Corpuscular Hemoglobin 23.5 L, Mean Corpuscular Hemoglobin Concent 30.5 L, Red Cell Distribution Width 18.6 H, Calcium Level 8.0 L, Aspartate Amino Transf (AST/SGOT) 15, Alanine Aminotransferase (ALT/SGPT) 27, Alkaline Phosphatase 78, Total Bilirubin 0.6, Total Protein 6.2 L, Albumin 2.7 L FSBS Laboratory Tests Test 07/09/18 20:21 07/10/18 11:34 Range/Units Bedside Glucose (Misc Panel) 204 151 70-105 MG/DL Microbiology Microbiology 07/02/18 Stool Lactoferrin - Final, Complete 06/30/18 Stool Occult Blood (KINJAL) - Final, Complete Discharge Medications Scheduled (Restasis) 0.05 % Emu, 1 DROP OU BID, (Reported) Budesonide (Budesonide) 3 Mg Cap, 9 MG PO QAM Everolimus (Afinitor) 5 Mg Tab, 2.5 MG PO BID, (Reported) Hydroxyzine HCl (Hydroxyzine HCl) 25 Mg Tab, 25 MG PO QHS Metoclopramide HCl (Metoclopramide HCl) 10 Mg Tab, 10 MG PO AC, (Reported) PATIENT USES ODT FORM OF METOCLOPRAMIDE Prednisone (Prednisone) 10 Mg Tab, 10 MG PO TAPER Take 3 tabs daily x 3 days, then 2 tabs daily x 3 days, then 1 tab daily x 3 days and stop Propranolol HCl (Propranolol HCl ER) 60 Mg Cap, 60 MG PO DAILY, (Reported) [Liqui Cannibis] , 2 ML PB TID, (Reported) Scheduled PRN (Voltaren) 1 % Gel, 1 APLCT TOP QID PRN for PAIN, (Reported) apply to affected area(s) Albuterol Sulfate (Proair Hfa) 108 Mcg/Act Aer, 2 PUFF INH Q4-6HP PRN for SHORTNESS OF BREATH, (Reported) Diazepam (Diazepam Intensol) 5 Mg/Ml Con, 1 ML PO BIDP PRN for ANXIETY, (Reported) Fluticasone Propionate (Fluticasone Propionate) 50 Mcg/Act Spr, 1 SPRAY NA BID PRN for ALLERGIES, (Reported) Oxycodone HCl (Oxycodone HCl) 10 Mg Tab, 10 MG PO Q4HP PRN for pain Prochlorperazine (Prochlorperazine Maleate) 5 Mg Tab, 5 MG PO TID PRN for NAUSEA, (Reported) Allergies Coded Allergies: Sulfa Drugs (Unverified Allergy, Severe, THROAT CLOSES, 10/02/15) Sulfa Drugs Cross Reactors (Unverified Allergy, Severe, THROAT CLOSES, 10/02/15) Penicillins (Unverified Allergy, Intermediate, LIPS SWELL, 10/02/15) Penicillins Cross Reactors (Unverified Allergy, Intermediate, LIPS SWELL, 10/02/15) NUTS (Verified Allergy, Unknown, 01/30/06) Nalbuphine (Verified Allergy, Unknown, 08/19/12) Olives (Verified Allergy, Unknown, 01/30/06) [place] (Verified Allergy, Unknown, 08/19/12) Latex (Verified Adverse Reaction, Intermediate, LATEX SENSITIVITY, 10/02/15) Promethazine (Unverified Adverse Reaction, Intermediate, TACHY, 10/02/15) Colchicine (Unverified Adverse Reaction, Mild, NAUSEA, 10/02/15) GME ATTESTATION GME ATTESTATION My faculty preceptor for this patient encounter was physically present during the encounter and was fully available. All aspects of the patient interview, exa mination, medical decision making process, and medical care plan development were reviewed and approved by the faculty preceptor. The faculty preceptor is aware and concurs with the plan as stated in the body of this note and will attest to such by his/her cosignature. DALE PRICE DO Jul 10, 2018 17:26
[2018-07-11] MEDS ORDERED: methylPREDNISolone INJ 40 MG/1 ML VIAL (J2920) IV SCH (09:00)
== END 2018-07-10 15:43 | disposition home or self-care (01) | DRG 392 ==
LOC: M ED 20:09 → M ED INP 06-28 03:01 → M MSPAV 06-28 14:24
PROVIDERS: ADMIT Hospitalist; ATTEND Family Medicine
PROC: 02HV33Z Insertion of Infusion Device into Superior Vena Cava, Percutaneous Approach (ICD-10-PCS; 2018-06-30)
PROC: 0DJD8ZZ Inspection of Lower Intestinal Tract, Via Natural or Artificial Opening Endoscopic (ICD-10-PCS; principal; 2018-07-08 13:14)
PROC: 0DJ08ZZ Inspection of Upper Intestinal Tract, Via Natural or Artificial Opening Endoscopic (ICD-10-PCS; 2018-07-08 13:14)
DX: K52.9 Noninfective gastroenteritis and colitis, unspecified (principal); M32.11 Endocarditis in systemic lupus erythematosus; I77.4 Celiac artery compression syndrome; B37.0 Candidal stomatitis; E11.9 Type 2 diabetes mellitus without complications; Z95.0 Presence of cardiac pacemaker; J45.909 Unspecified asthma, uncomplicated; M35.00 Sjogren syndrome, unspecified; I73.00 Raynaud's syndrome without gangrene; Z79.899 Other long term (current) drug therapy; Z88.2 Allergy status to sulfonamides; Z88.0 Allergy status to penicillin; Z91.040 Latex allergy status; Z91.018 Allergy to other foods; Z91.010 Allergy to peanuts; E87.6 Hypokalemia; R10.9 Unspecified abdominal pain

== ENCOUNTER → 2019-02-21 | Outpatient (REF) | payer OTHER ==
[~2019-02-21] MED LIST changes: -/FENT50PA; +AFIN5TAB PO; -ASPI1TAB PO; +ASPI81TA26 PO; +BUDE3CAP PO; +FENT1DIS15; +FLUTISP; +HYDR-3363 PO; +METO10TA2 PO; -MORP1SOL PO; +MORP20SO16 PO; +ONDA8TAB10 PO; -ONDA8TAB7 PO; +OXYC10TA12 PO; +OXYC30TA72 PO; +OXYC5SOL11 PO; +PATIENT COMMENTS; +PRED10TA2 PO; +PRED5PAK2 PO; +PROC5TA PO; +REST0.05 OU; -SILV50CR TOP; +THER1CRE16 TOP; +[UNRECOGNIZED DRUG - CODE] PO
== END ==
LOC: M SFHCPLAZ 12:52
PROVIDERS: ATTEND Family Medicine
DX: Z53.9 Procedure and treatment not carried out, unspecified reason (principal)

== ENCOUNTER → 2019-04-29 | Outpatient (REF) | payer OTHER ==
[~2019-04-29] MED LIST changes: -ONDA8TAB10 PO; +ONDA8TAB7 PO
[2019-04-29 19:57] LABS: APPEARANCE, URINE TURBID (CLEAR); BACTERIA, URINE AUTO NEGATIVE (NEGATIVE); BILIRUBIN, URINE AUTO 1+ (NEGATIVE); BLOOD, URINE BLOOD 1+ (NEGATIVE); COLOR, URINE AMBER (YELLOW); GLUCOSE, URINE (UA) AUTO 3+ mg/dL (NEGATIVE); KETONE, URINE AUTO NEGATIVE (NEGATIVE); LEUKOCYTE ESTERASE, URINE AUTO NEGATIVE (NEGATIVE); MUCUS, URINE SMALL (NEGATIVE); NITRITE, URINE AUTO NEGATIVE (NEGATIVE); PROTEIN, URINE AUTO 1+ mg/dL (NEGATIVE); RBC, URINE AUTO 0 /HPF (0-3); SQUAMOUS EPITHELIAL CELL UR AU 3 /HPF (0-6); UROBILINOGEN, URINE AUTO 0.2 mg/dL (0.0-2.0); WBC, URINE AUTO 2 /HPF (0-3)
[2019-05-07 08:32] LABS: ALPRAZOLAM, URINE Negative (Cutoff=100); BENZODIAZEPINES, URINE Positive ng/mL (Cutoff=100); CANNABINOID, URINE Positive (Cutoff=20); CARBOXY THC (GC/MS) >400 ng/mL (Cutoff=10); CLONAZEPAM, URINE Negative (Cutoff=100); CREATININE, URINE 313.1 mg/dL (20.0-300.0); FLURAZEPAM, URINE Negative (Cutoff=100); LORAZEPAM, URINE Negative (Cutoff=100); MIDAZOLAM, URINE Negative (Cutoff=100); NORDIAZEPAM, URINE Positive (.); NORDIAZEPAM, URINE CONFIRM 294 ng/mL (Cutoff=100); OPIATES, URINE Negative ng/mL (Cutoff=300); OXAZEPAM, URINE Positive (.); OXAZEPAM, URINE CONFIRM 666 ng/mL (Cutoff=100); OXYCODONE URINE Positive (.); OXYCODONE, URINE CONFIRM >3000 ng/mL (Cutoff=100); OXYCODONE/OXYMORPH, URINE Positive (Cutoff=100); OXYMORPHONE, URINE Positive (.); OXYMORPHONE, URINE CONFIRM >3000 ng/mL (Cutoff=100); TEMAZEPAM, URINE Positive (.); TEMAZEPAM, URINE CONFIRM 608 ng/mL (Cutoff=100); TRIAZOLAM, URINE Negative (Cutoff=100)
== END ==
LOC: M SFHCPLAZ 19:05
PROVIDERS: ATTEND Family Medicine
DX: M32.9 Systemic lupus erythematosus, unspecified (principal); G89.4 Chronic pain syndrome
CPT/HCPCS: 81001; G0463

== ENCOUNTER → 2019-06-08 | Outpatient (CLI) | payer OTHER ==
[~2019-06-08] MED LIST changes: +ONDA8TAB10 PO; -ONDA8TAB7 PO
[2019-06-08 17:39] LABS: HEMATOCRIT 35.5 % (36.0-47.0); HEMOGLOBIN 10.8 g/dl (12.0-15.5); MEAN CORPUSCULAR HEMOGLOBIN 23.6 pg (27.0-33.0); MEAN CORPUSCULAR HGB CONC 30.4 g/dl (32.0-36.5); MEAN CORPUSCULAR VOLUME 77.5 fl (80.0-96.0); PLATELET COUNT, AUTOMATED 231 10^3/uL (150-450); RED BLOOD COUNT 4.58 10^6/uL (4.00-5.40); WHITE BLOOD COUNT 5.2 10^3/uL (4.0-10.0)
[2019-06-08 17:45] LABS: ALBUMIN 3.4 GM/DL (3.2-5.2); ALT/SGPT 28 U/L (12-78); AMYLASE 68 U/L (25-115); BILIRUBIN,TOTAL 0.8 MG/DL (0.2-1.0); BLOOD UREA NITROGEN 12 MG/DL (7-18); CALCIUM LEVEL 8.3 MG/DL (8.5-10.1); CARBON DIOXIDE LEVEL 28 MEQ/L (21-32); CHLORIDE LEVEL 103 MEQ/L (98-107); GLOMERULAR FILTRATION RATE > 60.0 (>51); GLUCOSE, FASTING 201 MG/DL (70-100); LIPASE 76 U/L (73-393); POTASSIUM SERUM 4.4 MEQ/L (3.5-5.1); SODIUM LEVEL 137 MEQ/L (136-145); TOTAL PROTEIN 7.5 GM/DL (6.4-8.2)
== END ==
LOC: M PLALAB 14:59
PROVIDERS: ATTEND Family Medicine
DX: R10.13 Epigastric pain (principal); M32.9 Systemic lupus erythematosus, unspecified

== ENCOUNTER 2019-06-18 21:26 | Inpatient (IN) | payer OTHER ==
[~2019-06-18] VITALS: Ht 157.5 cm; Wt 60.0 kg
[2019-06-18] MEDS ORDERED: [UNRECOGNIZED DRUG - CODE] PO (21:39)
[2019-06-18] MEDS ORDERED: NS 1,000 ML IV ONE (22:45)
[2019-06-18 23:11] LABS: BASO % 0.5 % (0.0-1.0); EOS # 0.1 10^3/uL (0.0-0.5); HEMATOCRIT 36.5 % (36.0-47.0); HEMOGLOBIN 11.6 g/dl (12.0-15.5); LYMPH % 30.8 % (24.0-44.0); MEAN CORPUSCULAR HEMOGLOBIN 23.9 pg (27.0-33.0); MEAN CORPUSCULAR HGB CONC 31.8 g/dl (32.0-36.5); MEAN CORPUSCULAR VOLUME 75.1 fl (80.0-96.0); MONO # 0.5 10^3/uL (0.0-0.8); MONO % 7.8 % (0.0-5.0); NEUTROPHILS # 3.9 10^3/uL (1.5-8.5); NEUTROPHILS % 58.6 % (36.0-66.0); PLATELET COUNT, AUTOMATED 277 10^3/uL (150-450); RED BLOOD COUNT 4.86 10^6/uL (4.00-5.40); WHITE BLOOD COUNT 6.6 10^3/uL (4.0-10.0)
[2019-06-18 23:43] LABS: ALBUMIN 3.6 GM/DL (3.2-5.2); ALT/SGPT 40 U/L (12-78); BILIRUBIN,DIRECT 0.3 MG/DL (0.0-0.2); BILIRUBIN,TOTAL 1.1 MG/DL (0.2-1.0); BLOOD UREA NITROGEN 9 MG/DL (7-18); CALCIUM LEVEL 9.2 MG/DL (8.5-10.1); CARBON DIOXIDE LEVEL 26 MEQ/L (21-32); CHLORIDE LEVEL 104 MEQ/L (98-107); CREATININE FOR GFR 0.91 MG/DL (0.55-1.30); GLOMERULAR FILTRATION RATE > 60.0 (>51); GLUCOSE, FASTING 223 MG/DL (70-100); LIPASE 93 U/L (73-393); POTASSIUM SERUM 3.3 MEQ/L (3.5-5.1); SODIUM LEVEL 139 MEQ/L (136-145); TOTAL PROTEIN 8.1 GM/DL (6.4-8.2)
--- NOTE | 2019-06-19 00:58 | REPVR ---
PROCEDURE INFORMATION: Exam: CT Abdomen And Pelvis Without Contrast Exam date and time: 06/18/2019 12:02 AM Age: 59 years old Clinical indication: Abdominal pain; Generalized; Additional info: Pain/ iv acsess tenuous TECHNIQUE: Imaging protocol: Computed tomography of the abdomen and pelvis without contrast. Radiation optimization: All CT scans at this facility use at least one of these dose optimization techniques: automated exposure control; mA and/or kV adjustment per patient size (includes targeted exams where dose is matched to clinical indication); or iterative reconstruction. COMPARISON: CT ABD/PEL W/IV CONTRAST ONLY 06/27/2018 11:47 PM FINDINGS: Tubes, catheters and devices: Pacemaker leads in the heart. Lungs: Scattered linear atelectasis in the lung bases. Liver: Fatty infiltration of the liver. No mass. Gallbladder and bile ducts: Status post cholecystectomy. CBD measures 6 mm in diameter. Pancreas: Normal. No ductal dilation. Spleen: Normal. No splenomegaly. Adrenals: Normal. No mass. Kidneys and ureters: Normal. No hydronephrosis. Stomach and bowel: Mild sigmoid diverticulosis without diverticulitis. No abnormal bowel dilatation. No abnormal bowel wall thickening. Mild stool in the colon. Appendix: Appendix is normal. Intraperitoneal space: Unremarkable. No free air. No significant fluid collection. Vasculature: Unremarkable. No abdominal aortic aneurysm. Lymph nodes: Unremarkable. No enlarged lymph nodes. Bladder: Unremarkable as visualized. Reproductive: Status post hysterectomy. Bones/joints: Mild degenerative spine. No acute fracture. Soft tissues: Unremarkable. IMPRESSION: 1. No CT findings to suggest source of abdominal pain. 2. Fatty infiltration of the liver. 3. Incidental findings as described. 4. Previously seen bowel wall thickening has resolved. Electronically signed by: Iliana Pandya On 06/19/2019 00:59:53 AM
[2019-06-19] MEDS ORDERED: KETAMINE HCL IV ONE (01:00)
[2019-06-19] MEDS ORDERED: NS IV ONE (01:00)
--- NOTE | 2019-06-19 01:43 | HPEPDOC ---
[facility] Medical History & Physical Date of Admission Jun 19, 2019 Date of Service: Jun 19, 2019 Primary Care Physician: Nate Camacho MD Attending Physician: Anthony Noriega MD History and Physical TIME OF SERVICE: 2:05 AM CHIEF COMPLAINT:, Abdominal pain HISTORY OF PRESENT ILLNESS: This is a 59-year-old female who presents with complaints of cramping severe abdominal pain. She came to the hospital because the pain did not improve despite taking medications. She has so had nonbloody diarrhea for about 1 week. She can't count how many episodes of diarrhea . He has per day, but reports that every time she eats she has to have a bowel movement. At her baseline she has 2- 3 bowel movements per day. She is also complaining of nausea, nonbloody emesis, fever, chills, and sweating. She was recently put on erythromycin for gastroparesis. 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 Coronary vasospasm Fatty liver s/p hysterectomy, s/p ovarian cyst removal in the . s/p laparoscopic cholecystectomy SOCIAL HISTORY: Uses marijuana for abdominal pain FAMILY HISTORY: HTN CVA CHF Asthma SLE ALLERGIES: Please see below. HOME MEDICATIONS: Please see below. PHYSICAL EXAMINATION: VITAL SIGNS: Please see below. GEN: well-nourished / well developed INTEGUMENT: not flushed/ not jaundice HEENT: NCAT CVS: RRR/NMRG LUNGS: clear to auscultation bilaterally on room air ABDOMEN: Contour (obese) / bowel sounds are active present / the abdomen is soft & tender with palpation MSK/EXTREMITIES: range of motion intact in all 4 extremities NEURO: CN 2-12 are grossly intact / speech is not dysarthric PSYCH: Asleep but arousable with vocal stimuli / able to understand and follow all commands LABORATORY DATA: See below. IMAGING: CT abdomen and pelvis " IMPRESSION: 1. No CT findings to suggest source of abdominal pain. 2. Fatty infiltration of the liver. 3. Incidental findings as described. 4. Previously seen bowel wall thickening has resolved. " MICROBIOLOGY: Please see below. ASSESSMENT: Ms. Jorgensen is a 59-year-old female with a medical history of DM, gastroparesis, Lupus carditis with pacemaker, Sjogren's, Raynaud's, DM, gastroparesis, asthma, and fatty liver who is admitted for evaluation of diarrhea. PLAN: 1. Diarrhea Cause to be determined Plan: Admit to medical floor/nothing by mouth with IV fluids/follow-up C. difficile /IV fluids 2. Hypokalemia secondary to diarrhea. Plan: Replete potassium & follow-up magnesium 3. Diabetes w Gastroparesis The recent A1C is 9.4% in June of last year Plan: diabetic diet / f/u accuchecks & A1C / hypoglycemia protocol / sliding scale insulin / hold oral anti-glycemics / per pt hold erythromycin 4. Morbid Obesity This complicates her care She has co-existing DM Plan: can f/u w PCP for STOP BANG questionnaire, spring maker consult / recommend cardiovascular exercise for 40 min 4-5 days a week DVT PROPHYLAXIS: Lovenox DISPOSITION: Home after more than 2 midnight's stay Vital Signs Vital Signs Date Time Temp Pulse Resp B/P (MAP) Pulse Ox O2 Delivery O2 Flow Rate FiO2 06/18/19 23:00 98.4 06/18/19 21:55 06/18/19 21:27 87 18 98 Room Air Laboratory Data Labs 24H Laboratory Tests 2 06/18/19 23:02: Immature Granulocyte % (Auto) 0.3, Neutrophils (%) (Auto) 58.6, Lymphocytes (%) (Auto) 30.8, Monocytes (%) (Auto) 7.8H, Eosinophils (%) (Auto) 2.0, Basophils (%) (Auto) 0.5, Neutrophils # (Auto) 3.9, Lymphocytes # (Auto) 2.0, Monocytes # (Auto) 0.5, Eosinophils # (Auto) 0.1, Basophils # (Auto) 0.0, Nucleated Red Blood Cells % (auto) 0.0, Anion Gap 9, Glomerular Filtration Rate > 60.0, Calcium Level 9.2, Total Bilirubin 1.1H, Direct Bilirubin 0.3H, Aspartate Amino Transf (AST/SGOT) 47H, Alanine Aminotransferase (ALT/SGPT) 40, Alkaline Phosphatase 106, Total Protein 8.1, Albumin 3.6, Albumin/Globulin Ratio 0.80L, Lipase 93 06/18/19 23:05: POC Glucose (Misc Panel) 233H, POC Sodium (Misc Panel) 139, POC Potassium (Misc Panel) 3.1L, POC Chloride (Misc Panel) 103, POC Total CO2 (Misc Panel) 24.0, POC Blood Urea Nitrogen (Misc Panel 8, POC Ionized Calcium (Misc Panel) 4.2L, POC Creatinine (Misc Panel) 0.7, POC Hematocrit (Misc Panel) 36.0L CBC/BMP Laboratory Tests 06/18/19 23:02 Home Medications Scheduled Everolimus (Afinitor) 5 Mg Tab, 2.5 MG PO BID Propranolol HCl (Propranolol HCl ER) 60 Mg Cap, 60 MG PO DAILY [Liqui Cannibis] , 2 ML PB TID Scheduled PRN Diazepam (Diazepam) 5 Mg/Ml Con, 1 ML PO BIDP PRN for ANXIETY Fluticasone Propionate (Fluticasone Propionate) 50 Mcg/Act Spr, 1 SPRAY NA BID PRN for ALLERGIES Oxycodone HCl (Oxycodone HCl) 10 Mg Tab, 10 MG PO Q4HP PRN for pain Miscellaneous Medications Erythromycin Ethylsuccinate (Eryped 400) 400 Mg/5 Ml Susp.recon Allergies Coded Allergies: Sulfa (Sulfonamide Antibiotics) (Verified Allergy, Severe, THROAT CLOSES, 06/18/19) Penicillins (Verified Allergy, Intermediate, LIPS SWELL, 06/18/19) latex (Verified Allergy, Intermediate, LATEX SENSITIVITY, 06/18/19) NUTS (Verified Allergy, Unknown, 06/18/19) Olives (Verified Allergy, Unknown, 06/18/19) nalbuphine (Verified Allergy, Unknown, 06/18/19) strawberry (Verified Allergy, Unknown, 06/18/19) promethazine (Verified Adverse Reaction, Intermediate, TACHY, 06/18/19) colchicine (Verified Adverse Reaction, Mild, NAUSEA, 06/18/19) A-FIB/CHADSVASC A-FIB History Current/History of A-Fib/PAF?: No Current PO Anticoag Therapy: CRISTINA Owusu MD Jun 19, 2019 01:42
[2019-06-19 01:58] LABS: MAGNESIUM LEVEL 1.9 MG/DL (1.8-2.4)
[2019-06-19 02:14] VITALS: BP 144/79
[2019-06-19] MEDS ORDERED: GLUCOSE 4 GM CHEW TABLET PO PRN (02:45)
[2019-06-19] MEDS ORDERED: GLUCAGON FOR INJ 1 MG VIAL (J1610) SC PRN (02:45)
[2019-06-19] MEDS ORDERED: DEXTROSE 50% 50 ML SYRINGE IV PRN (02:45)
[2019-06-19] MEDS: NS 1,000 ML IV SCH ×3 (02:48→19:25)
[2019-06-19] MEDS ORDERED: OXYC30TA72 PO (03:10)
[2019-06-19] MEDS ORDERED: OXYC10TA12 PO (03:10)
[2019-06-19 06:00] VITALS: BP 147/81
[2019-06-19 06:30] LABS: BLOOD UREA NITROGEN 5 MG/DL (7-18); CALCIUM LEVEL 8.1 MG/DL (8.5-10.1); CARBON DIOXIDE LEVEL 22 MEQ/L (21-32); CHLORIDE LEVEL 112 MEQ/L (98-107); CREATININE FOR GFR 0.66 MG/DL (0.55-1.30); GLOMERULAR FILTRATION RATE > 60.0 (>51); GLUCOSE, FASTING 159 MG/DL (70-100); POTASSIUM SERUM 3.7 MEQ/L (3.5-5.1); SODIUM LEVEL 141 MEQ/L (136-145)
[2019-06-19 08:41] LABS: HEMATOCRIT 33.9 % (36.0-47.0); HEMOGLOBIN 10.8 g/dl (12.0-15.5); MEAN CORPUSCULAR HEMOGLOBIN 24.1 pg (27.0-33.0); MEAN CORPUSCULAR HGB CONC 31.9 g/dl (32.0-36.5); MEAN CORPUSCULAR VOLUME 75.7 fl (80.0-96.0); PLATELET COUNT, AUTOMATED 250 10^3/uL (150-450); RED BLOOD COUNT 4.48 10^6/uL (4.00-5.40); WHITE BLOOD COUNT 5.5 10^3/uL (4.0-10.0)
[2019-06-19] MEDS ORDERED: PROPRANOLOL 20 MG TAB PO SCH (09:00)
[2019-06-19] MEDS ORDERED: FLUTICASONE PROP 0.05% NASAL SPRAY 16 GM (FLONASE) NARES PRN (09:00)
[2019-06-19] MEDS: HumaLOG INSULIN (NovoLOG) PER UNIT SC SCH ×4 (09:07→21:00)
[2019-06-19] MEDS: ENOXAPARIN 40 MG/0.4 ML SYRINGE (J1650) SC SCH (09:44)
[2019-06-19] MEDS ORDERED: oxyCODONE 15 MG CR TAB PO PRN (09:45)
[2019-06-19] MEDS ORDERED: oxyCODONE 5MG TAB PO PRN (09:45)
[2019-06-19 10:00] VITALS: BP 143/82
[2019-06-19] MEDS: PROPRANOLOL 80 MG LA CAP PO SCH (10:28)
--- NOTE | 2019-06-19 12:01 | IPNPDOC ---
Subjective Date Seen The patient was seen on 06/19/19. Subjective Chief Complaint/HPI improved diarrhea Constitutional: Denies: Chills, Fever ENT: Denies: Head Aches Pulmonary: Denies: Dyspnea, Cough Cardiovascular: Denies: Chest Pain Gastrointestinal: Reports: Nausea, Abdominal Pain; Denies: Vomiting Objective Physical Examination General Exam: Positive: Alert Eye Exam: Positive: PERRLA Neck Exam: Negative: JVD Chest Exam: Positive: Clear to auscultation Heart Exam: Positive: Rate Normal Abdomen Exam: Positive: Normal bowel sounds Extremity Exam: Negative: Edema Skin Exam: Negative: Rash Psych Exam: Positive: Mental status NL Assessment /Plan Problems (1) Abdominal pain Status: Acute Problem Text: c diarrhea- favor 2 recurrent SLE gastritis/enteritis flare +/- opioid withdrawal syndrome (2 poor absorption)-with flares PCP has changed chronic oxycodone to liquid HC 10 q4H prn to improve absorption 2/ Coal 5-6 BMs per nursing, patient tolerating sips of clears and given lost peripheral IV (and unable to obtain p 6 attempts), ADT, AF, WBC 5.5 2/2 GI PCR P (2) Type 2 diabetes mellitus Onset Date: ~ 07/17/2015 Status: Chronic Problem Text: 06/2018 A1C 9 2/2 SSLI AC TID/QHS; + det 10 QHS (3) SLE (systemic lupus erythematosus related syndrome) Status: Chronic Problem Text: continue everolimus 2.5 BID-order written, bringing in 06/16 Dr. Blake changed chronic everolimus 2.5 BID to belimumab 200 q14D given decreased efficacy, BUT her Conference And Event Organiser rejected change given VHD risk (4) Gastroparesis Status: Chronic Response to Treatment: Stable Problem Text: stable on HD EES 400 TID prn (5) Chronic, continuous use of opioids Status: Chronic Response to Treatment: Stable Problem Text: confirmed c PCP Dr. Camacho-takes oxycodone ER 30 TID prn, IR 10 TID prn (6) Medical marijuana use Status: Chronic Problem Text: per [facility] policy, unable to administer HD THC/CBD (7) Anemia Status: Chronic Response to Treatment: Stable Problem Text: 2 ACD, Fe def 2/2 10.8-stable Plan/VTE VTE Prophylaxis Ordered?: Yes VS, I&O, 24H, Fishbone Vital Signs/I&O Vital Signs Date Time Temp Pulse Resp B/P (MAP) Pulse Ox O2 Delivery O2 Flow Rate FiO2 06/19/19 10:28 74 143/82 06/19/19 10:24 18 06/19/19 10:00 98.8 100 Room Air I&O- Last 24 Hours up to 6 AM 06/19/19 06:00 Intake Total 1050.2136 ml Output Total 500 ml Balance 550.2136 ml Laboratory Data 24H LABS Laboratory Tests 2 06/18/19 23:02: Immature Granulocyte % (Auto) 0.3, Neutrophils (%) (Auto) 58.6, Lymphocytes (%) (Auto) 30.8, Monocytes (%) (Auto) 7.8H, Eosinophils (%) (Auto) 2.0, Basophils (%) (Auto) 0.5, Neutrophils # (Auto) 3.9, Lymphocytes # (Auto) 2.0, Monocytes # (Auto) 0.5, Eosinophils # (Auto) 0.1, Basophils # (Auto) 0.0, Nucleated Red Blood Cells % (auto) 0.0, Anion Gap 9, Glomerular Filtration Rate > 60.0, Calcium Level 9.2, Magnesium Level 1.9, Total Bilirubin 1.1H, Direct Bilirubin 0.3H, Aspartate Amino Transf (AST/SGOT) 47H, Alanine Aminotransferase (ALT/SGPT) 40, Alkaline Phosphatase 106, Total Protein 8.1, Albumin 3.6, Albumin/Globulin Ratio 0.80L, Lipase 93 06/18/19 23:05: POC Glucose (Misc Panel) 233H, POC Sodium (Misc Panel) 139, POC Potassium (Misc Panel) 3.1L, POC Chloride (Misc Panel) 103, POC Total CO2 (Misc Panel) 24.0, POC Blood Urea Nitrogen (Misc Panel 8, POC Ionized Calcium (Misc Panel) 4.2L, POC Creatinine (Misc Panel) 0.7, POC Hematocrit (Misc Panel) 36.0L 06/19/19 02:39: Magnesium Level 1.9 06/19/19 06:03: Anion Gap 7L, Glomerular Filtration Rate > 60.0, Calcium Level 8.1L, Estimated Mean Plasma Glucose 212H, Hemoglobin A1c 9.0 06/19/19 08:18: Nucleated Red Blood Cells % (auto) 0.0 CBC/BMP Laboratory Tests 06/18/19 23:02 06/19/19 06:03 06/19/19 08:18 Ino Lyon M.D. Jun 19, 2019 12:01
[2019-06-19] MEDS ORDERED: HYDROcodone/APAP LIQUID 7.5-325MG 15ML UDC (LORTAB ELIXIR) PO PRN (12:30)
[2019-06-19 14:00] VITALS: BP 142/80
[2019-06-19] MEDS ORDERED: ERYTHROMYCIN 400 MG/5 ML PO PRN (14:30)
[2019-06-19 14:51] LABS: CLOSTRIDIUM DIFFICILE PCR NEGATIVE (NEGATIVE)
[2019-06-19] MEDS: HYDROcodone/APAP LIQUID 7.5-325MG 15ML UDC (LORTAB ELIXIR) PO PRN ×2 (16:38→21:08)
[2019-06-19] MEDS ORDERED: LEVEMIR (INSULIN DETEMIR) 1 UNITS/0.01ML SC SCH (21:00)
[2019-06-19 22:00] VITALS: BP 121/67
[2019-06-20 00:14] VITALS: BP 104/60
[2019-06-20] MEDS: HYDROcodone/APAP LIQUID 7.5-325MG 15ML UDC (LORTAB ELIXIR) PO PRN ×3 (01:30→09:00)
[2019-06-20] MEDS: NS 1,000 ML IV SCH ×3 (04:51→22:00)
[2019-06-20 06:00] VITALS: BP 116/66
[2019-06-20 06:24] LABS: BASO % 0.4 % (0.0-1.0); EOS # 0.1 10^3/uL (0.0-0.5); EOS % 2.8 % (0.0-3.0); HEMATOCRIT 30.8 % (36.0-47.0); HEMOGLOBIN 9.7 g/dl (12.0-15.5); LYMPH # 2.4 10^3/uL (1.5-5.0); LYMPH % 52.1 % (24.0-44.0); MEAN CORPUSCULAR HEMOGLOBIN 24.1 pg (27.0-33.0); MEAN CORPUSCULAR HGB CONC 31.5 g/dl (32.0-36.5); MEAN CORPUSCULAR VOLUME 76.6 fl (80.0-96.0); MONO # 0.5 10^3/uL (0.0-0.8); MONO % 10.6 % (0.0-5.0); NEUTROPHILS # 1.6 10^3/uL (1.5-8.5); NEUTROPHILS % 33.9 % (36.0-66.0); PLATELET COUNT, AUTOMATED 229 10^3/uL (150-450); RED BLOOD COUNT 4.02 10^6/uL (4.00-5.40); WHITE BLOOD COUNT 4.6 10^3/uL (4.0-10.0)
[2019-06-20 06:57] LABS: ALBUMIN 2.8 GM/DL (3.2-5.2); ALT/SGPT 30 U/L (12-78); BILIRUBIN,TOTAL 0.9 MG/DL (0.2-1.0); BLOOD UREA NITROGEN 5 MG/DL (7-18); C REACTIVE PROTEIN QUANTITATIV 0.42 MG/DL (0.00-0.30); CALCIUM LEVEL 7.8 MG/DL (8.5-10.1); CARBON DIOXIDE LEVEL 24 MEQ/L (21-32); CHLORIDE LEVEL 112 MEQ/L (98-107); COMPLEMENT C3 139 MG/DL (90-180); COMPLEMENT C4 24 MG/DL (10-40); CREATININE FOR GFR 0.79 MG/DL (0.55-1.30); GLOMERULAR FILTRATION RATE > 60.0 (>51); GLUCOSE, FASTING 132 MG/DL (70-100); POTASSIUM SERUM 3.3 MEQ/L (3.5-5.1); SODIUM LEVEL 144 MEQ/L (136-145); TOTAL PROTEIN 6.2 GM/DL (6.4-8.2)
[2019-06-20] MEDS ORDERED: MAG SULF 1GM/100ML (MAG RUN) 1 GM in IV 1 EA IV ONE (08:00)
[2019-06-20] MEDS ORDERED: POTASSIUM CHLORIDE 10% LIQ 20 MEQ/15 ML UDC PO ONE (08:00)
[2019-06-20] MEDS: HumaLOG INSULIN (NovoLOG) PER UNIT SC SCH ×4 (08:47→21:00)
[2019-06-20] MEDS: ENOXAPARIN 40 MG/0.4 ML SYRINGE (J1650) SC SCH (08:47)
[2019-06-20] MEDS: PROPRANOLOL 80 MG LA CAP PO SCH (08:49)
[2019-06-20 10:00] VITALS: BP 111/57
[2019-06-20] MEDS ORDERED: oxyCODONE 5MG TAB PO PRN (11:30)
--- NOTE | 2019-06-20 11:33 | IPNPDOC ---
Subjective Date Seen The patient was seen on 06/20/19. Subjective Chief Complaint/HPI diarrhea Events since last encounter States abdominal bloating is improved. would like to resume per po pain meds that she takes at home. Intolerant to po potassium supplement due to nausea. Constitutional: Denies: Chills, Fever, Night Sweats Skin: Denies: Rash, Lesions, Jaundice, Bruising, Itching, Dry, Breakdown, Nail Changes, Other Cardiovascular: Denies: Chest Pain, Palpitations, Orthopnea, Paroxysmal Noc. Dyspnea, Lt Headedness Gastrointestinal: Reports: Nausea; Denies: Vomiting, Abdominal Pain, Diarrhea Objective Physical Examination General Exam: Positive: Alert Eye Exam: Positive: PERRLA Neck Exam: Negative: JVD Chest Exam: Positive: Clear to auscultation Heart Exam: Positive: Rate Normal Abdomen Exam: Positive: Normal bowel sounds, Soft, Tenderness Extremity Exam: Negative: Edema Skin Exam: Negative: Rash Psych Exam: Positive: Mental status NL Assessment /Plan Assessment Agree with note below. GI distress resolving, resuming PO medications. -- CDT Problems (1) Abdominal pain Status: Acute Problem Text: Pain and diarrhea improving. advance diet as tolerated. resume po medications. favor 2 recurrent SLE gastritis/enteritis flare +/- opioid withdrawal syndrome (2 poor absorption)-with flares PCP has changed chronic oxycodone to liquid HC 10 q4H prn to improve absorption (2) Type 2 diabetes mellitus Onset Date: ~ 07/17/2015 Status: Chronic Problem Text: 06/2018 A1C 9 2/2 SSLI AC TID/QHS; + det 10 QHS (3) SLE (systemic lupus erythematosus related syndrome) Status: Chronic Problem Text: continue everolimus 2.5 BID-order written, bringing in 06/16 Dr. Blake changed chronic everolimus 2.5 BID to belimumab 200 q14D given decreased efficacy, BUT her Shipping Processor rejected change given VHD risk (4) Gastroparesis Status: Chronic Response to Treatment: Stable Problem Text: stable on HD EES 400 TID prn (5) Chronic, continuous use of opioids Status: Chronic Response to Treatment: Stable Problem Text: confirmed c PCP Dr. Camacho-takes oxycodone ER 30 TID prn, IR 10 TID prn (6) Medical marijuana use Status: Chronic Problem Text: per [facility] policy, unable to administer HD THC/CBD (7) Anemia Status: Chronic Response to Treatment: Stable Problem Text: 2 ACD, Fe def 06/19 10.8-stable Plan/VTE VTE Prophylaxis Ordered?: Yes VS, I&O, 24H, Fishbone Vital Signs/I&O Vital Signs Date Time Temp Pulse Resp B/P (MAP) Pulse Ox O2 Delivery O2 Flow Rate FiO2 06/20/19 10:00 98.0 61 18 111/57 (75) 98 Room Air I&O- Last 24 Hours up to 6 AM 06/20/19 05:59 Intake Total 2150 ml Output Total 1900 ml Balance 250 ml Laboratory Data 24H LABS Laboratory Tests 2 06/19/19 12:54: Bedside Glucose (Misc Panel) 150H 06/19/19 13:38: Clostridium difficile [id number] PRESUMPTIVE NEGATIVE, Clostridium difficile Toxin (PCR) NEGATIVE 06/19/19 16:14: Bedside Glucose (Misc Panel) 174H 06/19/19 21:09: Bedside Glucose (Misc Panel) 120H 06/20/19 05:52: Immature Granulocyte % (Auto) 0.2, Neutrophils (%) (Auto) 33.9L, Lymphocytes (%) (Auto) 52.1H, Monocytes (%) (Auto) 10.6H, Eosinophils (%) (Auto) 2.8, Basophils (%) (Auto) 0.4, Neutrophils # (Auto) 1.6, Lymphocytes # (Auto) 2.4, Monocytes # (Auto) 0.5, Eosinophils # (Auto) 0.1, Basophils # (Auto) 0.0, Nucleated Red Blood Cells % (auto) 0.0, Anion Gap 8, Glomerular Filtration Rate > 60.0, Calcium Level 7.8L, Magnesium Level 1.7L, Total Bilirubin 0.9, Aspartate Amino Transf (AST/SGOT) 37, Alanine Aminotransferase (ALT/SGPT) 30, Alkaline Phosphatase 79, C-Reactive Protein, Quantitative 0.42H, Total Protein 6.2#L, Albumin 2.8#L, Albumin/Globulin Ratio 0.82L, Complement C3 139, Complement C4 24 CBC/BMP Laboratory Tests 06/20/19 05:52 Rafaela PhelpsP Jun 20, 2019 11:32 MELL PETERSEN DO Jun 22, 2019 01:58
[2019-06-20] MEDS ORDERED: KCL 10MEQ/100ML SWI (KRUN) 10 MEQ in IV 1 EA IV ONE (12:00)
[2019-06-20] MEDS ORDERED: oxyCODONE 15 MG CR TAB PO ONE (12:00)
[2019-06-20 14:00] VITALS: BP 145/84
[2019-06-20 18:00] VITALS: BP 127/76
[2019-06-20 22:00] VITALS: BP 117/72
[2019-06-20] MEDS ORDERED: methylPREDNISolone INJ 40 MG/1 ML VIAL (J2920) IV ONE (23:15)
[2019-06-20] MEDS: MORPHINE SULFATE ORAL SOLN 10 MG/5 ML UD PO PRN (23:54)
[2019-06-21 06:00] VITALS: BP 123/68
[2019-06-21 06:12] LABS: BASO % 0.2 % (0.0-1.0); HEMATOCRIT 33.1 % (36.0-47.0); HEMOGLOBIN 10.4 g/dl (12.0-15.5); LYMPH # 0.8 10^3/uL (1.5-5.0); LYMPH % 16.3 % (24.0-44.0); MEAN CORPUSCULAR HEMOGLOBIN 23.6 pg (27.0-33.0); MEAN CORPUSCULAR HGB CONC 31.4 g/dl (32.0-36.5); MEAN CORPUSCULAR VOLUME 75.2 fl (80.0-96.0); MONO # 0.1 10^3/uL (0.0-0.8); MONO % 2.1 % (0.0-5.0); NEUTROPHILS # 3.9 10^3/uL (1.5-8.5); NEUTROPHILS % 81.2 % (36.0-66.0); PLATELET COUNT, AUTOMATED 255 10^3/uL (150-450); WHITE BLOOD COUNT 4.8 10^3/uL (4.0-10.0)
[2019-06-21 06:45] LABS: ALBUMIN 3.1 GM/DL (3.2-5.2); ALT/SGPT 35 U/L (12-78); BILIRUBIN,TOTAL 0.7 MG/DL (0.2-1.0); BLOOD UREA NITROGEN 4 MG/DL (7-18); CALCIUM LEVEL 8.4 MG/DL (8.5-10.1); CARBON DIOXIDE LEVEL 24 MEQ/L (21-32); CHLORIDE LEVEL 110 MEQ/L (98-107); CREATININE FOR GFR 0.73 MG/DL (0.55-1.30); GLOMERULAR FILTRATION RATE > 60.0 (>51); GLUCOSE, FASTING 208 MG/DL (70-100); POTASSIUM SERUM 3.2 MEQ/L (3.5-5.1); SODIUM LEVEL 141 MEQ/L (136-145); TOTAL PROTEIN 7.6 GM/DL (6.4-8.2)
[2019-06-21 08:21] VITALS: BP 142/59
[2019-06-21] MEDS: PROPRANOLOL 80 MG LA CAP PO SCH (08:21)
[2019-06-21] MEDS: HumaLOG INSULIN (NovoLOG) PER UNIT SC SCH (08:22)
[2019-06-21] MEDS: ENOXAPARIN 40 MG/0.4 ML SYRINGE (J1650) SC SCH (08:23)
[2019-06-21] MEDS: KCL 10MEQ/100ML SWI (KRUN) 10 MEQ in IV 1 EA IV SCH ×3 (08:23→10:00)
[2019-06-21] MEDS: NS 1,000 ML IV SCH (08:23)
[2019-06-21] MEDS: MORPHINE SULFATE ORAL SOLN 10 MG/5 ML UD PO PRN (09:32)
[2019-06-21] MEDS ORDERED: POTA20EL PO (09:41)
[2019-06-21 10:00] VITALS: BP 125/65
[2019-06-21] MEDS ORDERED: methylPREDNISolone 80MG/ML SUSP 1ML VIAL (J1040) IM ONE (10:00)
--- NOTE | 2019-06-21 10:21 | DSES ---
DATE OF ADMISSION: 06/19/2019 DATE OF DISCHARGE: 06/21/2019 HISTORY OF PRESENT ILLNESS: This is a 59-year-old female who presented to [facility] Emergency Department (ED) for complaints of severe cramping and abdominal pain. She was also having significant amounts of nausea and diarrhea for approximately 1 week. She was subsequently admitted to family medicine service. HOSPITAL COURSE: The patient was treated with intravenous (IV) fluids. She was noted to have some significant hypokalemia, and supplementation was provided accordingly. Diet was slowly advanced, and she tolerated some soft foods last evening, as well as this morning. Discussion was held with the patient's primary care provider who is recommending Depo-Medrol intramuscular (IM) 80 mg times one to help with lupus flare, as well. Pain control was slightly difficult, given the fact that the patient was requesting liquid oxycodone, which was unavailable in this facility. Pain has been adequately controlled with current regimen, and the patient requested to go back home on her current medications. On physical examination today, vital signs are stable. She is afebrile. Hemoglobin and hematocrit are stable. White blood cell count is stable. Platelets are within normal limits. CMP: She has a low potassium of 3.2. HEENT: Neck is supple without lymphadenopathy or jugular venous distention (JVD). Cardiovascular: Heart rate and rhythm are regular. Pulmonary: Lungs are clear. Abdomen: Is soft and mildly tender. IMAGING: During this hospitalization includes a CT abdomen and pelvis. Findings include fatty infiltration of the liver. Previously seen bowel wall thickening has resolved. Mild stool was noted in the colon. Mild sigmoid diverticulosis without diverticulitis was noted. ASSESSMENT: 1. Diarrhea. 2. Diverticulosis. 3. Hypokalemia. 4. Systemic lupus erythematosus. 5. Chronic pain. 6. Type 2 diabetes. 7. Gastroparesis. 8. Chronic iron-deficiency anemia. PLAN: The patient will be discharged to home. Diet is as tolerated. Activity is as tolerated. The patient will followup with her primary care provider this week with repeat laboratories for her potassium levels. MEDICATIONS: Are as follows: - potassium chloride 20 mEq per 15 mL - she is to take 15 mL by mouth daily for 5 days - diazepam 1 mL by mouth twice a day - erythromycin 400 mg per 5 mL by mouth three times a day as needed bloating - Afinitor 2.5 mg by mouth twice a day - Flonase one spray to each nostril twice a day as needed allergies - medical marijuana 2 mL three times a day - oxycodone HCl extended release 30 mg by mouth three times a day - oxycodone 10 mg by mouth three times a day - propranolol 60 mg by mouth daily The patient is discharged in stable and satisfactory condition. There were no further questions at time of discharge. [facility]
== END 2019-06-21 11:50 | disposition home or self-care (01) | DRG 641 ==
LOC: M ED 21:26 → M ED INP 06-19 01:27 → ENRESERVTM 06-19 01:48 → ENRESERVDT 06-19 01:48 → M MSPAV 06-19 02:14
PROVIDERS: ADMIT Internal Medicine; ATTEND Family Medicine
DX: E87.6 Hypokalemia (principal); K57.30 Diverticulosis of large intestine without perforation or abscess without bleeding; G89.29 Other chronic pain; E11.43 Type 2 diabetes mellitus with diabetic autonomic (poly)neuropathy; M32.10 Systemic lupus erythematosus, organ or system involvement unspecified; D50.9 Iron deficiency anemia, unspecified; Z79.899 Other long term (current) drug therapy; Z95.0 Presence of cardiac pacemaker; K76.0 Fatty (change of) liver, not elsewhere classified; M35.00 Sjogren syndrome, unspecified; F12.90 Cannabis use, unspecified, uncomplicated; R19.7 Diarrhea, unspecified; E66.01 Morbid (severe) obesity due to excess calories; Z88.2 Allergy status to sulfonamides; Z88.0 Allergy status to penicillin; Z91.040 Latex allergy status; Z90.10 Acquired absence of unspecified breast and nipple; Z91.018 Allergy to other foods

== ENCOUNTER → 2019-06-24 | Outpatient (REF) | payer OTHER ==
[~2019-06-24] MED LIST changes: +POTA20EL PO
[2019-06-24 14:07] LABS: BLOOD UREA NITROGEN 12 MG/DL (7-18); CALCIUM LEVEL 9.1 MG/DL (8.5-10.1); CARBON DIOXIDE LEVEL 28 MEQ/L (21-32); CHLORIDE LEVEL 103 MEQ/L (98-107); CREATININE FOR GFR 0.96 MG/DL (0.55-1.30); GLOMERULAR FILTRATION RATE > 60.0 (>51); GLUCOSE, FASTING 159 MG/DL (70-100); POTASSIUM SERUM 3.6 MEQ/L (3.5-5.1); SODIUM LEVEL 139 MEQ/L (136-145)
== END ==
LOC: M SFHCPLAZ 09:32
PROVIDERS: ATTEND Family Medicine
DX: E87.6 Hypokalemia (principal); R73.9 Hyperglycemia, unspecified

== ENCOUNTER → 2019-07-20 | Outpatient (REF) | payer OTHER ==
[2019-07-20 12:12] LABS: BLOOD UREA NITROGEN 13 MG/DL (7-18); CALCIUM LEVEL 9.2 MG/DL (8.5-10.1); CARBON DIOXIDE LEVEL 29 MEQ/L (21-32); CHLORIDE LEVEL 105 MEQ/L (98-107); CREATININE FOR GFR 0.93 MG/DL (0.55-1.30); GLOMERULAR FILTRATION RATE > 60.0 (>51); GLUCOSE, FASTING 198 MG/DL (70-100); MAGNESIUM LEVEL 1.9 MG/DL (1.8-2.4); POTASSIUM SERUM 4.7 MEQ/L (3.5-5.1); SODIUM LEVEL 139 MEQ/L (136-145)
== END ==
LOC: M SFHCPLAZ 09:30
PROVIDERS: ATTEND Family Medicine
DX: E11.9 Type 2 diabetes mellitus without complications (principal); M62.838 Other muscle spasm

== ENCOUNTER → 2020-03-22 | Outpatient (REF) | payer OTHER ==
[~2020-03-22] MED LIST changes: -PROC5TA PO; +PROC5TAB57 PO
[2020-03-22 17:45] LABS: HEMATOCRIT 35.7 % (36.0-47.0); HEMOGLOBIN 11.2 g/dl (12.0-15.5); MEAN CORPUSCULAR HEMOGLOBIN 24.7 pg (27.0-33.0); MEAN CORPUSCULAR HGB CONC 31.4 g/dl (32.0-36.5); MEAN CORPUSCULAR VOLUME 78.6 fl (80.0-96.0); PLATELET COUNT, AUTOMATED 288 10^3/uL (150-450); RED BLOOD COUNT 4.54 10^6/uL (4.00-5.40); WHITE BLOOD COUNT 7.1 10^3/uL (4.0-10.0)
[2020-03-22 18:14] LABS: ALBUMIN 3.5 GM/DL (3.2-5.2); ALT/SGPT 17 U/L (12-78); BILIRUBIN,TOTAL 0.6 MG/DL (0.2-1.0); BLOOD UREA NITROGEN 13 MG/DL (7-18); C REACTIVE PROTEIN QUANTITATIV 1.53 MG/DL (0.00-0.30); CALCIUM LEVEL 8.9 MG/DL (8.5-10.1); CARBON DIOXIDE LEVEL 29 MEQ/L (21-32); CHLORIDE LEVEL 105 MEQ/L (98-107); CREATININE FOR GFR 0.97 MG/DL (0.55-1.30); GLOMERULAR FILTRATION RATE > 60.0 (>51); GLUCOSE, FASTING 104 MG/DL (70-100); POTASSIUM SERUM 4.4 MEQ/L (3.5-5.1); SODIUM LEVEL 138 MEQ/L (136-145); TOTAL PROTEIN 7.8 GM/DL (6.4-8.2)
[2020-03-22 18:38] LABS: MALB URINE SIEMENS 15.8 MG/L; MAU/CREAT RATIO 6.1 MCG/MG (0.0-30.0)
== END ==
LOC: M SFHCPLAZ 15:35
PROVIDERS: ATTEND Family Medicine
DX: D64.9 Anemia, unspecified (principal); M32.9 Systemic lupus erythematosus, unspecified; E11.9 Type 2 diabetes mellitus without complications; L93.0 Discoid lupus erythematosus
CPT/HCPCS: 36415; 80053; 82043; 83036; 85027; 86140; G0463; J1040

== ENCOUNTER → 2020-03-30 | Outpatient (REF) | payer OTHER ==
[2020-03-30 18:07] LABS: ALBUMIN 3.5 GM/DL (3.2-5.2); BLOOD UREA NITROGEN 19 MG/DL (7-18); CALCIUM LEVEL 9.3 MG/DL (8.5-10.1); CARBON DIOXIDE LEVEL 30 MEQ/L (21-32); CHLORIDE LEVEL 104 MEQ/L (98-107); GLOMERULAR FILTRATION RATE > 60.0 (>51); GLUCOSE, FASTING 99 MG/DL (70-100); MAGNESIUM LEVEL 1.9 MG/DL (1.8-2.4); PHOSPHORUS LEVEL 4.7 MG/DL (2.5-4.9); POTASSIUM SERUM 4.7 MEQ/L (3.5-5.1); SODIUM LEVEL 139 MEQ/L (136-145)
== END ==
LOC: M SFHCPLAZ 14:57
PROVIDERS: ATTEND Family Medicine
DX: M32.9 Systemic lupus erythematosus, unspecified (principal); K31.84 Gastroparesis; E83.42 Hypomagnesemia; E87.6 Hypokalemia

== ENCOUNTER → 2021-04-05 | Outpatient (REF) | payer OTHER ==
[~2021-04-05] MED LIST changes: -DICY20TA11 PO; +DICY20TA20 PO; +ONDA-84 PO; -ONDA8TAB10 PO; +SIME80CH5 PO; -SIME80TA PO
== END ==
LOC: M LAB REF 16:50
PROVIDERS: ATTEND Family Medicine
DX: L30.8 Other specified dermatitis (principal); M32.9 Systemic lupus erythematosus, unspecified; E09.9 Drug or chemical induced diabetes mellitus without complications
CPT/HCPCS: 11311; 36415; 80053; 82043; 83036; 85025; 85652; 86140; 88300; 96372; G0463; J1040

== ENCOUNTER → 2021-04-05 | Outpatient (CLI) | payer OTHER ==
[2021-04-05 15:20] LABS: BASO % 0.4 % (0.0-1.0); EOS % 0.3 % (0.0-3.0); HEMATOCRIT 37.5 % (36.0-47.0); HEMOGLOBIN 11.8 g/dl (12.0-15.5); LYMPH # 1.5 10^3/uL (1.5-5.0); MEAN CORPUSCULAR HEMOGLOBIN 25.1 pg (27.0-33.0); MEAN CORPUSCULAR HGB CONC 31.5 g/dl (32.0-36.5); MEAN CORPUSCULAR VOLUME 79.8 fl (80.0-96.0); MONO # 0.5 10^3/uL (0.0-0.8); MONO % 4.7 % (2.0-8.0); NEUTROPHILS # 7.7 10^3/uL (1.5-8.5); NEUTROPHILS % 79.3 % (36.0-66.0); PLATELET COUNT, AUTOMATED 327 10^3/uL (150-450); WHITE BLOOD COUNT 9.7 10^3/uL (4.0-10.0)
[2021-04-05 15:41] LABS: HEMOGLOBIN A1c 6.5 %
[2021-04-05 15:45] LABS: ALBUMIN 3.5 GM/DL (3.2-5.2); ALT/SGPT 14 U/L (12-78); BILIRUBIN,TOTAL 0.8 MG/DL (0.2-1.0); BLOOD UREA NITROGEN 18 MG/DL (7-18); CALCIUM LEVEL 9.3 MG/DL (8.5-10.1); CARBON DIOXIDE LEVEL 27 MEQ/L (21-32); CHLORIDE LEVEL 105 MEQ/L (98-107); CREATININE FOR GFR 0.99 MG/DL (0.55-1.30); GLOMERULAR FILTRATION RATE > 60.0 (>51); GLUCOSE, FASTING 175 MG/DL (70-100); POTASSIUM SERUM 4.3 MEQ/L (3.5-5.1); SODIUM LEVEL 139 MEQ/L (136-145); TOTAL PROTEIN 7.7 GM/DL (6.4-8.2)
[2021-04-05 15:55] LABS: ERYTHROCYTE SEDIMENTATION RATE 29 mm/hr (0-30)
[2021-04-05 16:03] LABS: MALB URINE SIEMENS 32.9 MG/L; MAU/CREAT RATIO 10.7 MCG/MG (0.0-30.0)
== END ==
LOC: M PLALAB 12:56
PROVIDERS: ATTEND Family Medicine
DX: E09.9 Drug or chemical induced diabetes mellitus without complications (principal); M32.9 Systemic lupus erythematosus, unspecified

== ENCOUNTER → 2021-12-25 | Outpatient (CLI) | payer OTHER ==
[~2021-12-25] MED LIST changes: +ALBU2.5V10 INH; +ALPR0.5T3; +ESTR0.1C5; +PLAQ200T4
== END ==
LOC: M PLAIMG 13:58
PROVIDERS: ATTEND Student in an Organized Health Care Education/Training Program
DX: M79.671 Pain in right foot (principal)

== ENCOUNTER → 2022-09-08 | Outpatient (CLI) | payer OTHER ==
[~2022-09-08] MED LIST changes: +FLUT50SP17; -FLUTISP; +NYST-38 SS; -NYST50SS SS; -OXYC-405 PO; +OXYC40TA40 PO; +PRED15SO24 PO; -PRED5SOL10 PO
[2022-09-08 13:33] LABS: FERRITIN 25.1 NG/ML (7.3-270.7)
[2022-09-08 13:34] LABS: C REACTIVE PROTEIN QUANTITATIV < 0.40 MG/DL (<1.0)
[2022-09-08 13:38] LABS: IRON (FE) 59 UG/DL (50-170)
[2022-09-08 13:39] LABS: ALBUMIN 3.7 G/DL (3.2-5.2); ALKALINE PHOSPHATASE 89 U/L (46-116); ALT/SGPT < 9 U/L (7.0-40); AST/SGOT 21 U/L (<34); BILIRUBIN,TOTAL 0.9 MG/DL (0.3-1.2); BLOOD UREA NITROGEN 15 MG/DL (9-23); CALCIUM LEVEL 8.9 MG/DL (8.3-10.6); CARBON DIOXIDE LEVEL 27 MMOL/L (20-31); CHLORIDE LEVEL 105 MMOL/L (98-107); CHOLESTEROL LEVEL 154 MG/DL (<200); CHOLESTEROL RISK RATIO 2.52 (<5); CREATININE FOR GFR 0.73 MG/DL (0.55-1.30); GLOMERULAR FILTRATION RATE > 60.0 (>45); GLUCOSE, FASTING 126 MG/DL (74-106); HDL CHOLESTEROL 61.1 MG/DL (>40); LDL CHOLESTEROL 66.5 MG/DL (<100); MAGNESIUM LEVEL 1.8 MG/DL (1.8-2.4); NON-HDL-C 92.9 MG/DL; POTASSIUM SERUM 3.6 MMOL/L (3.5-5.1); SODIUM LEVEL 140 MMOL/L (136-145); TOTAL PROTEIN 7.6 G/DL (5.7-8.2); TRIGLYCERIDES LEVEL 132 MG/DL (<150)
[2022-09-08 14:05] LABS: CREATININE,RANDOM URINE 276.5 MG/DL
[2022-09-08 14:43] LABS: HEMOGLOBIN A1c 6.9 % (4.0-6.0)
== END ==
LOC: M PLALAB 09:31
PROVIDERS: ATTEND Family Medicine
DX: M32.19 Other organ or system involvement in systemic lupus erythematosus (principal); G89.4 Chronic pain syndrome; Z95.0 Presence of cardiac pacemaker; Z13.220 Encounter for screening for lipoid disorders; E03.9 Hypothyroidism, unspecified; D64.9 Anemia, unspecified

== ENCOUNTER → 2022-10-22 | Outpatient (CLI) | payer OTHER ==
[~2022-10-22] MED LIST changes: +GASTROGRAFIN SOLUTION 30ML As Ordered ONE; +ISOVUE-370 76% 100ML VIAL As Ordered ONE
== END ==
LOC: M RAD 06:58
PROVIDERS: ATTEND Family Medicine
DX: R19.02 Left upper quadrant abdominal swelling, mass and lump (principal); K76.89 Other specified diseases of liver; N28.1 Cyst of kidney, acquired; K57.90 Diverticulosis of intestine, part unspecified, without perforation or abscess without bleeding
CPT/HCPCS: 74178; Q9963; Q9967

== ENCOUNTER → 2023-05-15 | Outpatient (REF) | payer OTHER ==
[~2023-05-15] MED LIST changes: -FLUT50SP17; +FLUTISP; -GASTROGRAFIN SOLUTION 30ML As Ordered ONE; -ISOVUE-370 76% 100ML VIAL As Ordered ONE
== END ==
LOC: M SFHCPLAZ 16:32
PROVIDERS: ATTEND Student in an Organized Health Care Education/Training Program
DX: Z53.9 Procedure and treatment not carried out, unspecified reason (principal)

== ENCOUNTER → 2023-05-25 | Outpatient (REF) | payer OTHER | LOC: M SFHCWAGY 13:50 | PROVIDERS: ATTEND Student in an Organized Health Care Education/Training Program | DX: J98.9 Respiratory disorder, unspecified (principal) | CPT/HCPCS: 87205; G0463 ==

== ENCOUNTER → 2023-05-26 | Outpatient (CLI) | payer OTHER | LOC: M RAD 13:48 | PROVIDERS: ATTEND Student in an Organized Health Care Education/Training Program | DX: J98.9 Respiratory disorder, unspecified (principal); Z95.0 Presence of cardiac pacemaker ==

== ENCOUNTER → 2023-05-26 | Outpatient (REF) | payer OTHER | LOC: M SFHCPLAZ 15:57 | PROVIDERS: ATTEND Internal Medicine Hematology | DX: J98.9 Respiratory disorder, unspecified (principal); R06.2 Wheezing ==

== ENCOUNTER → 2023-07-27 | Outpatient (CLI) | payer OTHER ==
[~2023-07-27] MED LIST changes: +ALBU2.5V10; +DIAZ5CON; +FENT1DIS34; -POTA20EL PO; +POTA20LI16 PO
[2023-07-27 16:19] LABS: BLOOD UREA NITROGEN 16 MG/DL (9-23); CALCIUM LEVEL 8.1 MG/DL (8.3-10.6); CARBON DIOXIDE LEVEL 24 MMOL/L (20-31); CHLORIDE LEVEL 107 MMOL/L (98-107); CREATININE FOR GFR 0.65 MG/DL (0.55-1.30); GLOMERULAR FILTRATION RATE > 60.0 (>45); GLUCOSE, FASTING 176 MG/DL (74-106); MAGNESIUM LEVEL 1.6 MG/DL (1.8-2.4); POTASSIUM SERUM 4.3 MMOL/L (3.5-5.1); SODIUM LEVEL 140 MMOL/L (136-145)
== END ==
LOC: M PLALAB 14:27
PROVIDERS: ATTEND Student in an Organized Health Care Education/Training Program
DX: R55 Syncope and collapse (principal)

== ENCOUNTER → 2023-08-10 | Outpatient (CLI) | payer OTHER ==
[2023-08-10 16:00] LABS: BLOOD UREA NITROGEN 13 MG/DL (9-23); CALCIUM LEVEL 8.9 MG/DL (8.3-10.6); CARBON DIOXIDE LEVEL 26 MMOL/L (20-31); CHLORIDE LEVEL 107 MMOL/L (98-107); CREATININE FOR GFR 0.75 MG/DL (0.55-1.30); GLOMERULAR FILTRATION RATE > 60.0 (>45); GLUCOSE, FASTING 170 MG/DL (74-106); MAGNESIUM LEVEL 1.7 MG/DL (1.8-2.4); POTASSIUM SERUM 3.5 MMOL/L (3.5-5.1); SODIUM LEVEL 139 MMOL/L (136-145)
== END ==
LOC: M PLALAB 14:01
PROVIDERS: ATTEND Student in an Organized Health Care Education/Training Program
DX: E83.42 Hypomagnesemia (principal)

== ENCOUNTER → 2023-09-01 | Outpatient (CLI) | payer OTHER ==
[~2023-09-01] MED LIST changes: +OLME20TA50 PO; +PRED20TA PO
== END ==
LOC: M RAD 12:19
PROVIDERS: ATTEND Nurse Practitioner Family
DX: I97.621 Postprocedural hematoma of a circulatory system organ or structure following other procedure (principal)

== ENCOUNTER 2023-09-06 11:49 | Emergency (ER) | payer OTHER ==
[~2023-09-06] VITALS: Ht 157.5 cm; Wt 61.4 kg
[2023-09-06 11:49] VITALS: TEMP 98.4
[~2023-09-06 11:49] MED LIST changes: -OLME20TA50 PO; -PRED20TA PO
[2023-09-06 12:23] LABS: BASO # 0.1 10^3/uL (0.0-0.2); BASO % 0.5 % (0.0-1.0); EOS # 0.1 10^3/uL (0.0-0.5); EOS % 0.6 % (0.0-3.0); HEMATOCRIT 37.9 % (36.0-47.0); HEMOGLOBIN 12.6 g/dl (12.0-15.5); LYMPH # 2.8 10^3/uL (1.5-5.0); LYMPH % 26.7 % (24.0-44.0); MEAN CORPUSCULAR HEMOGLOBIN 27.5 pg (27.0-33.0); MEAN CORPUSCULAR HGB CONC 33.2 g/dl (32.0-36.5); MEAN CORPUSCULAR VOLUME 82.8 fl (80.0-96.0); MONO # 0.7 10^3/uL (0.0-0.8); MONO % 6.5 % (2.0-8.0); NEUTROPHILS # 6.8 10^3/uL (1.5-8.5); NEUTROPHILS % 65.5 % (36.0-66.0); PLATELET COUNT, AUTOMATED 321 10^3/uL (150-450); RED BLOOD COUNT 4.58 10^6/uL (4.00-5.40); WHITE BLOOD COUNT 10.4 10^3/uL (4.0-10.0)
[2023-09-06 12:59] LABS: BLOOD UREA NITROGEN 17 MG/DL (9-23); CALCIUM LEVEL 9.1 MG/DL (8.3-10.6); CARBON DIOXIDE LEVEL 22 MMOL/L (20-31); CHLORIDE LEVEL 107 MMOL/L (98-107); CK-MB VALUE MASS < 1.0 NG/ML (<3.6); CREATININE FOR GFR 0.65 MG/DL (0.55-1.30); GLOMERULAR FILTRATION RATE > 60.0 (>45); GLUCOSE, FASTING 146 MG/DL (74-106); POTASSIUM SERUM 4.2 MMOL/L (3.5-5.1); SODIUM LEVEL 140 MMOL/L (136-145)
[2023-09-06 13:09] LABS: CPK CREATINE PHOSPHOKINASE 88 U/L (34-145); MB/CK RELATIVE INDEX 1.13 (< OR =4)
[2023-09-06 14:31] LABS: ERYTHROCYTE SEDIMENTATION RATE 39 mm/hr (0-30)
[2023-09-06 15:26] LABS: C REACTIVE PROTEIN QUANTITATIV < 0.40 MG/DL (<1.0); ETHYL ALCOHOL (ETHANOL) 0.004 % (0.000-0.010)
[2023-09-06 15:32] LABS: THYROID STIMULATING HORMONE 0.211 uIU/ML (0.55-4.78)
[2023-09-06 15:47] LABS: CK-MB VALUE MASS < 1.0 NG/ML (<3.6); CPK CREATINE PHOSPHOKINASE 50 U/L (34-145)
[2023-09-06 15:49] LABS: AMPHETAMINES LEVEL URINE NEGATIVE (NEGATIVE); BARBITURATES URINE NEGATIVE (NEGATIVE)
[2023-09-06 15:50] LABS: BENZODIAZEPINES URINE POSITIVE (NEGATIVE); CANNABINOIDS URINE POSITIVE (NEGATIVE); COCAINE METABOLITE URINE NEGATIVE (NEGATIVE); METHADONE URINE NEGATIVE (NEGATIVE); OPIATES URINE POSITIVE (NEGATIVE); PHENCYCLIDINE URINE NEGATIVE (NEGATIVE)
[2023-09-06 17:00] VITALS: BP 146/98
[2023-09-06 17:17] LABS: FREE T4 0.97 NG/DL (0.89-1.76)
[2023-09-06 17:19] VITALS: O2SAT 98
[2023-09-06] MEDS ORDERED: ISOVUE-370 76% 100ML VIAL As Ordered ONE (17:41)
[2023-09-06] MEDS ORDERED: MED REC IN PROGRESS XX SCH (19:15)
[2023-09-06] MEDS: OLMESARTAN MEDOXOMIL 20 MG TAB (BENICAR) PO ONE (19:39)
[2023-09-06] MEDS: predniSONE 20 MG TAB PO ONE (19:39)
[2023-09-06] MEDS ORDERED: PRED20TA PO (19:46)
[2023-09-06] MEDS ORDERED: OLME20TA50 PO (19:46)
== END 2023-09-06 20:23 | disposition home or self-care (01) ==
LOC: M ED 11:49
DX: R07.89 Other chest pain (principal); I11.0 Hypertensive heart disease with heart failure; M32.9 Systemic lupus erythematosus, unspecified; E11.9 Type 2 diabetes mellitus without complications; J45.909 Unspecified asthma, uncomplicated; Z95.0 Presence of cardiac pacemaker; M35.00 Sjogren syndrome, unspecified; I73.00 Raynaud's syndrome without gangrene; Z79.899 Other long term (current) drug therapy; Z88.0 Allergy status to penicillin; Z88.2 Allergy status to sulfonamides; Z88.8 Allergy status to other drugs, medicaments and biological substances; Z91.040 Latex allergy status; Z91.010 Allergy to peanuts; Z91.018 Allergy to other foods
CPT/HCPCS: 70450; 71045; 71275; 80048; 80307; 81001; 82077; 82550; 82553; 84439; 84443; 84484; 85025; 85652; 86140; 87040; 93005; 93041; 99285; J7512; Q9967

== ENCOUNTER → 2023-09-07 | Outpatient (CLI) | payer OTHER ==
[~2023-09-07] MED LIST changes: +OLME20TA50 PO; +PRED20TA PO
== END ==
LOC: M CARPUL 13:00
PROVIDERS: ATTEND Student in an Organized Health Care Education/Training Program
DX: R07.9 Chest pain, unspecified (principal)

== ENCOUNTER → 2023-09-23 | Outpatient (CLI) | payer OTHER | LOC: M RAD 17:16 | PROVIDERS: ATTEND Physician Assistant | DX: R05.9 Cough, unspecified (principal); R06.02 Shortness of breath; M19.041 Primary osteoarthritis, right hand; M19.042 Primary osteoarthritis, left hand; M47.9 Spondylosis, unspecified ==

== ENCOUNTER → 2023-11-16 | Outpatient (REF) | payer OTHER ==
[2023-11-16 15:47] LABS: BASO % 0.6 % (0.0-1.0); EOS # 0.2 10^3/uL (0.0-0.5); EOS % 2.4 % (0.0-3.0); HEMATOCRIT 34.1 % (36.0-47.0); HEMOGLOBIN 10.9 g/dl (12.0-15.5); LYMPH # 2.9 10^3/uL (1.5-5.0); MEAN CORPUSCULAR HEMOGLOBIN 27.7 pg (27.0-33.0); MEAN CORPUSCULAR VOLUME 86.5 fl (80.0-96.0); MONO # 0.8 10^3/uL (0.0-0.8); MONO % 12.5 % (2.0-8.0); NEUTROPHILS # 2.4 10^3/uL (1.5-8.5); NEUTROPHILS % 38.2 % (36.0-66.0); PLATELET COUNT, AUTOMATED 245 10^3/uL (150-450); RED BLOOD COUNT 3.94 10^6/uL (4.00-5.40); WHITE BLOOD COUNT 6.3 10^3/uL (4.0-10.0)
[2023-11-16 16:14] LABS: ALBUMIN 3.7 G/DL (3.2-5.2); ALKALINE PHOSPHATASE 98 U/L (46-116); ALT/SGPT 23 U/L (7.0-40); AST/SGOT 28 U/L (<34); BLOOD UREA NITROGEN 28 MG/DL (9-23); CALCIUM LEVEL 8.9 MG/DL (8.3-10.6); CARBON DIOXIDE LEVEL 28 MMOL/L (20-31); CHLORIDE LEVEL 103 MMOL/L (98-107); CREATININE FOR GFR 0.75 MG/DL (0.55-1.30); GLOMERULAR FILTRATION RATE > 60.0 (>45); GLUCOSE, FASTING 117 MG/DL (74-106); MAGNESIUM LEVEL 1.8 MG/DL (1.8-2.4); POTASSIUM SERUM 3.4 MMOL/L (3.5-5.1); SODIUM LEVEL 138 MMOL/L (136-145); TOTAL PROTEIN 7.2 G/DL (5.7-8.2)
== END ==
LOC: M SFHCPLAZ 15:02
PROVIDERS: ATTEND Physician Assistant Medical
DX: R25.2 Cramp and spasm (principal); E83.42 Hypomagnesemia

== ENCOUNTER → 2024-02-26 | Outpatient (CLI) | payer OTHER | LOC: M PLAIMG 14:46 | PROVIDERS: ATTEND Student in an Organized Health Care Education/Training Program | DX: M25.511 Pain in right shoulder (principal) ==

== ENCOUNTER → 2024-03-09 | Outpatient (CLI) | payer OTHER ==
[2024-03-09 17:49] LABS: HEMATOCRIT 32.4 % (36.0-47.0); HEMOGLOBIN 10.3 g/dl (12.0-15.5); MEAN CORPUSCULAR HEMOGLOBIN 26.8 pg (27.0-33.0); MEAN CORPUSCULAR HGB CONC 31.8 g/dl (32.0-36.5); MEAN CORPUSCULAR VOLUME 84.4 fl (80.0-96.0); PLATELET COUNT, AUTOMATED 315 10^3/uL (150-450); RED BLOOD COUNT 3.84 10^6/uL (4.00-5.40); WHITE BLOOD COUNT 12.6 10^3/uL (4.0-10.0)
[2024-03-09 17:53] LABS: C REACTIVE PROTEIN QUANTITATIV < 0.40 MG/DL (<1.0)
[2024-03-09 17:55] LABS: ALBUMIN 3.3 G/DL (3.2-5.2); ALKALINE PHOSPHATASE 97 U/L (46-116); ALT/SGPT 18 U/L (7.0-40); AST/SGOT 12 U/L (<34); BILIRUBIN,TOTAL 0.5 MG/DL (0.3-1.2); BLOOD UREA NITROGEN 31 MG/DL (9-23); CARBON DIOXIDE LEVEL 26 MMOL/L (20-31); CHLORIDE LEVEL 106 MMOL/L (98-107); GLOMERULAR FILTRATION RATE > 60.0 (>45); GLUCOSE, FASTING 322 MG/DL (74-106); POTASSIUM SERUM 4.8 MMOL/L (3.5-5.1); SODIUM LEVEL 137 MMOL/L (136-145)
[2024-03-09 17:58] LABS: ERYTHROCYTE SEDIMENTATION RATE 35 mm/hr (0-30)
[2024-03-09 18:43] LABS: CREATININE, URINE 141.4 MG/DL
[2024-03-09 18:45] LABS: MAU/CREAT RATIO 2.1 MCG/MG (0.0-30.0)
== END ==
LOC: M PLALAB 14:51
PROVIDERS: ATTEND Family Medicine
DX: M32.19 Other organ or system involvement in systemic lupus erythematosus (principal)

== ENCOUNTER → 2024-04-08 | Outpatient (CLI) | payer OTHER ==
[~2024-04-08] MED LIST changes: +LEVO75TAB PO; +LISI10TA22; +OXYC5SOL11; +OXYC60TA8; +POTA10CA70
[2024-04-08 17:09] LABS: APPEARANCE, URINE HAZY (CLEAR); BACTERIA, URINE AUTO NEGATIVE (NEGATIVE); BILIRUBIN, URINE AUTO NEGATIVE (NEGATIVE); BLOOD, URINE BLOOD NEGATIVE (NEGATIVE); COLOR, URINE YELLOW (YELLOW); GLUCOSE, URINE (UA) AUTO NEGATIVE (NEGATIVE); KETONE, URINE AUTO 1+ mg/dL (NEGATIVE); LEUKOCYTE ESTERASE, URINE AUTO NEGATIVE (NEGATIVE); MUCUS, URINE SMALL (NEGATIVE); NITRITE, URINE AUTO NEGATIVE (NEGATIVE); PROTEIN, URINE AUTO NEGATIVE (NEGATIVE); RBC, URINE AUTO 1 /HPF (0-3); SPECIFIC GRAVITY URINE AUTO 1.021 (1.002-1.035); SQUAMOUS EPITHELIAL CELL UR AU 4 /HPF (0-6); WBC, URINE AUTO 5 /HPF (0-3)
[2024-04-08 17:14] LABS: BASO % 0.3 % (0.0-1.0); EOS # 0.1 10^3/uL (0.0-0.5); EOS % 0.5 % (0.0-3.0); HEMATOCRIT 37.9 % (36.0-47.0); LYMPH # 2.8 10^3/uL (1.5-5.0); LYMPH % 26.7 % (24.0-44.0); MEAN CORPUSCULAR HGB CONC 31.7 g/dl (32.0-36.5); MEAN CORPUSCULAR VOLUME 85.4 fl (80.0-96.0); MONO # 0.8 10^3/uL (0.0-0.8); MONO % 8.1 % (2.0-8.0); NEUTROPHILS # 6.6 10^3/uL (1.5-8.5); PLATELET COUNT, AUTOMATED 421 10^3/uL (150-450); RED BLOOD COUNT 4.44 10^6/uL (4.00-5.40); WHITE BLOOD COUNT 10.4 10^3/uL (4.0-10.0)
[2024-04-08 21:04] LABS: ERYTHROCYTE SEDIMENTATION RATE 73 mm/hr (0-30)
== END ==
LOC: M PLALAB 15:53
PROVIDERS: ATTEND Student in an Organized Health Care Education/Training Program
DX: R10.84 Generalized abdominal pain (principal)

== ENCOUNTER → 2024-04-08 | Outpatient (CLI) | payer OTHER | LOC: M LAB 16:26 | PROVIDERS: ATTEND Student in an Organized Health Care Education/Training Program | DX: R10.84 Generalized abdominal pain (principal) ==

== ENCOUNTER 2024-04-09 14:52 | Emergency (ER) | payer OTHER ==
[~2024-04-09] VITALS: Ht 157.5 cm; Wt 62.0 kg
[~2024-04-09 14:52] MED LIST changes: -LEVO75TAB PO; -LISI10TA22; -OXYC5SOL11; -OXYC60TA8; -POTA10CA70
[2024-04-09] MEDS ORDERED: LISI10TA22 (15:08)
[2024-04-09] MEDS ORDERED: OXYC5SOL11 (15:08)
[2024-04-09] MEDS ORDERED: OXYC60TA8 (15:08)
[2024-04-09] MEDS ORDERED: POTA10CA70 (15:08)
[2024-04-09] MEDS ORDERED: ISOVUE-370 76% 100ML VIAL As Ordered ONE (15:52)
[2024-04-09 15:59] LABS: BASO # 0.1 10^3/uL (0.0-0.2); BASO % 0.4 % (0.0-1.0); EOS # 0.1 10^3/uL (0.0-0.5); EOS % 0.6 % (0.0-3.0); HEMATOCRIT 36.4 % (36.0-47.0); HEMOGLOBIN 11.9 g/dl (12.0-15.5); LYMPH # 3.6 10^3/uL (1.5-5.0); LYMPH % 28.2 % (24.0-44.0); MEAN CORPUSCULAR HEMOGLOBIN 27.6 pg (27.0-33.0); MEAN CORPUSCULAR HGB CONC 32.7 g/dl (32.0-36.5); MEAN CORPUSCULAR VOLUME 84.5 fl (80.0-96.0); MONO # 1.2 10^3/uL (0.0-0.8); MONO % 9.5 % (2.0-8.0); NEUTROPHILS # 7.7 10^3/uL (1.5-8.5); NEUTROPHILS % 60.8 % (36.0-66.0); PLATELET COUNT, AUTOMATED 440 10^3/uL (150-450); RED BLOOD COUNT 4.31 10^6/uL (4.00-5.40); WHITE BLOOD COUNT 12.6 10^3/uL (4.0-10.0)
[2024-04-09] MEDS: NS 1,000 ML IV ONE ×2 (15:59→16:55)
[2024-04-09 16:25] LABS: INR 1.07; PARTIAL THROMBOPLASTIN TIME 29.7 SECONDS (24.8-34.2); PROTHROMBIN TIME 14.2 SECONDS (12.5-14.5)
[2024-04-09 16:27] LABS: LIPASE 36 U/L (12-53)
[2024-04-09 16:29] LABS: ALBUMIN 3.4 G/DL (3.2-5.2); ALKALINE PHOSPHATASE 86 U/L (35-104); ALT/SGPT 13 U/L (7.0-40); AMYLASE 62 U/L (30-118); AST/SGOT 20 U/L (<34); BILIRUBIN,DIRECT 0.2 MG/DL (<0.4); BILIRUBIN,TOTAL 0.9 MG/DL (0.3-1.2); BLOOD UREA NITROGEN 21 MG/DL (9-23); CALCIUM LEVEL 9.5 MG/DL (8.3-10.6); CARBON DIOXIDE LEVEL 23 MMOL/L (20-31); CHLORIDE LEVEL 104 MMOL/L (98-107); CREATININE FOR GFR 0.87 MG/DL (0.55-1.30); GLOMERULAR FILTRATION RATE > 60.0 (>45); GLUCOSE, FASTING 177 MG/DL (74-106); POTASSIUM SERUM 4.3 MMOL/L (3.5-5.1); SODIUM LEVEL 136 MMOL/L (136-145); TOTAL PROTEIN 7.9 G/DL (5.7-8.2)
[2024-04-09] MEDS: fentaNYL 100 MCG/2 ML INJECTION IV PRN (16:35)
[2024-04-09] MEDS: GASTROGRAFIN SOLUTION 30ML PO SCH (16:36)
[2024-04-09 17:09] LABS: Trichomonas vaginalis (AMP) NOT DETECTED (NEGATIVE)
[2024-04-09 17:33] LABS: GC DNA AMPLIFICATION NEGATIVE (NEGATIVE)
[2024-04-09 17:40] VITALS: TEMP 97.4
[2024-04-09] MEDS: LevoFLOXacin IV 750 MG in IV 1 EA IV ONE (17:41)
[2024-04-09 18:30] VITALS: BP 136/72; O2SAT 97
[2024-04-09] MEDS ORDERED: LEVO75TAB PO (22:39)
== END 2024-04-09 23:09 | disposition left against medical advice (07) ==
LOC: M ED 14:52
DX: N93.9 Abnormal uterine and vaginal bleeding, unspecified (principal); N82.3 Fistula of vagina to large intestine; N28.1 Cyst of kidney, acquired; M32.9 Systemic lupus erythematosus, unspecified; K57.92 Diverticulitis of intestine, part unspecified, without perforation or abscess without bleeding; E11.9 Type 2 diabetes mellitus without complications; D50.9 Iron deficiency anemia, unspecified; J45.909 Unspecified asthma, uncomplicated; G43.909 Migraine, unspecified, not intractable, without status migrainosus; M35.00 Sjogren syndrome, unspecified; F12.10 Cannabis abuse, uncomplicated; Z88.0 Allergy status to penicillin; Z88.1 Allergy status to other antibiotic agents; Z88.2 Allergy status to sulfonamides; Z88.5 Allergy status to narcotic agent; Z88.8 Allergy status to other drugs, medicaments and biological substances; Z91.010 Allergy to peanuts; Z91.018 Allergy to other foods; Z91.013 Allergy to seafood; Z79.52 Long term (current) use of systemic steroids; Z79.811 Long term (current) use of aromatase inhibitors; Z79.899 Other long term (current) drug therapy; Z53.9 Procedure and treatment not carried out, unspecified reason
CPT/HCPCS: 71045; 74177; 80047; 80048; 80076; 81001; 82150; 83605; 83690; 85025; 85610; 85730; 86850; 86900; 86901; 87040; 87086; 87210; 87661; 87810; 87850; 93005; 93041; 96361; 96365; 96366; 96375; 96376; 99284; J1956; J3010; Q9963; Q9967

== ENCOUNTER 2024-05-25 12:32 | Inpatient (IN) | payer OTHER ==
[~2024-05-25] VITALS: Ht 157.5 cm; Wt 61.5 kg
[~2024-05-25 12:32] MED LIST changes: -ALBU2.5V10; -DIAZ5CON; +LEVO75TAB PO; +LISI10TA22 PO; +OXYC5SOL11; +OXYC60TA8; +POTA10CA70 PO
[2024-05-25] MEDS: [UNRECOGNIZED DRUG - OTHER] IV ONE (12:59)
[2024-05-25] MEDS: NS 0.9% IV ONE (12:59)
[2024-05-25 13:44] LABS: BASO # 0.1 10^3/uL (0.0-0.2); BASO % 0.6 % (0.0-1.0); EOS # 0.3 10^3/uL (0.0-0.5); EOS % 3.3 % (0.0-3.0); HEMATOCRIT 30.8 % (36.0-47.0); HEMOGLOBIN 9.7 g/dl (12.0-15.5); LYMPH # 2.3 10^3/uL (1.5-5.0); LYMPH % 28.6 % (24.0-44.0); MEAN CORPUSCULAR HGB CONC 31.5 g/dl (32.0-36.5); MEAN CORPUSCULAR VOLUME 88.8 fl (80.0-96.0); MONO % 12.7 % (2.0-8.0); NEUTROPHILS # 4.5 10^3/uL (1.5-8.5); NEUTROPHILS % 54.4 % (36.0-66.0); PLATELET COUNT, AUTOMATED 286 10^3/uL (150-450); RED BLOOD COUNT 3.47 10^6/uL (4.00-5.40); WHITE BLOOD COUNT 8.2 10^3/uL (4.0-10.0)
[2024-05-25 14:00] LABS: FREE T4 1.48 NG/DL (0.89-1.76); THYROID STIMULATING HORMONE 0.048 uIU/ML (0.55-4.78)
[2024-05-25 14:06] LABS: ALBUMIN 3.3 G/DL (3.2-5.2); BILIRUBIN,DIRECT 0.3 MG/DL (<0.4); BILIRUBIN,TOTAL 0.8 MG/DL (0.3-1.2); CALCIUM LEVEL 9.5 MG/DL (8.3-10.6); CREATININE FOR GFR 11.39 MG/DL (0.55-1.30); GLOMERULAR FILTRATION RATE 3.6 (>45); MAGNESIUM LEVEL 1.8 MG/DL (1.8-2.4); TOTAL PROTEIN 7.1 G/DL (5.7-8.2)
[2024-05-25] MEDS ORDERED: OXYC40TA29 PO (15:08)
[2024-05-25] MEDS ORDERED: MAGN400C PO (15:09)
[2024-05-25] MEDS ORDERED: HOME MED LIST COMPLETE! XX SCH (15:10)
[2024-05-25] MEDS: NS (Normal Saline) 0.9% 1,000 ML IV SCH (15:26)
[2024-05-25] MEDS: CALCIUM GLUCONATE 1,000 MG in DEXTROSE 5% (D5W) MINI-BAG PLU 100 ML IV ONE (15:58)
[2024-05-25] MEDS: NS (Normal Saline) 0.9% 1,000 ML IV ONE (16:00)
[2024-05-25] MEDS: PATIROMER SORBITEX CALCIUM 8.4 GM POWDER PACKET (VELTASSA) PO ONE (16:34)
[2024-05-25] MEDS: cefTRIAXone SOD 1 GM in DEXTROSE 5% (D5W) ADV/MINI-BAG 50 ML IV SCH (17:05)
[2024-05-25 17:17] LABS: C REACTIVE PROTEIN QUANTITATIV 0.63 MG/DL (<1.0)
[2024-05-25 17:29] LABS: PROCALCITONIN 0.39 ng/ml
[2024-05-25] MEDS: INSULIN LISPRO (NovoLOG) PER UNIT SC SCH ×2 (17:30→20:46)
[2024-05-25 17:43] VITALS: BP 118/58; TEMP 97.8; O2SAT 98
[2024-05-25 17:49] LABS: KETONE, URINE AUTO RFX NEGATIVE (NEGATIVE); LEUKOCYTE ESTERASE UR AUTO RFX NEGATIVE (NEGATIVE); MUCUS, URINE RFX SMALL (NEGATIVE); NITRITE, URINE AUTO RFX NEGATIVE (NEGATIVE); RBC, URINE AUTO RFX 4 /HPF (0-3); SQUAM EPITHELIAL CELL UR AURFX 0 /HPF (0-6); WBC, URINE AUTO RFX 3 /HPF (0-3)
[2024-05-25 18:08] LABS: CREATININE,RANDOM URINE 112.7 MG/DL
[2024-05-25] MEDS ORDERED: DEXTROSE 50% 50ML SYRINGE IV PRN (18:20)
[2024-05-25] MEDS ORDERED: GLUCOSE 4 GM CHEW PO PRN (18:20)
[2024-05-25] MEDS ORDERED: GLUCAGON INJ 1MG VIAL SC PRN (18:20)
[2024-05-25] MEDS: LACTOBACILLUS ACIDOPHILUS CAP (BACID) PO SCH (19:02)
[2024-05-25] MEDS: SODIUM BICARBONATE 100 MEQ in D5W 1,000 ML IV SCH (19:03)
[2024-05-25] MEDS: metroNIDAZOLE 500 MG in IV 1 EA IV SCH (19:03)
[2024-05-25 19:39] VITALS: BP 116/53; TEMP 98.7; O2SAT 98
[2024-05-25 20:27] LABS: ABG BASE EXCESS -12.6 (-2.0-2.0); ABG HCO3 13.7 MMOL/L (22.0-26.0); ABG O2 SATURATION 98.4 % (95.0-99.0); ABG PARTIAL PRESSURE CO2 32.8 mmHg (35.0-45.0); ABG PARTIAL PRESSURE O2 145.6 mmHg (75.0-100.0); ABG STANDARD HCO3 14.5 MMOL/L. (22.0-26.0); ABG TOTAL CO2 14.7 MMOL/L (23.0-31.0); ABG pH (ARTERIAL) 7.239 UNITS (7.350-7.450)
[2024-05-25 21:48] LABS: CALCIUM LEVEL 8.8 MG/DL (8.3-10.6); CREATININE FOR GFR 5.72 MG/DL (0.55-1.30); POTASSIUM SERUM 5.2 MMOL/L (3.5-5.1)
[2024-05-25 23:23] VITALS: BP 104/59; TEMP 98.2; O2SAT 98
[2024-05-26] MEDS: LIDOCAINE 5% (LIDODERM) PATCH TD ONE (00:21)
[2024-05-26 04:11] VITALS: BP 90/52; TEMP 97.9; O2SAT 100
[2024-05-26 07:34] VITALS: BP 90/52; TEMP 97.7; O2SAT 99
[2024-05-26 07:58] LABS: BASO % 0.5 % (0.0-1.0); EOS # 0.3 10^3/uL (0.0-0.5); EOS % 6.4 % (0.0-3.0); HEMATOCRIT 23.9 % (36.0-47.0); HEMOGLOBIN 7.8 g/dl (12.0-15.5); LYMPH # 1.3 10^3/uL (1.5-5.0); LYMPH % 30.1 % (24.0-44.0); MEAN CORPUSCULAR HEMOGLOBIN 28.1 pg (27.0-33.0); MEAN CORPUSCULAR HGB CONC 32.6 g/dl (32.0-36.5); MONO # 0.7 10^3/uL (0.0-0.8); MONO % 15.4 % (2.0-8.0); NEUTROPHILS # 2.1 10^3/uL (1.5-8.5); NEUTROPHILS % 47.4 % (36.0-66.0); PLATELET COUNT, AUTOMATED 224 10^3/uL (150-450); RED BLOOD COUNT 2.78 10^6/uL (4.00-5.40); WHITE BLOOD COUNT 4.4 10^3/uL (4.0-10.0)
[2024-05-26 08:16] LABS: CALCIUM LEVEL 8.9 MG/DL (8.3-10.6); CREATININE FOR GFR 2.75 MG/DL (0.55-1.30); GLOMERULAR FILTRATION RATE 18.6 (>45); POTASSIUM SERUM 4.7 MMOL/L (3.5-5.1)
[2024-05-26] MEDS: MIDODRINE 5 MG TAB PO ONE (08:20)
[2024-05-26] MEDS: CALCIUM GLUCONATE 1,000 MG in DEXTROSE 5% (D5W) MINI-BAG PLU 100 ML IV ONE (08:20)
[2024-05-26] MEDS: NS (Normal Saline) 0.9% 1,000 ML IV ONE (08:20)
[2024-05-26 09:30] VITALS: BP 110/56
[2024-05-26] MEDS: PATIROMER SORBITEX CALCIUM 8.4 GM POWDER PACKET (VELTASSA) PO ONE (09:32)
[2024-05-26] MEDS: SODIUM BICARBONATE 325 MG TAB PO ONE (09:32)
[2024-05-26 11:27] VITALS: BP 103/50; TEMP 97.6; O2SAT 97
[2024-05-26] MEDS: LR 1,000 ML IV SCH (12:34)
[2024-05-26] MEDS ORDERED: ONDANSETRON 4MG 2ML VIAL IV PRN (17:45)
[2024-05-26] MEDS: ACETAMINOPHEN *IV* 1,000 MG in IV 1 EA IV ONE (18:50)
[2024-05-26 18:56] VITALS: BP 146/70
[2024-05-26] MEDS: HYDROMORPHONE HCL 0.5 MG/ 0.5 ML SYRINGE IV ONE (18:58)
[2024-05-26] MEDS: LR 1,000 ML IV ONE (18:59)
[2024-05-26 20:30] VITALS: BP 134/67; TEMP 99.8; O2SAT 97
[2024-05-27] MEDS: HYDROMORPHONE HCL 0.5 MG/ 0.5 ML SYRINGE IV ONE ×2 (00:40→09:33)
[2024-05-27 04:51] VITALS: BP 141/78; TEMP 97.6; O2SAT 97
[2024-05-27 06:18] LABS: BASO % 0.4 % (0.0-1.0); EOS % 0.4 % (0.0-3.0); HEMATOCRIT 27.7 % (36.0-47.0); HEMOGLOBIN 9.1 g/dl (12.0-15.5); LYMPH % 21.3 % (24.0-44.0); MEAN CORPUSCULAR HEMOGLOBIN 28.1 pg (27.0-33.0); MEAN CORPUSCULAR HGB CONC 32.9 g/dl (32.0-36.5); MEAN CORPUSCULAR VOLUME 85.5 fl (80.0-96.0); MONO # 0.5 10^3/uL (0.0-0.8); MONO % 9.6 % (2.0-8.0); NEUTROPHILS # 3.3 10^3/uL (1.5-8.5); NEUTROPHILS % 68.1 % (36.0-66.0); PLATELET COUNT, AUTOMATED 262 10^3/uL (150-450); RED BLOOD COUNT 3.24 10^6/uL (4.00-5.40); WHITE BLOOD COUNT 4.9 10^3/uL (4.0-10.0)
[2024-05-27 06:44] LABS: CALCIUM LEVEL 9.5 MG/DL (8.3-10.6); CREATININE FOR GFR 1.18 MG/DL (0.55-1.30); GLOMERULAR FILTRATION RATE 49.4 (>45); PERCENT SATURATION 10.3 % (13.2-45.0); POTASSIUM SERUM 4.2 MMOL/L (3.5-5.1)
[2024-05-27 06:47] LABS: FERRITIN 85.3 NG/ML (7.3-270.7); TOTAL 25(OH) VITAMIN D 19.3 NG/ML (20.0-100.0)
[2024-05-27 07:33] VITALS: BP 151/69; TEMP 97; O2SAT 96
[2024-05-27] MEDS: VITAMIN D 1,000 INTERNATIONAL UNITS TABLET PO SCH (09:32)
[2024-05-27] MEDS: oxyCODONE 5MG TAB PO ONE ×2 (10:15→13:45)
[2024-05-27] MEDS: FERRIC CARBOXYMALTOSE INJ 750 MG, VIAL MATE ADAPTER 1 EACH in NS 100 ML IV ONE (11:54)
[2024-05-27 12:02] VITALS: BP 135/75; TEMP 98.1; O2SAT 94
[2024-05-27 15:43] VITALS: BP 142/86; TEMP 97.9; O2SAT 97
[2024-05-27] MEDS: oxyCODONE 5MG TAB PO PRN (18:08)
[2024-05-27 20:00] VITALS: BP 147/87; TEMP 97.5; O2SAT 96
[2024-05-28 04:00] VITALS: BP 149/86; TEMP 97.9; O2SAT 95
[2024-05-28 05:53] LABS: BASO % 0.3 % (0.0-1.0); EOS # 0.2 10^3/uL (0.0-0.5); EOS % 2.7 % (0.0-3.0); HEMATOCRIT 25.5 % (36.0-47.0); HEMOGLOBIN 8.2 g/dl (12.0-15.5); LYMPH % 33.5 % (24.0-44.0); MEAN CORPUSCULAR HEMOGLOBIN 27.2 pg (27.0-33.0); MEAN CORPUSCULAR HGB CONC 32.2 g/dl (32.0-36.5); MEAN CORPUSCULAR VOLUME 84.4 fl (80.0-96.0); MONO # 0.6 10^3/uL (0.0-0.8); MONO % 10.9 % (2.0-8.0); NEUTROPHILS # 3.1 10^3/uL (1.5-8.5); NEUTROPHILS % 52.4 % (36.0-66.0); PLATELET COUNT, AUTOMATED 241 10^3/uL (150-450); RED BLOOD COUNT 3.02 10^6/uL (4.00-5.40); WHITE BLOOD COUNT 5.9 10^3/uL (4.0-10.0)
[2024-05-28 06:16] LABS: CALCIUM LEVEL 9.1 MG/DL (8.3-10.6); CREATININE FOR GFR 1.12 MG/DL (0.55-1.30); GLOMERULAR FILTRATION RATE 52.5 (>45); POTASSIUM SERUM 3.9 MMOL/L (3.5-5.1)
[2024-05-28] MEDS ORDERED: NS (Normal Saline) 0.9% 1,000 ML IV ONE (07:25)
[2024-05-28] MEDS ORDERED: SENOKOT S TAB PO PRN (07:30)
[2024-05-28] MEDS ORDERED: MOM 30ML SUSPENSION UDC PO PRN (07:30)
[2024-05-28] MEDS ORDERED: LACTULOSE 20GM/30ML SYRUP UDC PO PRN (07:30)
[2024-05-28] MEDS ORDERED: BACI1CAP PO (07:33)
[2024-05-28] MEDS ORDERED: AMLO10TA PO (07:33)
[2024-05-28] MEDS ORDERED: TALK1KIT MC (07:33)
[2024-05-28] MEDS ORDERED: METR-265 PO (07:33)
[2024-05-28] MEDS ORDERED: LEVO1TAB39 PO (07:33)
[2024-05-28 07:50] LABS: PROCALCITONIN 0.28 ng/ml
[2024-05-28] MEDS: NS 0.45% 1,000 ML IV ONE (07:55)
[2024-05-28 08:12] LABS: C REACTIVE PROTEIN QUANTITATIV 0.64 MG/DL (<1.0)
[2024-05-28] MEDS: metroNIDAZOLE (FLAGYL) 500MG TABLET PO SCH (08:58)
[2024-05-28] MEDS: LevoFLOXacin 750 MG TABLET PO SCH (08:58)
[2024-05-28] MEDS: oxyCODONE 5MG TAB PO ONE (08:59)
[2024-05-28 10:50] VITALS: BP 120/68
[2024-05-28 12:39] LABS: BLOOD UREA NITROGEN 26 MG/DL (9-23); CALCIUM LEVEL 9.1 MG/DL (8.3-10.6); CARBON DIOXIDE LEVEL 22 MMOL/L (20-31); CHLORIDE LEVEL 111 MMOL/L (98-107); CREATININE FOR GFR 0.92 MG/DL (0.55-1.30); GLOMERULAR FILTRATION RATE > 60.0 (>45); GLUCOSE, FASTING 117 MG/DL (74-106); POTASSIUM SERUM 3.8 MMOL/L (3.5-5.1); SODIUM LEVEL 144 MMOL/L (136-145)
[2024-05-29] MEDS ORDERED: LevoFLOXacin 750 MG TABLET PO SCH (06:00)
== END 2024-05-28 14:09 | disposition home or self-care (01) | DRG 871 ==
LOC: EDBD 12:32 → M ED 12:32 → M ED INP 15:29 → M PCU 17:37 → M MSPAV 05-27 15:42
PROVIDERS: ADMIT General Practice; ATTEND General Practice
DX: A41.9 Sepsis, unspecified organism (principal); N17.0 Acute kidney failure with tubular necrosis; E87.20 Acidosis, unspecified; E87.1 Hypo-osmolality and hyponatremia; J98.11 Atelectasis; M87.9 Osteonecrosis, unspecified; E86.1 Hypovolemia; M32.9 Systemic lupus erythematosus, unspecified; M35.00 Sjogren syndrome, unspecified; Z93.2 Ileostomy status; Z90.49 Acquired absence of other specified parts of digestive tract; E87.5 Hyperkalemia; D63.8 Anemia in other chronic diseases classified elsewhere; D50.9 Iron deficiency anemia, unspecified; E03.9 Hypothyroidism, unspecified; M19.011 Primary osteoarthritis, right shoulder; M19.012 Primary osteoarthritis, left shoulder; G89.4 Chronic pain syndrome; G43.909 Migraine, unspecified, not intractable, without status migrainosus; I73.00 Raynaud's syndrome without gangrene; J45.909 Unspecified asthma, uncomplicated; I10 Essential (primary) hypertension; F32.A Depression, unspecified; F41.9 Anxiety disorder, unspecified; K52.9 Noninfective gastroenteritis and colitis, unspecified; E86.0 Dehydration; Z95.0 Presence of cardiac pacemaker; Z79.899 Other long term (current) drug therapy; Z88.0 Allergy status to penicillin; Z88.8 Allergy status to other drugs, medicaments and biological substances; Z91.040 Latex allergy status; Z91.013 Allergy to seafood; Z86.73 Personal history of transient ischemic attack (TIA), and cerebral infarction without residual deficits; Z90.79 Acquired absence of other genital organ(s); Z91.018 Allergy to other foods; Z88.2 Allergy status to sulfonamides

== ENCOUNTER → 2024-07-05 | Outpatient (CLI) | payer OTHER ==
[~2024-07-05] MED LIST changes: +AMLO10TA PO; +BACI1CAP PO; +GASTROGRAFIN SOLUTION 30ML As Ordered ONE; +LEVO1TAB39 PO; +MAGN400C PO; +METR-265 PO; +TALK1KIT MC
== END ==
LOC: M RAD 15:11
PROVIDERS: ATTEND Surgery
DX: Z43.2 Encounter for attention to ileostomy (principal); Z90.49 Acquired absence of other specified parts of digestive tract; Z98.0 Intestinal bypass and anastomosis status
CPT/HCPCS: 74176; Q9963

== ENCOUNTER → 2024-07-08 | Outpatient (CLI) | payer OTHER ==
[~2024-07-08] MED LIST changes: -GASTROGRAFIN SOLUTION 30ML As Ordered ONE
[2024-07-08 17:39] LABS: HEMATOCRIT 31.1 % (36.0-47.0); HEMOGLOBIN 10.1 g/dl (12.0-15.5); MEAN CORPUSCULAR HEMOGLOBIN 26.9 pg (27.0-33.0); MEAN CORPUSCULAR HGB CONC 32.5 g/dl (32.0-36.5); MEAN CORPUSCULAR VOLUME 82.7 fl (80.0-96.0); PLATELET COUNT, AUTOMATED 369 10^3/uL (150-450); RED BLOOD COUNT 3.76 10^6/uL (4.00-5.40); WHITE BLOOD COUNT 7.3 10^3/uL (4.0-10.0)
[2024-07-08 18:06] LABS: BLOOD UREA NITROGEN 19 MG/DL (9-23); CALCIUM LEVEL 9.2 MG/DL (8.3-10.6); CARBON DIOXIDE LEVEL 24 MMOL/L (20-31); CHLORIDE LEVEL 106 MMOL/L (98-107); CREATININE FOR GFR 0.81 MG/DL (0.55-1.30); GLOMERULAR FILTRATION RATE > 60.0 (>45); GLUCOSE, FASTING 104 MG/DL (74-106); POTASSIUM SERUM 3.8 MMOL/L (3.5-5.1); SODIUM LEVEL 140 MMOL/L (136-145)
[2024-07-08 18:42] LABS: PREALBUMIN 24.2 MG/DL (10.0-40.0)
== END ==
LOC: M PLALAB 14:48
PROVIDERS: ATTEND Surgery
DX: Z43.2 Encounter for attention to ileostomy (principal)

== ENCOUNTER → 2024-08-15 | Outpatient (CLI) | payer OTHER ==
[2024-08-15 17:47] LABS: BASO # 0.1 10^3/uL (0.0-0.2); BASO % 0.8 % (0.0-1.0); EOS # 0.3 10^3/uL (0.0-0.5); EOS % 3.6 % (0.0-3.0); HEMATOCRIT 29.9 % (36.0-47.0); HEMOGLOBIN 9.4 g/dl (12.0-15.5); LYMPH # 2.7 10^3/uL (1.5-5.0); LYMPH % 37.1 % (24.0-44.0); MEAN CORPUSCULAR HEMOGLOBIN 26.1 pg (27.0-33.0); MEAN CORPUSCULAR HGB CONC 31.4 g/dl (32.0-36.5); MEAN CORPUSCULAR VOLUME 83.1 fl (80.0-96.0); MONO # 0.7 10^3/uL (0.0-0.8); NEUTROPHILS # 3.6 10^3/uL (1.5-8.5); NEUTROPHILS % 49.2 % (36.0-66.0); PLATELET COUNT, AUTOMATED 396 10^3/uL (150-450); WHITE BLOOD COUNT 7.3 10^3/uL (4.0-10.0)
[2024-08-15 18:14] LABS: ALKALINE PHOSPHATASE 67 U/L (35-104); ALT/SGPT 14 U/L (7.0-40); AST/SGOT 17 U/L (<34); BILIRUBIN,TOTAL 0.4 MG/DL (0.3-1.2); BLOOD UREA NITROGEN 13 MG/DL (9-23); CALCIUM LEVEL 9.1 MG/DL (8.3-10.6); CARBON DIOXIDE LEVEL 26 MMOL/L (20-31); CHLORIDE LEVEL 107 MMOL/L (98-107); CREATININE FOR GFR 0.81 MG/DL (0.55-1.30); GLOMERULAR FILTRATION RATE > 60.0 (>45); GLUCOSE, FASTING 121 MG/DL (74-106); MAGNESIUM LEVEL 1.8 MG/DL (1.8-2.4); POTASSIUM SERUM 4.7 MMOL/L (3.5-5.1); SODIUM LEVEL 141 MMOL/L (136-145)
== END ==
LOC: M PLALAB 08-11 11:18
DX: Z93.2 Ileostomy status (principal); N82.4 Other female intestinal-genital tract fistulae

== ENCOUNTER → 2025-02-16 | Outpatient (CLI) | payer OTHER ==
[~2025-02-16] MED LIST changes: +AMLO-751 PO; -AMLO10TA PO
[2025-02-16 15:26] LABS: PLATELET COUNT, AUTOMATED 385 10^3/uL (150-450)
[2025-02-16 15:32] LABS: C REACTIVE PROTEIN QUANTITATIV < 0.50 MG/DL (<1.0); ERYTHROCYTE SEDIMENTATION RATE 54 mm/hr (0-30)
[2025-02-16 15:33] LABS: ALT/SGPT 43 U/L (7.0-40); AST/SGOT 50 U/L (<34); CALCIUM LEVEL 9.0 MG/DL (8.3-10.6); CARBON DIOXIDE LEVEL 27 MMOL/L (20-31); CHLORIDE LEVEL 103 MMOL/L (98-107); CREATININE FOR GFR 0.86 MG/DL (0.55-1.30); GLOMERULAR FILTRATION RATE 76.3 (>45); POTASSIUM SERUM 3.9 MMOL/L (3.5-5.1); SODIUM LEVEL 140 MMOL/L (136-145)
== END ==
LOC: M PLAIMG 13:55
DX: M32.9 Systemic lupus erythematosus, unspecified (principal)

== ENCOUNTER → 2025-03-03 | Outpatient (CLI) | payer OTHER ==
[~2025-03-03] MED LIST changes: +ISOVUE-370 76% 100 ML VIAL ONE
== END ==
LOC: M PLAIMG 11:44
DX: Z98.890 Other specified postprocedural states (principal)
CPT/HCPCS: 74177; Q9967

== ENCOUNTER → 2025-05-09 | Outpatient (CLI) | payer OTHER ==
[~2025-05-09] MED LIST changes: -ISOVUE-370 76% 100 ML VIAL ONE; -OXYC40TA40 PO; +OXYC40TA41 PO; -PROC5TAB57 PO; +PROC5TAB81 PO
[2025-05-09 15:35] LABS: ALT/SGPT 51.0 U/L (7.0-40); AST/SGOT 48.0 U/L (<34); CALCIUM LEVEL 9.2 MG/DL (8.3-10.6); CARBON DIOXIDE LEVEL 26.0 MMOL/L (20-31); CHLORIDE LEVEL 99.0 MMOL/L (98-107); CREATININE FOR GFR 0.95 MG/DL (0.55-1.30); GLOMERULAR FILTRATION RATE 67.3 (>45); MAGNESIUM LEVEL 2.4 MG/DL (1.8-2.4); POTASSIUM SERUM 4.1 MMOL/L (3.5-5.1); SODIUM LEVEL 137.0 MMOL/L (136-145)
== END ==
LOC: M PLALAB 12:56
PROVIDERS: ATTEND Family Medicine
DX: E83.42 Hypomagnesemia (principal)